=== PATIENT | female | born 1960 | race Caucasian/White ===

== ENCOUNTER → 2017-11-18 | Outpatient (CLI) | payer OTHER | END | disposition home or self-care (01) | LOC: LAB SHORT 13:43 → LAB SRC 13:43 | DX: N39.0 Urinary tract infection, site not specified (principal) | CPT/HCPCS: 87077; 87086; 87186 ==

== ENCOUNTER → 2021-03-28 | Outpatient (CLI) | payer OTHER ==
[~2021-03-28] MED LIST: DEXA6 PO; ONDA4ODT MM
[2021-03-28 08:40] LABS: BASOPHILS ABSOLUTE AUTO 0.01 K/mm3 (0.00-0.23); BASOPHILS PERCENT AUTO 0 % (0-2); EOSINOPHILS PERCENT AUTO 0 % (0-6); Hematocrit 40.7 % (33.0-51.0); Hemoglobin 13.7 g/dL (11.5-16.0); IMMATURE GRAN ABSOLUTE AUTO 0.04 K/mm3 (0.00-0.10); IMMATURE GRAN PERCENT AUTO 1 % (0-1); LYMPHOCYTES ABSOLUTE AUTO 0.64 K/mm3 (0.84-5.20); LYMPHOCYTES PERCENT AUTO 13 % (21-46); MONOCYTES ABSOLUTE AUTO 0.42 K/mm3 (0.16-1.47); MONOCYTES PERCENT AUTO 8 % (4-13); Mean Corpuscular HGB 28.8 pg (26.0-34.0); Mean Corpuscular HGB Conc 33.7 g/dL (31.5-36.5); Mean Corpuscular Volume 86 fL (80-100); NEUTROPHILS ABSOLUTE AUTO 4.01 K/mm3 (1.96-9.15); NEUTROPHILS PERCENT AUTO 78 % (41-73); RDW Coefficient Variation 13.2 % (11.7-14.2); RDW Standard Deviation 41.1 fL (35.1-46.3); Red Blood Cell Count 4.75 M/mm3 (3.80-5.20); White Blood Cell Count 5.12 K/mm3 (4.00-11.30)
[2021-03-28 08:51] LABS: Albumin, Blood 3.6 g/dL (3.4-5.0); Albumin/Globulin Ratio 0.9 (0.8-1.8); Bilirubin, Total 0.6 mg/dL (0.1-1.0); Calcium, Blood 8.5 mg/dL (8.5-10.1); Creatinine, Blood 1.19 mg/dL (0.40-1.00); Globulin, Blood 3.9 g/dL (2.2-4.0); Potassium, Blood 4.7 mmol/L (3.5-5.5); Total Protein, Blood 7.5 g/dL (6.4-8.2)
[2021-03-28 09:01] LABS: Mean Platelet Volume 9.9 fL (9.1-12.4); Platelet Count 105 K/mm3 (150-400)
== END | disposition home or self-care (01) ==
LOC: LAB 08:36 → LAB SHORT 08:36
PROVIDERS: Chiropractor
DX: U07.1 COVID-19 (principal)
CPT/HCPCS: 80053; 85025; 85379

== ENCOUNTER 2021-03-30 19:05 | Emergency (ER) | payer OTHER ==
[~2021-03-30] VITALS: Ht 157.5 cm; Wt 113.4 kg
[~2021-03-30 19:05] MED LIST changes: -ONDA4ODT MM
[2021-03-30] MEDS ORDERED: ONDA4ODT MM (19:43)
== END 2021-03-30 20:27 | disposition home or self-care (01) ==
LOC: ER 19:05
DX: U07.1 COVID-19 (principal); I10 Essential (primary) hypertension; E11.9 Type 2 diabetes mellitus without complications
CPT/HCPCS: 36415; 82947; 93005; 93010; 99284-25

== ENCOUNTER 2021-04-03 18:39 | Inpatient (IN) | payer OTHER ==
[~2021-04-03] VITALS: Ht 157.5 cm; Wt 106.1 kg
[~2021-04-03 18:39] MED LIST changes: +ONDA4ODT MM
[2021-04-03 19:18] LABS: Hematocrit 41.8 % (33.0-51.0); Hemoglobin 13.7 g/dL (11.5-16.0); Mean Corpuscular HGB 28.1 pg (26.0-34.0); Mean Corpuscular HGB Conc 32.8 g/dL (31.5-36.5); Mean Corpuscular Volume 86 fL (80-100); Mean Platelet Volume 10.1 fL (9.1-12.4); NRBC ABSOLUTE 0.17 K/mm3 (0.00-0.02); Platelet Count 122 K/mm3 (150-400); RDW Coefficient Variation 13.1 % (11.7-14.2); RDW Standard Deviation 40.9 fL (35.1-46.3); Red Blood Cell Count 4.87 M/mm3 (3.80-5.20); White Blood Cell Count 17.65 K/mm3 (4.00-11.30)
[2021-04-03 19:42] LABS: Troponin I 0.133 ng/mL (0.000-0.040)
[2021-04-03 19:48] LABS: Albumin, Blood 2.7 g/dL (3.4-5.0); Albumin/Globulin Ratio 0.8 (0.8-1.8); Bilirubin, Total 0.9 mg/dL (0.1-1.0); Bun/Creatinine Ratio 47.7 (12.0-20.0); Calcium, Blood 8.6 mg/dL (8.5-10.1); Creatinine, Blood 0.97 mg/dL (0.40-1.00); Globulin, Blood 3.6 g/dL (2.2-4.0); Potassium, Blood 3.7 mmol/L (3.5-5.5); Total Protein, Blood 6.3 g/dL (6.4-8.2)
[2021-04-03 20:08] LABS: BAND PERCENT MAN 20 % (0-8); BASOPHILS PERCENT MAN 0 % (0-2); EOSINOPHILS PERCENT MAN 0 % (0-6); LYMPHOCYTES % ATYPICAL MANUAL 4 % (0-0); LYMPHOCYTES ABSOLUTE MAN 0.88 K/mm3 (0.84-5.20); LYMPHOCYTES PERCENT MAN 1 % (21-46); MONOCYTES PERCENT MAN 0 % (4-13); NEUTROPHILS ABSOLUTE MAN 16.76 K/mm3 (1.96-9.15); SEG NEUTROPHILS PERCENT MAN 75 % (41-73); TOTAL CELLS COUNTED 100
[2021-04-03 20:11] LABS: PCO2 Arterial 33.4 mmHg (35-45); PO2 Arterial 65.5 mmHg (80-100); pH Blood Arterial 7.43 (7.35-7.45)
[2021-04-03 22:30] LABS: International Normalized Ratio 1.12
[2021-04-03] MEDS ORDERED: METF500 PO (23:02)
[2021-04-03] MEDS ORDERED: ESCI20 PO (23:02)
[2021-04-03] MEDS ORDERED: CALCIUM CIT 311 EAC7 PO (23:03)
[2021-04-03] MEDS ORDERED: BASAGLAR K100 UNIT/1 SC (23:03)
[2021-04-03] MEDS ORDERED: MAGNESIUM OXID500 MG PO (23:04)
[2021-04-03] MEDS ORDERED: OMEP20ER PO (23:04)
[2021-04-03] MEDS ORDERED: Crestor20 MG PO (23:04)
[2021-04-03] MEDS ORDERED: EUTHYROX175 MCG PO (23:04)
[2021-04-03] MEDS ORDERED: FURO20 PO (23:05)
[2021-04-03] MEDS ORDERED: LISI20 PO (23:05)
[2021-04-03] MEDS ORDERED: POTCHL20ER PO (23:05)
[2021-04-03] MEDS ORDERED: HYDCHL25 PO (23:06)
[2021-04-03] MEDS ORDERED: DOCU100 PO (23:06)
[2021-04-03] MEDS ORDERED: [UNRECOGNIZED DRUG - CODE] PO (23:07)
[2021-04-03] MEDS ORDERED: AMLO5 PO (23:07)
[2021-04-03] MEDS ORDERED: CETI5 PO (23:07)
[2021-04-03] MEDS ORDERED: PIOG15 PO (23:07)
[2021-04-03] MEDS ORDERED: MEGARED OMEGA PO (23:08)
[2021-04-03 23:39] LABS: C-Reactive Protein, High Sens. 66.7 mg/L (0.000-3.000)
[2021-04-04 03:36] LABS: BASOPHILS ABSOLUTE AUTO 0.07 K/mm3 (0.00-0.23); BASOPHILS PERCENT AUTO 0 % (0-2); EOSINOPHILS PERCENT AUTO 0 % (0-6); Hematocrit 40.4 % (33.0-51.0); Hemoglobin 13.3 g/dL (11.5-16.0); IMMATURE GRAN PERCENT AUTO 5 % (0-1); LYMPHOCYTES ABSOLUTE AUTO 0.78 K/mm3 (0.84-5.20); LYMPHOCYTES PERCENT AUTO 5 % (21-46); MONOCYTES ABSOLUTE AUTO 0.56 K/mm3 (0.16-1.47); MONOCYTES PERCENT AUTO 4 % (4-13); Mean Corpuscular HGB 28.4 pg (26.0-34.0); Mean Corpuscular HGB Conc 32.9 g/dL (31.5-36.5); Mean Corpuscular Volume 86 fL (80-100); Mean Platelet Volume 10.3 fL (9.1-12.4); NEUTROPHILS PERCENT AUTO 87 % (41-73); NRBC ABSOLUTE 0.23 K/mm3 (0.00-0.02); NRBC Auto 1.5 /100 WBC (0.0-0.2); Platelet Count 105 K/mm3 (150-400); RDW Coefficient Variation 13.2 % (11.7-14.2); RDW Standard Deviation 41.1 fL (35.1-46.3); Red Blood Cell Count 4.69 M/mm3 (3.80-5.20); White Blood Cell Count 15.61 K/mm3 (4.00-11.30)
[2021-04-04 03:53] LABS: Alanine Aminotransfer (ALT/SGP 17 U/L (12-78); Albumin, Blood 2.7 g/dL (3.4-5.0); Albumin/Globulin Ratio 0.8 (0.8-1.8); Alk Phos 69 U/L (50-136); Anion Gap 6 mmol/L (6-16); Aspartate Aminotrans (AST/SGOT 20 U/L (12-37); Bilirubin, Total 0.7 mg/dL (0.1-1.0); Blood Urea Nitrogen 32 mg/dL (8-24); Bun/Creatinine Ratio 35.5 (12.0-20.0); CO2, Blood 28 mmol/L (21-32); Calcium, Blood 8.4 mg/dL (8.5-10.1); Chloride, Blood 106 mmol/L (98-108); Globulin, Blood 3.5 g/dL (2.2-4.0); Glomerular Filtration Rate >60 (60-); Glucose, Blood 335 mg/dL (70-99); Potassium, Blood 3.8 mmol/L (3.5-5.5); Sodium, Blood 140 mmol/L (136-145); Total Protein, Blood 6.2 g/dL (6.4-8.2)
--- NOTE | 2021-04-04 04:37 | NUR ---
SHIFT SUMMARY PT TO UNIT FROM ER AT 0140. ALERT TO SELF. ON NRB 15L WITH CANNULA @ 10L. SPO2 90%. HEPARIN GTT STARTED. LUNGS CLEAR T/O. WITHIN 20 MINUTES, PT DESATTED TO 80%. DESPITE TURNING UP HIFLO CANNULA TO 15L WITH 15NRB OMN TOP, PT REMAINED IN LOW 80'S SPO2. RT CALLED, PT PLACED ON CPAP [id number], PT NOW 91%. PT RESTRAINED UPON ARRIVAL FROM ED, SBWR. THESE REMAIN PT TRIED TO TAKE MASK OFF SOON RESTRSINT WAS REMOVED. OTHERWISE, PT SETTLED IN ROOM. BED ALARM ON. IN ISOLATION.
--- NOTE | 2021-04-04 12:51 | NUR ---
Echocardiogram completed.
--- NOTE | 2021-04-04 14:33 | NUR ---
REASSESSMENT PT HAS CONTINUED TO BE ALERT AND ORIENTED THIS MORNING. SHE IS WEARING THE CPAP AND TOELRATING IT WITH ONLY MILD ANXIETY. SHE TOELRATED ABOUT A 10 MINUTE BREAK AT NOON WHILE WEARING 12L VIA HI FLOW NC BEFORE SHE DESATURATED TO THE LOW 80S. HER LUNGS ARE CLEAR. SR, BP STABLE. CORONA DRAINING WELL. SPOKE WT PT'S BRYANT RICHARDS, AFTER PT GAVE PERMISSION AND PROVIDED UPDATE. CONTINUING TO MONITOR.
--- NOTE | 2021-04-04 17:39 | NUR ---
SHIFT SUMMARY PT HAS BEEN RESTING ON THE CPAP THROUGHOUT THE DAY. SHE IS STILL NOT TOLERATING LONG BREAKS OFF OF THE CPAP EVEN WITH 12L HI FLOW NC. LUNGS ARE CLEAR, DIM. SR, BP STABLE. HEPARIN INFUSING. CONTINUING TO MONITOR.
--- NOTE | 2021-04-05 04:46 | NUR ---
SHIFT SUMMARY NO ACUTE CHANGES THIS SHIFT. VSS. REMAINS ON CPAP 15L 60% REMAINS AROUND 94%, IF PT TAKES MASK OFF, DESATS TO 75%. PT ANXIOUS AT TIMES. MENTATION WANES FROM ALERTNESS TO INTERMITTENT CONFUSION. PT REMAINS IN SR. CORONA PATENT AND DRAINING. PT ALMOST PULLED POWERGLIDE TODAY BUT IT WAS REDRESSED, HIDDEN UNDER ANTONIO WRAP AND CONTINUES TO INFUSE WELL AND DRAW EASILY. HEPARIN CONTINUING TO INFUSE PER PHARMACY. JAK MENON UPDATED ON PT COMNDITION. OTHERWISE, PT REMAINS IN BED, BED ALARM ON, IN ISOLATION.
[2021-04-05 07:56] LABS: Hematocrit 38.2 % (33.0-51.0); Hemoglobin 12.4 g/dL (11.5-16.0); Mean Corpuscular HGB 28.3 pg (26.0-34.0); Mean Corpuscular HGB Conc 32.5 g/dL (31.5-36.5); Mean Corpuscular Volume 87 fL (80-100); Mean Platelet Volume 11.2 fL (9.1-12.4); NRBC ABSOLUTE 0.06 K/mm3 (0.00-0.02); NRBC Auto 0.3 /100 WBC (0.0-0.2); Platelet Count 134 K/mm3 (150-400); RDW Coefficient Variation 13.7 % (11.7-14.2); RDW Standard Deviation 42.6 fL (35.1-46.3); Red Blood Cell Count 4.38 M/mm3 (3.80-5.20); White Blood Cell Count 18.27 K/mm3 (4.00-11.30)
[2021-04-05 08:16] LABS: Alanine Aminotransfer (ALT/SGP 15 U/L (12-78); Albumin, Blood 2.7 g/dL (3.4-5.0); Albumin/Globulin Ratio 0.8 (0.8-1.8); Alk Phos 71 U/L (50-136); Anion Gap 9 mmol/L (6-16); Aspartate Aminotrans (AST/SGOT 18 U/L (12-37); Bilirubin, Total 0.6 mg/dL (0.1-1.0); Blood Urea Nitrogen 27 mg/dL (8-24); CO2, Blood 27 mmol/L (21-32); Calcium, Blood 8.7 mg/dL (8.5-10.1); Chloride, Blood 105 mmol/L (98-108); Creatinine, Blood 0.75 mg/dL (0.40-1.00); Globulin, Blood 3.5 g/dL (2.2-4.0); Glomerular Filtration Rate >60 (60-); Glucose, Blood 322 mg/dL (70-99); Magnesium, Blood 2.6 mg/dL (1.6-2.4); Potassium, Blood 3.3 mmol/L (3.5-5.5); Sodium, Blood 141 mmol/L (136-145); Total Protein, Blood 6.2 g/dL (6.4-8.2)
[2021-04-05 08:21] LABS: BAND PERCENT MAN 3 % (0-8); BASOPHILS PERCENT MAN 0 % (0-2); EOSINOPHILS PERCENT MAN 0 % (0-6); LYMPHOCYTES ABSOLUTE MAN 0.54 K/mm3 (0.84-5.20); LYMPHOCYTES PERCENT MAN 3 % (21-46); MONOCYTES ABSOLUTE MAN 0.73 K/mm3 (0.16-1.47); MONOCYTES PERCENT MAN 4 % (4-13); MYELOCYTE ABSOLUTE MAN 0.18 K/mm3 (0.00-0.00); MYELOCYTE PERCENT MAN 1 % (0-0); SEG NEUTROPHILS PERCENT MAN 89 % (41-73); TOTAL CELLS COUNTED 100
--- NOTE | 2021-04-05 13:31 | NUR ---
CARE NOTE PT ALERT TO SELF AND PLACE BUT DISPLAYS CONFUSION AT TIMES. SHE FOLLOWS DIRECTIONS APPROPRIATELY AND IS PLEASANT W/ CARE. WHEN THIS NURSE CAME ON SHIFT SHE WAS ON CPAP W/ FIO2 55 %, CPAP PRESSURE 10. HIGH FLOW NASAL CANNULA TRIALED THIS AM AND PATIENT TOLERATED WELL WITH SATURATIONS RANGING FROM 88-92%. PATIENT PUT ON CPAP WHEN SLEEPING AND THEN HIGH FLOW AGAIN FOR LUNCH. WHILE PATIENT WAS EATING LUNCH, SHE BEGAN DESATING TO HIGH 70'S. CHARGE NURSE LUC WENT INTO PATIENT ROOM AND PUT CPAP BACK ON; SATURATIONS INCREASED BACK TO 96-97%. PATIENT IS NOW SLEEPING ON LEFT SIDE. BED ALARM ON. WILL CONTINUE TO MONITOR.
--- NOTE | 2021-04-05 18:06 | NUR ---
SHIFT SUMMARY PT REMAINS ALERT TO SELF AND PLACE BUT STILL DISPLAYS SOME DISORIENTATION. PT NOW ON HIGH FLOW NASAL CANNULA 15L/MIN AND SATURATIONS REMAIN AT 90%; PT ON CANNULA FOR DINNER, WILL BE PUT BACK ON CPAP AFTER DONE EATING. CPAP SETTINGS REMAIN AT 55% FIO2, PRESSURE 10. SBP RANGED 140-152, HR 68-73. LEFT POWERGLIDE IS INFUSING HEPARIN DRIP PER ORDERS, CORONA CATHETER IS PATENT AND DRAINING W/ GRAVITY CLEAR YELLOW URINE. THIS NURSE SPOKE W/ PATIENT DAUGHTER TIM AND UPDATED HER ON PATIENT STATUS. NO OTHER ACUTE CHANGES NOTED. CALL LIGHT IN REACH, BED ALARM ON. WILL CONTINUE TO MONITOR.
--- NOTE | 2021-04-06 06:04 | NUR ---
Shift Summary Pt has slept for the majority of the night. Pt required maximum assistance for repositioning, but tolerated well. Pt has been on CPAP at [id number] / 80% FiO2 and SpO2 has remained >90% for the duration. Pt has used call light appropriately. Pt is alert and oriented to self, place, and time, but seems to have difficulty recalling details of family when asked. Pt has remained in NSR and SB during sleep, multiple episodes of their heart rate dipping as low as 43 bpm. Pt has been easily arousible and denies any c/o chest pain or dizziness. No other acute changes noted.
[2021-04-06 09:08] LABS: Hematocrit 39.4 % (33.0-51.0); Hemoglobin 12.9 g/dL (11.5-16.0); Mean Corpuscular HGB 28.5 pg (26.0-34.0); Mean Corpuscular HGB Conc 32.7 g/dL (31.5-36.5); Mean Corpuscular Volume 87 fL (80-100); Mean Platelet Volume 11.5 fL (9.1-12.4); Platelet Count 147 K/mm3 (150-400); RDW Coefficient Variation 13.5 % (11.7-14.2); RDW Standard Deviation 42.4 fL (35.1-46.3); Red Blood Cell Count 4.53 M/mm3 (3.80-5.20); White Blood Cell Count 17.87 K/mm3 (4.00-11.30)
--- NOTE | 2021-04-06 09:17 | NUR ---
Call to daughter Valentine to update her on pt condition this morning. I was able to wean her down from 85% fio2 on the cpap to 70%, still 10 cm H20. She was intolerant of the hi flow nasal cannula, which was attempted at 15 l/min to see if she could wear it while eating breakfast; however, spo2 dropped within 1 minute to 84% so the cpap was put back on. Pt states she doesn't feel very hungry. Encouraged mobilization of the pt; she states she can self reposition from side to side in bed. Encouraged compliance also with staff requests to position with assistance in prone position, educated pt on the benefits of these activities for her lung healing and increasing her oxygenation. She verbalized understanding. Otherwise, she is calm, non-anxious, and apparently cheerful and oriented.
[2021-04-06 09:22] LABS: Anion Gap 7 mmol/L (6-16); Blood Urea Nitrogen 21 mg/dL (8-24); Bun/Creatinine Ratio 34.7 (12.0-20.0); CO2, Blood 28 mmol/L (21-32); Calcium, Blood 8.5 mg/dL (8.5-10.1); Chloride, Blood 104 mmol/L (98-108); Creatinine, Blood 0.61 mg/dL (0.40-1.00); Glomerular Filtration Rate >60 (60-); Glucose, Blood 321 mg/dL (70-99); Potassium, Blood 3.4 mmol/L (3.5-5.5); Sodium, Blood 139 mmol/L (136-145)
[2021-04-06 09:34] LABS: BAND PERCENT MAN 21 % (0-8); BASOPHILS PERCENT MAN 0 % (0-2); EOSINOPHILS PERCENT MAN 0 % (0-6); LYMPHOCYTES % ATYPICAL MANUAL 2 % (0-0); LYMPHOCYTES ABSOLUTE MAN 1.42 K/mm3 (0.84-5.20); LYMPHOCYTES PERCENT MAN 6 % (21-46); METAMYELOCYTE ABSOLUTE MAN 0.17 K/mm3 (0.00-0.00); METAMYELOCYTE PERCENT MAN 1 % (0-0); MONOCYTES ABSOLUTE MAN 0.17 K/mm3 (0.16-1.47); MONOCYTES PERCENT MAN 1 % (4-13); MYELOCYTE ABSOLUTE MAN 0.17 K/mm3 (0.00-0.00); MYELOCYTE PERCENT MAN 1 % (0-0); SEG NEUTROPHILS PERCENT MAN 68 % (41-73); TOTAL CELLS COUNTED 100
--- NOTE | 2021-04-06 09:53 | NUR ---
assisted to BSC for BM. On cpap during activity with fio2 unchanged , 70%. pt spo2 was 96% at rest before the activity, hypoxia to 81% during activity, improved to 92% while still on BSC.
--- NOTE | 2021-04-06 12:24 | NUR ---
Encouraged pt to sit up and eat while on AirVo. She is tolerating, spo2 91% with the activity.
--- NOTE | 2021-04-06 17:35 | NUR ---
episodes of hypoxia while sitting up in chair, eating dinner. Required bipap cpap for recovery. increased AirVo to 96% O2 delivery, and instructed pt to pause between in bite to breathe deeply and slowly a few times through her nose to maintain good spo2. Encouraged deep breathing and coughing. she has a moist, productive cough.
--- NOTE | 2021-04-06 18:26 | NUR ---
pt is managing to eat dinner, slowly, to maintain spo2 greater than 90%.
[2021-04-07 00:52] LABS: Hematocrit 37.2 % (33.0-51.0); Hemoglobin 12.3 g/dL (11.5-16.0); Mean Corpuscular HGB 28.7 pg (26.0-34.0); Mean Corpuscular HGB Conc 33.1 g/dL (31.5-36.5); Mean Corpuscular Volume 87 fL (80-100); Platelet Count 129 K/mm3 (150-400); RDW Coefficient Variation 13.5 % (11.7-14.2); RDW Standard Deviation 41.9 fL (35.1-46.3); Red Blood Cell Count 4.29 M/mm3 (3.80-5.20)
[2021-04-07 01:13] LABS: BAND PERCENT MAN 4 % (0-8); BASOPHILS PERCENT MAN 0 % (0-2); EOSINOPHILS PERCENT MAN 0 % (0-6); LYMPHOCYTES ABSOLUTE MAN 0.33 K/mm3 (0.84-5.20); LYMPHOCYTES PERCENT MAN 2 % (21-46); METAMYELOCYTE ABSOLUTE MAN 0.33 K/mm3 (0.00-0.00); METAMYELOCYTE PERCENT MAN 2 % (0-0); MONOCYTES ABSOLUTE MAN 0.16 K/mm3 (0.16-1.47); MONOCYTES PERCENT MAN 1 % (4-13); MYELOCYTE ABSOLUTE MAN 0.33 K/mm3 (0.00-0.00); MYELOCYTE PERCENT MAN 2 % (0-0); NEUTROPHILS ABSOLUTE MAN 15.53 K/mm3 (1.96-9.15); SEG NEUTROPHILS PERCENT MAN 89 % (41-73); TOTAL CELLS COUNTED 100
[2021-04-07 01:15] LABS: Alanine Aminotransfer (ALT/SGP 17 U/L (12-78); Albumin, Blood 2.4 g/dL (3.4-5.0); Albumin/Globulin Ratio 0.7 (0.8-1.8); Alk Phos 75 U/L (50-136); Anion Gap 4 mmol/L (6-16); Aspartate Aminotrans (AST/SGOT 16 U/L (12-37); Bilirubin, Total 0.4 mg/dL (0.1-1.0); Blood Urea Nitrogen 19 mg/dL (8-24); Bun/Creatinine Ratio 26.9 (12.0-20.0); CO2, Blood 31 mmol/L (21-32); Calcium, Blood 8.2 mg/dL (8.5-10.1); Chloride, Blood 103 mmol/L (98-108); Creatinine, Blood 0.71 mg/dL (0.40-1.00); Globulin, Blood 3.3 g/dL (2.2-4.0); Glomerular Filtration Rate >60 (60-); Glucose, Blood 255 mg/dL (70-99); Potassium, Blood 3.3 mmol/L (3.5-5.5); Sodium, Blood 138 mmol/L (136-145); Total Protein, Blood 5.7 g/dL (6.4-8.2)
--- NOTE | 2021-04-07 05:47 | NUR ---
Shift Summary Pt has slept for the majority of the night with no episodes of dyspnea or desaturation. Pt has maintained a sinus bradycardia of low 50's. Pt has been on Airvo 60L/80%FiO2 all night. Pt was able to transfer from chair to bed and reposition self with instruction and one person managing lines without desaturation below 88%, recovered quickly. Pt was A&O x4 and was able to maintain conversation with only minor memory recall issues. No other acute changes noted.
--- NOTE | 2021-04-07 10:34 | NUR ---
pt laying in bed trying to eat breakfast, a/ox3 but forgetful, pleasant and cooperative with care, she is currently on airvo and sats are in the low 80's while she eats, placed a nonrebreather in addition to airvo, sats are in mid 90s now, lungs are dim t/o, resp even and mildly labored, sats drop with activty, hrr, in the 60's, tele in place running sr, no edema noted, ppp+2, cap refill< 3sec, vs stable, afebrile, iv site is power glide to vania, site is clear and patent, infusing heperin as ordered, btx4, abd round soft nontender voids via olivia cath draining clear yellow urine, skin c/w/d, branden, hussein, rola, call light in reach.
--- NOTE | 2021-04-07 11:44 | NUR ---
Spiritual care visit conducted. Patient is lying in bed and resting. Patient easily awakens to the sound of her name. Patient talks about the struggles moving through the symptoms of the virus, about her family (Patient is very close to her son and daughter and their families) and about her Muslim derik (Patient attend [employer] [facility]). Patient tells me that she recently retired and that she did so because she wants to take care of her grandchildren so her children can afford to work. Patient is easily encouraged and especially by conversation centered around God. I provide therapeutic listening, recitation of scripture and prayer. Patient responds well and shows signs of being encouraged in her derik. I will continue to remain available to patient and family.
--- NOTE | 2021-04-07 17:53 | NUR ---
pt has needed the cpap since about noon, attempted to give her a break and put her back on airvo but sats dropped pretty rapidly to low 80's, pt laying on her side. no further changes, call light in reach.
[2021-04-08 06:08] LABS: Hematocrit 35.7 % (33.0-51.0); Hemoglobin 11.7 g/dL (11.5-16.0); Mean Corpuscular HGB 28.5 pg (26.0-34.0); Mean Corpuscular HGB Conc 32.8 g/dL (31.5-36.5); Mean Corpuscular Volume 87 fL (80-100); Platelet Count 148 K/mm3 (150-400); RDW Coefficient Variation 13.7 % (11.7-14.2); RDW Standard Deviation 42.8 fL (35.1-46.3); White Blood Cell Count 17.56 K/mm3 (4.00-11.30)
[2021-04-08 06:24] LABS: Anion Gap 5 mmol/L (6-16); Blood Urea Nitrogen 15 mg/dL (8-24); CO2, Blood 28 mmol/L (21-32); Calcium, Blood 8.3 mg/dL (8.5-10.1); Chloride, Blood 107 mmol/L (98-108); Glomerular Filtration Rate >60 (60-); Glucose, Blood 160 mg/dL (70-99); Lactate Dehydrogenase (Ld),Bld 387 U/L (100-240); Potassium, Blood 3.9 mmol/L (3.5-5.5); Sodium, Blood 140 mmol/L (136-145)
[2021-04-08 06:31] LABS: BAND PERCENT MAN 3 % (0-8); BASOPHILS PERCENT MAN 0 % (0-2); EOSINOPHILS ABSOLUTE MAN 0.17 K/mm3 (0.00-0.68); EOSINOPHILS PERCENT MAN 1 % (0-6); MONOCYTES ABSOLUTE MAN 0.17 K/mm3 (0.16-1.47); MONOCYTES PERCENT MAN 1 % (4-13); MYELOCYTE ABSOLUTE MAN 0.17 K/mm3 (0.00-0.00); MYELOCYTE PERCENT MAN 1 % (0-0); NEUTROPHILS ABSOLUTE MAN 17.03 K/mm3 (1.96-9.15); SEG NEUTROPHILS PERCENT MAN 94 % (41-73); TOTAL CELLS COUNTED 100
--- NOTE | 2021-04-08 06:41 | NUR ---
SHIFT SUMMARY PT A/OX4. APPROPRIATE WITH STAFF ABLE TO USE CALL LIGHT APPROPRIATELY. ON TELE SINUS AIDE IN THE 50'S TO 60'S. ON BIPAP AT 55% FIO2, MAINTAINS O2 ABOVE 92%. CORONA IN PLACE. URINE TYREE COLOR. STILL HAS HEPARIN DRIP PER DR ORDERS. NO ACUTE CHANGES. WILL CONT. TO MONITOR.
--- NOTE | 2021-04-08 09:15 | NUR ---
PATIENT HAD BEEN PLACED ON AIRVO 80L FIO2 60% BY CHARGE NURSE AURELIANO CLEMONS. PATIENT'S SPO2 NOTED TO START DECREASING DOWN TO 80%. WENT INTO PATIENT'S ROOM. INCREASED FIO2 TO 90% AND INSTRUCTED PATIENT TO TAKE DEEP BREATHS THROUGH HER NOSE. SPO2 INCREASED TO 90'S. PATIENT SAID THAT THE AIR WAS TOO IRRITATING TO HER NOSE AND REQUESTED TO BE PUT BACK ON BIPAP. PLACED BACK ON BIPAP 10/5 FIO2 70%.
--- NOTE | 2021-04-08 14:14 | NUR ---
CALLED DR. PATEL. DISCUSSED POC. SHE STATES PATIENT IS OK TO GET UP TO CHAIR (HAS PE AND DVTS). NOTIFIED HER PATIENT IS SUPPOSED TO RECEIVE MAG DAILY BUT LAST MAG WAS 2.6 ON 04/05. ORDERS RECEIVED TO HOLD MAG TODAY AND TO DRAW MAG LEVEL IN AM 04/09. NOTIFIED HER PATIENT'S PUPILS ARE SLIGHTLY DIFFERENT SIZES. PATIENT IS ORIENTED EXCEPT DID NOT KNOW THE NAME OF THE HOSPITAL. SHE DOES NOT REMEMBER DR. PATEL SEEING HER THIS AM. SHE IS ABLE TO RAISE HER ARMS. SMILE IS EQUAL, TONGUE STICKS OUT STRAIGHT. DR. PATEL STATES SHE WOULD REVIEW PATIENT'S HISTORY, FOR NOW DO NEURO CHECKS Q4H.
[2021-04-08 15:37] LABS: Vancomycin, Trough <0.8 ug/mL (5.0-10.0)
--- NOTE | 2021-04-08 16:15 | NUR ---
DR. PATEL AT BEDSIDE. DISCUSSED POC. PATIENT REPORTING HEADACHE RATED 9/10, PLAN IS TO GIVE TYLENOL PER EMAR. CONTINUE WITH Q4H NEURO CHECKS.
--- NOTE | 2021-04-08 17:45 | NUR ---
ASKED SUSIE IN PHARMACY IF THE VANCO WOULD BE ORDERED SHE HAD A VANCO LAB DRAWN. SUSIE LOOKED INTO THE ORDER AND NOTED THAT THERE IS NOT A VANCO ORDER.
--- NOTE | 2021-04-08 19:18 | NUR ---
SHIFT SUMMARY: PATIENT A/OX3 BUT IS FORGETFUL AT TIMES. NEURO CHECKX Q4H. ON AIRVO FOR MOST OF THE DAY, CURRENT SETTINGS ARE 60L FIO2 70%. SHE DOES DESATURATE WITH MOVEMENT OR WHEN EATING. THE AIRVO WAS IRRITATING HER NOSE SO SALINE SPRAY WAS ORDERED, PATIENT STATES THAT IT DOES HELP. HEPARIN INFUSING PER PHARMACY. TURNING Q2H. REFUSED CHAIR TONIGHT, STATES THAT SHE IS TIRED. MAGNESIUM HELD TODAY, WILL HAVE MAG LEVEL IN AM. BRIDGE OF NOSE IS RED WITH SMALL AMOUNT OF BREAKDOWN, PLACED GEL BIPAP PAD TO BRIDGE OF NOSE WHENEVER SHE WAS WEARING BIPAP. REPORT GIVEN TO ONCOMING RN.
[2021-04-09 05:56] LABS: BASOPHILS ABSOLUTE AUTO 0.04 K/mm3 (0.00-0.23); BASOPHILS PERCENT AUTO 0 % (0-2); EOSINOPHILS ABSOLUTE AUTO 0.02 K/mm3 (0.00-0.68); EOSINOPHILS PERCENT AUTO 0 % (0-6); Hematocrit 36.4 % (33.0-51.0); Hemoglobin 11.7 g/dL (11.5-16.0); IMMATURE GRAN ABSOLUTE AUTO 1.03 K/mm3 (0.00-0.10); IMMATURE GRAN PERCENT AUTO 5 % (0-1); LYMPHOCYTES ABSOLUTE AUTO 0.72 K/mm3 (0.84-5.20); LYMPHOCYTES PERCENT AUTO 4 % (21-46); MONOCYTES ABSOLUTE AUTO 0.49 K/mm3 (0.16-1.47); MONOCYTES PERCENT AUTO 3 % (4-13); Mean Corpuscular HGB 28.4 pg (26.0-34.0); Mean Corpuscular HGB Conc 32.1 g/dL (31.5-36.5); Mean Corpuscular Volume 88 fL (80-100); Mean Platelet Volume 10.9 fL (9.1-12.4); NEUTROPHILS ABSOLUTE AUTO 17.26 K/mm3 (1.96-9.15); NEUTROPHILS PERCENT AUTO 88 % (41-73); Platelet Count 166 K/mm3 (150-400); RDW Coefficient Variation 13.7 % (11.7-14.2); RDW Standard Deviation 43.6 fL (35.1-46.3); Red Blood Cell Count 4.12 M/mm3 (3.80-5.20); White Blood Cell Count 19.56 K/mm3 (4.00-11.30)
[2021-04-09 06:41] LABS: Anion Gap 5 mmol/L (6-16); Blood Urea Nitrogen 15 mg/dL (8-24); Bun/Creatinine Ratio 24.8 (12.0-20.0); CO2, Blood 28 mmol/L (21-32); Calcium, Blood 8.5 mg/dL (8.5-10.1); Chloride, Blood 106 mmol/L (98-108); Creatinine, Blood 0.61 mg/dL (0.40-1.00); Glomerular Filtration Rate >60 (60-); Glucose, Blood 189 mg/dL (70-99); Magnesium, Blood 2.4 mg/dL (1.6-2.4); Potassium, Blood 4.1 mmol/L (3.5-5.5); Sodium, Blood 139 mmol/L (136-145)
--- NOTE | 2021-04-09 06:43 | NUR ---
SHIFT SUMMARY PT. A/OX3 CONT. TO AT TIMES BE FORGETFUL/CONFUSED. CALLS APPROPRIATELY WHEN NEEDED. ON TELE @ SB IN THE HIGH 50'S. HAS HEPARIN DRIP PER MD ORDERS AND PHARMACY. . PT. DENIES ANY PAIN. CONT. Q4H NEURO CHECKS; NO ACUTE CHANGES DURING THE NIGTH. CONT. EDUCATED PT ON PRONING BUT CONT. TO REFUSE. CONT. TO BE ON AIRVO MAINTAINING O2 STATS ABOVE 92%. CORONA IN PLACE; TYREE COLOR URINE. NO ACUTE CHANGES. WILL CONT. TO MONITOR PT.
--- NOTE | 2021-04-09 07:50 | NUR ---
Jerome of care Received report from night nurse. Pt is resting in bed reading on her phone. She denies any discomfort and reports that she got up out of bed for a short time yesterday but that she prefers not to. She has her AIRVO on @ 45 LPM with sats in the high 90's. Her olivia is patent with yellow urine output and fluids are at the bedside. She Has heparin running as dosed per pharmacy. both her IVs are patent. She is able to make her needs known and calls for help when needed.
--- NOTE | 2021-04-09 16:11 | NUR ---
SHIFT SUMMARY Pt has been a/o x 4 and has no complaints. She has been on the AIRVO or BIPAP today to maintain sats in the 90's. She has been in NSR with a rate in the 70's. She declined a bed bath as she got one yesterday and she did get up to the recliner for the afternoon. Her daughter has been updated. Her Heparin continues to run as dosed by the pharmacy with no changes today. The doctor rounded this morning and gave no new orders. Her blood sugars have been covered with sliding scale as ordered. She is a x 2 assist for transfers. She is able to make her needs known and calls for help when needed.
[2021-04-10 05:11] LABS: BASOPHILS ABSOLUTE AUTO 0.04 K/mm3 (0.00-0.23); BASOPHILS PERCENT AUTO 0 % (0-2); EOSINOPHILS ABSOLUTE AUTO 0.03 K/mm3 (0.00-0.68); EOSINOPHILS PERCENT AUTO 0 % (0-6); Hematocrit 37.4 % (33.0-51.0); Hemoglobin 12.1 g/dL (11.5-16.0); IMMATURE GRAN PERCENT AUTO 4 % (0-1); LYMPHOCYTES ABSOLUTE AUTO 0.58 K/mm3 (0.84-5.20); LYMPHOCYTES PERCENT AUTO 3 % (21-46); MONOCYTES ABSOLUTE AUTO 0.51 K/mm3 (0.16-1.47); MONOCYTES PERCENT AUTO 2 % (4-13); Mean Corpuscular HGB 28.4 pg (26.0-34.0); Mean Corpuscular HGB Conc 32.4 g/dL (31.5-36.5); Mean Corpuscular Volume 88 fL (80-100); Mean Platelet Volume 10.6 fL (9.1-12.4); NEUTROPHILS ABSOLUTE AUTO 19.21 K/mm3 (1.96-9.15); NEUTROPHILS PERCENT AUTO 91 % (41-73); Platelet Count 158 K/mm3 (150-400); RDW Coefficient Variation 13.8 % (11.7-14.2); RDW Standard Deviation 43.5 fL (35.1-46.3); Red Blood Cell Count 4.26 M/mm3 (3.80-5.20); White Blood Cell Count 21.17 K/mm3 (4.00-11.30)
[2021-04-10 05:35] LABS: Anion Gap 3 mmol/L (6-16); Blood Urea Nitrogen 13 mg/dL (8-24); Bun/Creatinine Ratio 23.3 (12.0-20.0); CO2, Blood 29 mmol/L (21-32); Calcium, Blood 8.9 mg/dL (8.5-10.1); Chloride, Blood 108 mmol/L (98-108); Creatinine, Blood 0.56 mg/dL (0.40-1.00); Glomerular Filtration Rate >60 (60-); Glucose, Blood 86 mg/dL (70-99); Lactate Dehydrogenase (Ld),Bld 366 U/L (100-240); Magnesium, Blood 2.2 mg/dL (1.6-2.4); Potassium, Blood 4.1 mmol/L (3.5-5.5); Sodium, Blood 140 mmol/L (136-145)
--- NOTE | 2021-04-10 06:38 | NUR ---
SHIFT SUMMARY PT A/OX3 WITH PERIODS OF FORGETFULNESS. ON TELE ON SB IN THE HIGH 50'S. CALLS APPROPRIATELY FOR ASSISTANCE. CONT. ON HEPARIN DRIP ACCORDING TO ORDERS. WAS SITTING IN RECLINER AT BEGINNING OF SHIFT AND WAS TRANSFERRED TO BED WITH 2 PERSON ASSIST AND WALKER. ON AIRVO ON 50L 70%FIO2 MAINTAINING O2 ABOVE 92%. DAUGHTER CALLED AND UPDATED. NO ACUTE CHANGES T/O THE NOC. WILL CONT. TO MONITOR PT. BED IN LOWEST POSITION WITH CALL LIGHT W/I REACH.
--- NOTE | 2021-04-10 18:28 | NUR ---
SHIFT ASSESSMENT: PT ADMITTED FOR RESP FAILURE WITH COVID 19 INFECTION, SHE HAS BEEN ON HIFLOW 02 AND HAS BEEN TENUOUS WITH SPO2, NOTING TO DESAT QUICKLY IF O2 CANNULA DISLODGED FOR ANY LENGTH OF TIME, SLOW TO RECOVER, REQUIRING 100% FIO2 TO DO SO. DESPITE THIS, PT REPORTS FEELING FAIRLY WELL, DENIES DYSPNEA, DENIES PAIN. BLOOD GLUCOSE IN AM WAS 56 AND MORNING INSULIN HELD UNTIL CLARIFICATION OF ORDER WHICH WAS SUBSEQUENTLY ADJUSTED. PT IS ON A HEPARIN GTT FOR AT 16.5 UNITS/KG/HR AND HAS BEEN THERAPEUTIC HOWEVER PTT CHECKED PER PHARMACY IT HAS BEEN BORDERLINE AND IT WAS FOUND TO BE LOW. PHARMACY ORDER TO INCREASE HEPARIN RATE TO 17 UNITS/KG/HR WITH NEXT PTT TO BE DRAWN AT 1999.
[2021-04-11 06:32] LABS: BASOPHILS ABSOLUTE AUTO 0.02 K/mm3 (0.00-0.23); BASOPHILS PERCENT AUTO 0 % (0-2); EOSINOPHILS ABSOLUTE AUTO 0.02 K/mm3 (0.00-0.68); EOSINOPHILS PERCENT AUTO 0 % (0-6); Hematocrit 34.5 % (33.0-51.0); Hemoglobin 11.1 g/dL (11.5-16.0); IMMATURE GRAN PERCENT AUTO 2 % (0-1); LYMPHOCYTES ABSOLUTE AUTO 0.47 K/mm3 (0.84-5.20); LYMPHOCYTES PERCENT AUTO 3 % (21-46); MONOCYTES ABSOLUTE AUTO 0.48 K/mm3 (0.16-1.47); MONOCYTES PERCENT AUTO 3 % (4-13); Mean Corpuscular HGB 28.7 pg (26.0-34.0); Mean Corpuscular HGB Conc 32.2 g/dL (31.5-36.5); Mean Corpuscular Volume 89 fL (80-100); Mean Platelet Volume 10.7 fL (9.1-12.4); NEUTROPHILS ABSOLUTE AUTO 15.55 K/mm3 (1.96-9.15); NEUTROPHILS PERCENT AUTO 92 % (41-73); Platelet Count 154 K/mm3 (150-400); RDW Coefficient Variation 13.9 % (11.7-14.2); RDW Standard Deviation 44.4 fL (35.1-46.3); Red Blood Cell Count 3.87 M/mm3 (3.80-5.20); White Blood Cell Count 16.94 K/mm3 (4.00-11.30)
--- NOTE | 2021-04-11 06:40 | NUR ---
SHIFT SUMMARY PT A/OX4 AND AT TIMES FORGETFUL. DOES CALL STAFF APPROPRIATELY. ON TELE AT SR WHEN AWAKE AND SB WHEN SLEEPING. CONT. TO USE HFNC ON 80% FIO2 WITH O2 ABOVE 92%. DID DESAT WHEN TALKING AND DRINKING WATER BUT RECUPERATES QUICKLY. CONT. TO REFUSE PRONING EVEN THOUGH WAS EDUCATED ON IMPORTANCE OF PRONING. HAS CORONA IN PLACE; YELLOW URINE OUTPUT. NEURO CHECKS WERE CONT. STILL ON HEPARIN DRIP PER ORDERS. NO ACUTE CHANGES T/O THE NIGHT. BED IN LOWEST POSITION, CALL LIGHT W/I REACH, AND WILL CONT. WITH FREQUENT CHECKS.
[2021-04-11 06:45] LABS: Anion Gap 5 mmol/L (6-16); Blood Urea Nitrogen 13 mg/dL (8-24); Bun/Creatinine Ratio 22.6 (12.0-20.0); CO2, Blood 30 mmol/L (21-32); Calcium, Blood 8.6 mg/dL (8.5-10.1); Chloride, Blood 107 mmol/L (98-108); Creatinine, Blood 0.58 mg/dL (0.40-1.00); Glomerular Filtration Rate >60 (60-); Glucose, Blood 146 mg/dL (70-99); Potassium, Blood 4.9 mmol/L (3.5-5.5); Sodium, Blood 142 mmol/L (136-145)
--- NOTE | 2021-04-11 09:12 | NUR ---
(HOSPITAL SYSTEM WAS DOWN YESTERDAY, THIS NOTE IS FOR 04/10/21) Per chart review with Dr. Munroe, pt is improving and still on high flow O2. No plan for discharge at this time. -larry
--- NOTE | 2021-04-11 11:00 | NUR ---
PT WAS UP AT BSC, O2 DESATURATED DOWN TO 58% AT LOWEST. AIRVO O2 TURNED UP WITH LITTLE AFFECT. RESPIRATORY THERAPY CALLED AND PT PLACED BACK ON BIPAP TO RECOVER. ASSISTED BACK TO BED, PLACED ON R SIDE WITH HOB ELEVATED. O2 BACK UP AT 92-94% WITH BIPAP. PT INSTRUCTED TO LEAVE BIPAP ON PER RT.
--- NOTE | 2021-04-11 11:59 | NUR ---
PT SWITCHED BACK TO AIRVO, 50LPM AND FIO2 70%. PT TOLERATING WELL AT THIS TIME. SITTING UP IN BED FOR LUNCH. INSTRUCTED TO TAKE BREATHS IN BETWEEN BITES OF FOOD.
--- NOTE | 2021-04-11 14:25 | NUR ---
04/11/21- per chart review with Dr. Munroe, pt is having varying O2 demand. This morning pt was on high flow NC with destat when talking or drinking water. Pt refuses to proning even though educated on the importance. Airvo was turned up with litte affect and pt was switched between BiPap and Airvo. No discharge plan at this time.-kjb
--- NOTE | 2021-04-11 17:49 | NUR ---
SHIFT SUMMARY PT HAS BEEN A/O TODAY, PLEASANT AND COOPERATIVE WITH CARE. CJ PATENT, OFF FLOOR, STAT LOCK ON. PT HAD BEDBATH TODAY. PT DID TRY TO USE BSC WITH ASSISTANCE THIS MORNING HOWEVER HER O2 DROPPED WITH EXERTION; SEE PREVIOUS NOTE. PT PLACED ON BIPAP FOR ABOUT 1.5 HRS AND ASSISTED BACK TO BED. PT HAS BEEN BACK ON AIRVO SINCE LUNCH AND IS TOLERATING WELL, LYING ON HER SIDE WITH O2 SAT IN THE 90'S. PT INSTRUCTED ON STRICT BEDREST. VSS TODAY. PT'S DAUGHTER WAS UPDATED TODAY WITH PT CONSENT.
[2021-04-12 03:43] LABS: BASOPHILS ABSOLUTE AUTO 0.03 K/mm3 (0.00-0.23); BASOPHILS PERCENT AUTO 0 % (0-2); EOSINOPHILS ABSOLUTE AUTO 0.02 K/mm3 (0.00-0.68); EOSINOPHILS PERCENT AUTO 0 % (0-6); Hemoglobin 11.3 g/dL (11.5-16.0); IMMATURE GRAN ABSOLUTE AUTO 0.38 K/mm3 (0.00-0.10); IMMATURE GRAN PERCENT AUTO 2 % (0-1); LYMPHOCYTES ABSOLUTE AUTO 0.55 K/mm3 (0.84-5.20); LYMPHOCYTES PERCENT AUTO 3 % (21-46); MONOCYTES ABSOLUTE AUTO 0.55 K/mm3 (0.16-1.47); MONOCYTES PERCENT AUTO 3 % (4-13); Mean Corpuscular HGB Conc 32.3 g/dL (31.5-36.5); Mean Corpuscular Volume 90 fL (80-100); Mean Platelet Volume 10.4 fL (9.1-12.4); NEUTROPHILS ABSOLUTE AUTO 16.99 K/mm3 (1.96-9.15); NEUTROPHILS PERCENT AUTO 92 % (41-73); Platelet Count 146 K/mm3 (150-400); RDW Coefficient Variation 13.8 % (11.7-14.2); RDW Standard Deviation 44.2 fL (35.1-46.3); White Blood Cell Count 18.52 K/mm3 (4.00-11.30)
[2021-04-12 04:00] LABS: Anion Gap 3 mmol/L (6-16); Blood Urea Nitrogen 14 mg/dL (8-24); CO2, Blood 32 mmol/L (21-32); Chloride, Blood 104 mmol/L (98-108); Creatinine, Blood 0.58 mg/dL (0.40-1.00); Glomerular Filtration Rate >60 (60-); Glucose, Blood 175 mg/dL (70-99); Potassium, Blood 4.9 mmol/L (3.5-5.5); Sodium, Blood 139 mmol/L (136-145)
--- NOTE | 2021-04-12 05:44 | NUR ---
PATIENT IS ALERT AND ORIENATED ABLE TO MAKE NEEDS KNOWN, CALL LIGHT WITHIN REACH, BED ALARM ON, SLEPT THROUGHOUT THE EVENING AFTER 10PM, DECREASED OXYGEN THIS EVENING NOW ON AIRVO 60L/ 50% FIO2 DOWN FROM 60%, PATIENT HYPERTENSIVE OFF AND ON THIS EVENING RECEIVED NEW ORDERS FOR HYDRALYZINE 10MG IVP FOR SBP . 160 Q6 PRN, CORONA CATETHER PATENT DRAINING CLEAR YELLOW URINE, HEPARIN GTT WAS INCREASED BY 1 UNIT NOW RUNNING AT 18UNITS AT 23ML/HR.
--- NOTE | 2021-04-12 13:00 | NUR ---
UPDATE WORKED W/ THERAPY EARLIER & DID WELL. FIO2 WAS INCREASED TO 80% IN PREPARATION OF THERAPY SESSION. PT WAS ABLE TO TOLERATE DANGLING AT BEDSIDE FOR APPROX 5 MINS BUT NOT STAND YET. POST THERAPY SESSION, PT FELT WELL & ACCOMPLISHED. MADE GOALS FOR STANDING TOMORROW. AFTER THERAPY SESSION FIO2 WAS DROPPED BY 10% EVERY 20-30 MINS TO GET BACK TO 50%. CONT BIOX REPORTS LOWEST O2 SAT WAS 90%.
--- NOTE | 2021-04-12 19:33 | NUR ---
SHIFT SUMMARY PT HAS BEEN PLEASANT & COOPERATIVE T/O SHIFT. AIRVO HAS BEEN AT FIO2 45% @ 60L SINCE MIDDAY. WAS ABLE TO TOLERATE DANGLING FOR 5 MINS TODAY (SEE PRIOR NOTE). AFTERNOON BLOOD SUGAR WAS 67, JUICE & SNACK WAS GIVEN & MD CALLED. NEW ORDERS RECEIVED. RECHECK IMPROVED. PT WAS ASYMTOMATIC THRU EVENT.
[2021-04-13 03:56] LABS: BASOPHILS ABSOLUTE AUTO 0.07 K/mm3 (0.00-0.23); BASOPHILS PERCENT AUTO 0 % (0-2); EOSINOPHILS ABSOLUTE AUTO 0.19 K/mm3 (0.00-0.68); EOSINOPHILS PERCENT AUTO 1 % (0-6); Hematocrit 36.6 % (33.0-51.0); IMMATURE GRAN ABSOLUTE AUTO 0.95 K/mm3 (0.00-0.10); IMMATURE GRAN PERCENT AUTO 3 % (0-1); LYMPHOCYTES ABSOLUTE AUTO 3.15 K/mm3 (0.84-5.20); LYMPHOCYTES PERCENT AUTO 11 % (21-46); MONOCYTES ABSOLUTE AUTO 1.25 K/mm3 (0.16-1.47); MONOCYTES PERCENT AUTO 4 % (4-13); Mean Corpuscular HGB Conc 32.8 g/dL (31.5-36.5); Mean Corpuscular Volume 88 fL (80-100); Mean Platelet Volume 10.8 fL (9.1-12.4); NEUTROPHILS ABSOLUTE AUTO 24.48 K/mm3 (1.96-9.15); NEUTROPHILS PERCENT AUTO 81 % (41-73); Platelet Count 257 K/mm3 (150-400); RDW Coefficient Variation 14.1 % (11.7-14.2); RDW Standard Deviation 44.7 fL (35.1-46.3); Red Blood Cell Count 4.14 M/mm3 (3.80-5.20); White Blood Cell Count 30.09 K/mm3 (4.00-11.30)
[2021-04-13 04:11] LABS: Anion Gap 6 mmol/L (6-16); Blood Urea Nitrogen 16 mg/dL (8-24); Bun/Creatinine Ratio 28.1 (12.0-20.0); CO2, Blood 30 mmol/L (21-32); Calcium, Blood 9.3 mg/dL (8.5-10.1); Chloride, Blood 106 mmol/L (98-108); Creatinine, Blood 0.57 mg/dL (0.40-1.00); Glomerular Filtration Rate >60 (60-); Glucose, Blood 55 mg/dL (70-99); Potassium, Blood 3.8 mmol/L (3.5-5.5); Sodium, Blood 142 mmol/L (136-145)
--- NOTE | 2021-04-13 04:34 | NUR ---
PT GIVEN ORANGE JUICE, MILK, LUNCH MEAT AND CRACKERS. CBG 55 WITH AM LAB DRAW. PT TOLERATING ALL ITEMS ABOVE, DENIES FEELING LIKE HER CBG IS LOW.
--- NOTE | 2021-04-13 05:41 | NUR ---
SHIFT SUMMARY - PT'S WBC INCREASED TO 30.09 THIS AM - SEE LAB. PT'S CBG WITH LAB WAS 55 THIS AM, AND ALL EVENING INSULIN WAS HELD LAST NOC. CBG CURRENTLY 74, AFTER SNACK AND PO FLUIDS GIVEN. PT DID DESAT WHEN [place] WAS [place] [facility] [place]GINNING OF THE SHIFT - SATS TO LOW 70'S, WITH RECOVERY ONCE PT REMINDED TO TAKE DEEP BREATHS THROUGH HER NOSE. OTHERWISE, NO ACUTE CHANGES THROUGHOUT THIS SHIFT. PT HAS SLEPT FOR APPX 5-6 HOURS TONIGHT ON AIRVO 60L/45% - CONTINOUS BIOX ON. PT DENIED CHEST PAIN, HEADACHE, NAUSEA, PAIN, NUMBNESS OR TINGLING, OR SOB. PT DENIED SYMPTOMS WITH CBG OF 55, PT WAS ALERT, ABLE TO DRINK FLUIDS/EAT FOOD. CORONA PUT OUT CLEAR YELLOW URINE. HEPARIN DRIP INFUSING TO LEFT UA POWER GLIDE WITHOUT COMPLICATIONS, LINE DRAWS EASILY FOR LAB. PT REPORTS A NON-PRODUCTIVE COUGH. CALL LIGHT WITHIN REACH. BED IN LOW POSITION. FLUIDS AT BEDSIDE. BED ALARM ON FOR PT SAFETY.
--- NOTE | 2021-04-13 13:09 | NUR ---
per chart review with Dr. Munroe, no plan for discharge.-larry ([email or web address], 1:09 PM)
--- NOTE | 2021-04-13 18:41 | NUR ---
END OF SHIFT SUMMARY: AIRVO 60L AT 70% FIO2. INFUSING: HEPARIN WAS DC'D, XERALTO STARTED PATIENT AGREEABLE TO PRONING TONIGHT. WILL INFORM NIGHT NURSE. HESISTANT THROUGHOUT THE ENTIRE DAY TO REPOSITION. AFEBRILE. LUNGS SOUNDS DIM ON RIGHT MID AND BILATERALLY ON THE LOWER LOBES. NS. DENIES CHEST PAIN. EDEMA HAS DECREASED IN LE. PATIENT WAS HAVING BOUTS OF HYPOGLYCEMIA, HOSP HAS CHANGED INSULIN ORDERS AND NEEDED COVERAGE ONLY THIS EVENING. AC HS CBGS. PATIENT DESATURATED WITH PHYSICAL THERAPY AROUND 1200 AND RECOVERED, BUT THIS EVENING, TWICE SHE DESATURATED AND NEEDED AN INCREASE TO SP02. SHE HAS BEEN SATURATING FORM HIGH 70'S TO 100%. CURRENT SETTIGNS SHE IS SATURATING >96%. WEAK PEDAL PULSES. A/O X 4.
[2021-04-14 04:02] LABS: BASOPHILS ABSOLUTE AUTO 0.01 K/mm3 (0.00-0.23); BASOPHILS PERCENT AUTO 0 % (0-2); EOSINOPHILS PERCENT AUTO 0 % (0-6); IMMATURE GRAN ABSOLUTE AUTO 0.18 K/mm3 (0.00-0.10); IMMATURE GRAN PERCENT AUTO 2 % (0-1); LYMPHOCYTES ABSOLUTE AUTO 0.44 K/mm3 (0.84-5.20); LYMPHOCYTES PERCENT AUTO 4 % (21-46); MONOCYTES ABSOLUTE AUTO 0.17 K/mm3 (0.16-1.47); MONOCYTES PERCENT AUTO 2 % (4-13); Mean Corpuscular HGB 28.6 pg (26.0-34.0); Mean Corpuscular HGB Conc 32.4 g/dL (31.5-36.5); Mean Corpuscular Volume 89 fL (80-100); Mean Platelet Volume 10.1 fL (9.1-12.4); NEUTROPHILS ABSOLUTE AUTO 10.44 K/mm3 (1.96-9.15); NEUTROPHILS PERCENT AUTO 93 % (41-73); Platelet Count 135 K/mm3 (150-400); RDW Coefficient Variation 14.2 % (11.7-14.2); Red Blood Cell Count 3.84 M/mm3 (3.80-5.20); White Blood Cell Count 11.24 K/mm3 (4.00-11.30)
[2021-04-14 04:25] LABS: Anion Gap 6 mmol/L (6-16); Blood Urea Nitrogen 16 mg/dL (8-24); Bun/Creatinine Ratio 32.1 (12.0-20.0); CO2, Blood 29 mmol/L (21-32); Chloride, Blood 103 mmol/L (98-108); Glomerular Filtration Rate >60 (60-); Glucose, Blood 237 mg/dL (70-99); Potassium, Blood 4.3 mmol/L (3.5-5.5); Sodium, Blood 138 mmol/L (136-145)
--- NOTE | 2021-04-14 06:02 | NUR ---
SHIFT SUMMARY ASSUMED CARE OF PT AT 1900. PT IS A/OX4. HEART SOUNDS REGULAR, PT IS AIDE WHEN SLEEPING. LUNG SOUNDS HAVE CRACKLES T/O. PT WAS ON AIRVO 50L/55%. PT WAS TITRATED DOWN FROM 75%. PT HAS A CORONA DRAINING WITH CATHETER. DAUGHTER CALLED CONCERNED ABOUT IF PT WOULD GO TO A SNF AFTER DISCHARGE BEUCASE HER BROTHER HAS A HARD TIME TAKING CARE OF HER. CALL LIGHT IN REACH, BED IN LOWEST POSITION.
--- NOTE | 2021-04-14 17:46 | NUR ---
PT ADMITTED FOR HYPOXIC RESPIRATORY FAILURE DUE TO COVID, SHE STATES THAT SHE IS FEELING BETTER, SHE CONTINUES ON HIGH FLOW O2 VIA AIRVO AT 50L AND 55%, SPO2 IN THE LOW TO MID 90S, ALTHOUGH SHE DOES DESAT WHEN SHE IS ACTIVE OR IF O2 IS OFF FOR EVEN SHORT PERIODS OF TIME. PT DENIES PAIN OR DISCOMFORT. CORONA CATH IN PLACE DRAINING CLEAR YELLOW URINE, PT TAKING DIET WELL, BLOOD SUGAR CHECKS AC+HS WITH HIGH SCALE SLIDING SCALE INSULIN.
--- NOTE | 2021-04-15 05:22 | NUR ---
SHIFT SUMMARY ASSUMED CARE OF PT AT 1900. PT IS A/OX4. HEART SOUNDS REGULAR, PT WAS VERY BRADYCARDIC T/O THE SHIFT WITH HR BETWEEN 40-60. WHEN AWAKE PT PULSE IS 60 AND ABOVE. LUNG SOUNDS HAVE CRACKES T/O, PT WAS ON AIRVO AT 30L 60% FIO2. PT HAS A CORONA, DRAINING WITH GRAVITY. PT HAS NO NEW COMPLAINTS. CALL LIGHT IN REACH, BED IN LOWEST POSTION.
--- NOTE | 2021-04-15 14:01 | NUR ---
[id number]: SAFE HANDOFF REC'D, ASSUMED CARE OF PT, ASSESSMENT COMPLETED. PT ADMITTED FOR RESPIRATORY FAILURE WITH COVID. PT REPORTS THAT SHE IS FEELING BETTER, SHE CONTINUES ON HIFLOW O2 VIA AIRVO BUT HAS BEEN TOLERATING SLOW DECREASES IN FLOW AND FIO2. 1100: PT ASSISTED UP TO THE CHAIR, TOLERATED ACTIVITY WELL.
--- NOTE | 2021-04-16 06:02 | NUR ---
SHIFT SUMMARY ASSUMED CARE OF PT AT 1900. PT IS A/OX4. HEART SOUNDS REGULAR, PT HAS EPISODES AND AIDE CARDIA; HER PULSE DIPS TO 39 BPM WHILE SLEEPING. LUNG SOUNDS HAVE CRACKLES T/O. PT WAS ON 8L NC UNTIL SHE TRANSFERED FROM CHAIR TO BED, IN WHICH SHE NEEDED 15L TO MAINTAIN 85%. PT RECOOPERATED QIUICKLY BACK TO ABOVE 90% AND IS NOW AT 6L RESTING. PT HAS A CATHETER FLOWING WITH GRAVITY. CALL LIGHT IN REACH, BED IN LOWEST POSITON.
--- NOTE | 2021-04-16 08:30 | NUR ---
ASSMEED CARE FROM NOC SHIFT. PATIENT RESTING/SLEEPING IN BED; AWAKES EASILY. DENIES NO PAIN OR SOB. UP TO CHAIR FOR BREAKFAST WITH DECREASE SATS NOTED ON ON 10L/NC WITH ACTIVITY, TITRATE 02 TO KEEP SATS >90%; TOLERATED TRANSFER WITH 1 PERSON ASSIST. NO OTHER ACUTE CHANGES NOTED. CONTINUE TO MONITOR AND TX PRN.
--- NOTE | 2021-04-16 10:18 | NUR ---
STATUS CHANGE TO MEDICAL NO TELE. TOLERATING SITTING UP IN CHAIR. TITRATED 02 6L/NC WITH SATS 91%.
--- NOTE | 2021-04-16 10:34 | NUR ---
REPORT CALLED TO ELIE WOODS RN. WILL TRANSFER TO ROOM 363 VIA .
--- NOTE | 2021-04-16 16:23 | NUR ---
SHIFT SUMMARY: PT ALERT AND ORIENTED BUT CAN BE A BIT DELAYED AT TIMES. UNABLE TO REPORT BASELINE FOR THINGS LIKE ACTIVITY. ANSWERS LOC X4. DAUGHTER BRYANT CALLED AND SAID SHE SEEMED OFF SO REQUESTED MD COME ASSESS. HE DID, NO FURTHER INSTRUCTIONS RECEIVED. EKG DONE AND TSH DONE FOR AIDE CARDIA. PT ON 15L O2 NC SATTING 88-93% AT REST. EVEN WHEN SATTING AT 83% THERE IS NO APPARENT DISTRESS. PT DENIES SOB.
--- NOTE | 2021-04-17 06:06 | NUR ---
END OF SHIFT SUMMARY: Pt desats to 69% with activity on 15LHFNC. Pt put on NRB to get her sats back up. pt comes back up to 90% in 5 minutes. Pt SB at 44BPM when she is in deep sleep. HR up to 90BPM when pt is awake. Reports no pain at this time. A&Ox4. Pt resting at this time. Call light within reach.
[2021-04-17 14:22] LABS: BASOPHILS ABSOLUTE AUTO 0.02 K/mm3 (0.00-0.23); BASOPHILS PERCENT AUTO 0 % (0-2); EOSINOPHILS ABSOLUTE AUTO 0.03 K/mm3 (0.00-0.68); EOSINOPHILS PERCENT AUTO 0 % (0-6); Hematocrit 37.6 % (33.0-51.0); Hemoglobin 11.9 g/dL (11.5-16.0); IMMATURE GRAN ABSOLUTE AUTO 0.21 K/mm3 (0.00-0.10); IMMATURE GRAN PERCENT AUTO 1 % (0-1); LYMPHOCYTES ABSOLUTE AUTO 0.68 K/mm3 (0.84-5.20); LYMPHOCYTES PERCENT AUTO 5 % (21-46); MONOCYTES ABSOLUTE AUTO 0.44 K/mm3 (0.16-1.47); MONOCYTES PERCENT AUTO 3 % (4-13); Mean Corpuscular HGB 28.7 pg (26.0-34.0); Mean Corpuscular HGB Conc 31.6 g/dL (31.5-36.5); Mean Corpuscular Volume 91 fL (80-100); NEUTROPHILS ABSOLUTE AUTO 13.52 K/mm3 (1.96-9.15); NEUTROPHILS PERCENT AUTO 91 % (41-73); Platelet Count 147 K/mm3 (150-400); RDW Coefficient Variation 14.5 % (11.7-14.2); RDW Standard Deviation 46.9 fL (35.1-46.3); Red Blood Cell Count 4.14 M/mm3 (3.80-5.20)
[2021-04-17 14:49] LABS: Alanine Aminotransfer (ALT/SGP 23 U/L (12-78); Albumin, Blood 2.3 g/dL (3.4-5.0); Albumin/Globulin Ratio 0.6 (0.8-1.8); Alk Phos 67 U/L (50-136); Anion Gap 6 mmol/L (6-16); Aspartate Aminotrans (AST/SGOT 11 U/L (12-37); Bilirubin, Total 0.6 mg/dL (0.1-1.0); Blood Urea Nitrogen 24 mg/dL (8-24); CO2, Blood 30 mmol/L (21-32); Calcium, Blood 9.3 mg/dL (8.5-10.1); Chloride, Blood 102 mmol/L (98-108); Creatinine, Blood 0.89 mg/dL (0.40-1.00); Globulin, Blood 3.8 g/dL (2.2-4.0); Glomerular Filtration Rate >60 (60-); Glucose, Blood 262 mg/dL (70-99); Lactate Dehydrogenase (Ld),Bld 283 U/L (100-240); Potassium, Blood 5.6 mmol/L (3.5-5.5); Sodium, Blood 138 mmol/L (136-145); Total Protein, Blood 6.1 g/dL (6.4-8.2)
--- NOTE | 2021-04-17 17:18 | NUR ---
SHIFT SUMMARY PT ALERT AND ORIENTED, ON 14L HFNC. REQUIRES NRB ON15 WITH ACTIVITY. ZOSYN AND VANCOMYCIN STARTED TODAY FOR PNEUMONIA.
--- NOTE | 2021-04-17 18:57 | NUR ---
PT EXPERIENCING CONSTIPATION. STOOL SITTING IN RECTUM PT REQUESTING RELIEF. WILL ASK NOC NURSE TO ADDRESS.
[2021-04-18 14:28] LABS: BASOPHILS ABSOLUTE AUTO 0.03 K/mm3 (0.00-0.23); BASOPHILS PERCENT AUTO 0 % (0-2); EOSINOPHILS ABSOLUTE AUTO 0.11 K/mm3 (0.00-0.68); EOSINOPHILS PERCENT AUTO 1 % (0-6); Hematocrit 38.1 % (33.0-51.0); Hemoglobin 12.2 g/dL (11.5-16.0); IMMATURE GRAN ABSOLUTE AUTO 0.21 K/mm3 (0.00-0.10); IMMATURE GRAN PERCENT AUTO 1 % (0-1); LYMPHOCYTES ABSOLUTE AUTO 0.84 K/mm3 (0.84-5.20); LYMPHOCYTES PERCENT AUTO 5 % (21-46); MONOCYTES ABSOLUTE AUTO 0.73 K/mm3 (0.16-1.47); MONOCYTES PERCENT AUTO 4 % (4-13); Mean Corpuscular HGB 29.1 pg (26.0-34.0); Mean Corpuscular Volume 91 fL (80-100); Mean Platelet Volume 9.7 fL (9.1-12.4); NEUTROPHILS ABSOLUTE AUTO 16.38 K/mm3 (1.96-9.15); NEUTROPHILS PERCENT AUTO 90 % (41-73); Platelet Count 144 K/mm3 (150-400); RDW Coefficient Variation 14.7 % (11.7-14.2); RDW Standard Deviation 47.5 fL (35.1-46.3); Red Blood Cell Count 4.19 M/mm3 (3.80-5.20)
[2021-04-18 14:43] LABS: Alanine Aminotransfer (ALT/SGP 22 U/L (12-78); Albumin, Blood 2.4 g/dL (3.4-5.0); Albumin/Globulin Ratio 0.6 (0.8-1.8); Alk Phos 59 U/L (50-136); Anion Gap 0 mmol/L (6-16); Aspartate Aminotrans (AST/SGOT 12 U/L (12-37); Bilirubin, Total 0.7 mg/dL (0.1-1.0); Blood Urea Nitrogen 23 mg/dL (8-24); Bun/Creatinine Ratio 28.3 (12.0-20.0); CO2, Blood 34 mmol/L (21-32); Calcium, Blood 9.3 mg/dL (8.5-10.1); Chloride, Blood 105 mmol/L (98-108); Creatinine, Blood 0.81 mg/dL (0.40-1.00); Globulin, Blood 3.7 g/dL (2.2-4.0); Glomerular Filtration Rate >60 (60-); Glucose, Blood 113 mg/dL (70-99); Potassium, Blood 5.5 mmol/L (3.5-5.5); Sodium, Blood 139 mmol/L (136-145); Total Protein, Blood 6.1 g/dL (6.4-8.2)
--- NOTE | 2021-04-18 14:51 | NUR ---
pt's O2 needs are still too high to discharge. -kjb ([email or web address], 2:51 PM)
--- NOTE | 2021-04-18 18:26 | NUR ---
SHIFT SUMMARY: REMAINS ON 15 L/MIN HIGH FLOW NC/NRB, SATS 89-95% AT REST, BUT DESATS TO LOW 80'S WITH ANY ACTIVITY. SATS ARE BETTER WHEN ON NRB SHE IS MORE OF A MOUTH BREATHER. BISACODYL SUPPOSITORY GIVEN, NO RESULT YET. WEARING ATTENDS, UNSURE IF SHE IS CONTINENT. APPETITE IS POOR, DESATS WHILE EATING. DENIES PAIN, BUT IS UNCOMFORTABLE D/T CONSTIPATION.
[2021-04-19 04:08] LABS: BASOPHILS ABSOLUTE AUTO 0.02 K/mm3 (0.00-0.23); BASOPHILS PERCENT AUTO 0 % (0-2); EOSINOPHILS ABSOLUTE AUTO 0.04 K/mm3 (0.00-0.68); EOSINOPHILS PERCENT AUTO 0 % (0-6); Hematocrit 35.5 % (33.0-51.0); Hemoglobin 11.3 g/dL (11.5-16.0); IMMATURE GRAN ABSOLUTE AUTO 0.12 K/mm3 (0.00-0.10); IMMATURE GRAN PERCENT AUTO 1 % (0-1); LYMPHOCYTES ABSOLUTE AUTO 0.73 K/mm3 (0.84-5.20); LYMPHOCYTES PERCENT AUTO 5 % (21-46); MONOCYTES PERCENT AUTO 4 % (4-13); Mean Corpuscular HGB 28.8 pg (26.0-34.0); Mean Corpuscular HGB Conc 31.8 g/dL (31.5-36.5); Mean Corpuscular Volume 90 fL (80-100); Mean Platelet Volume 9.9 fL (9.1-12.4); NEUTROPHILS ABSOLUTE AUTO 13.51 K/mm3 (1.96-9.15); NEUTROPHILS PERCENT AUTO 90 % (41-73); Platelet Count 126 K/mm3 (150-400); RDW Coefficient Variation 14.8 % (11.7-14.2); RDW Standard Deviation 48.5 fL (35.1-46.3); Red Blood Cell Count 3.93 M/mm3 (3.80-5.20); White Blood Cell Count 15.02 K/mm3 (4.00-11.30)
[2021-04-19 04:25] LABS: Vancomycin, Trough 16.7 ug/mL (5.0-10.0)
[2021-04-19 04:45] LABS: Alanine Aminotransfer (ALT/SGP 18 U/L (12-78); Albumin, Blood 2.1 g/dL (3.4-5.0); Albumin/Globulin Ratio 0.6 (0.8-1.8); Alk Phos 55 U/L (50-136); Anion Gap 5 mmol/L (6-16); Aspartate Aminotrans (AST/SGOT 12 U/L (12-37); Bilirubin, Total 0.8 mg/dL (0.1-1.0); Blood Urea Nitrogen 20 mg/dL (8-24); Bun/Creatinine Ratio 26.6 (12.0-20.0); CO2, Blood 31 mmol/L (21-32); Calcium, Blood 8.9 mg/dL (8.5-10.1); Chloride, Blood 105 mmol/L (98-108); Creatinine, Blood 0.75 mg/dL (0.40-1.00); Globulin, Blood 3.4 g/dL (2.2-4.0); Glomerular Filtration Rate >60 (60-); Glucose, Blood 65 mg/dL (70-99); Potassium, Blood 4.4 mmol/L (3.5-5.5); Sodium, Blood 141 mmol/L (136-145); Total Protein, Blood 5.5 g/dL (6.4-8.2)
--- NOTE | 2021-04-19 06:39 | NUR ---
END OF SHIFT SUMMARY: Pt is retaining urine tonight. bladder scan performed, 680 in bladder. Pt desats to 80s with turning and repositioning. Order for olivia obtained, olivia placed. draining well to gravity. Pt tolerated procedure well. pt had small BM fter bowel meds were given. Pt still complaining of feeling constipated. offered to give pt enema. Pt asked to wait until she wakes up. Pt is resting at this time. call olight within reach, bed in lowest position.
--- NOTE | 2021-04-19 19:50 | NUR ---
SHIFT SUMMARY: O2 TITRATED DOWN TO 13 L/MIN OXYMIZER, SATS 90-94% AT REST, DESATS TO 84-86% WITH ACTIVITY. GOT INTO CHAIR FOR LUNCH. MOVING AROUND A BIT STIMULATED HER BOWELS; HAD EXTRA LARGE BM AFTER ENEMA THIS AFTERNOON, NOW FEELS MUCH BETTER, WAS ABLE TO EAT A BIT OF DINNER. DENIES PAIN. CORONA DRAINING ADEQUATE URINE, CLEAR YELLOW. DISCUSSED GOALS WITH PT: INCREASE MOVEMENT, IN CHAIR FOR ALL MEALS, USE OF IS AND FLUTTER; SHE VERBALIZED AGREEMENT. GAVE TELEPHONE UPDATE TO PT'S DAUGHTER THIS EVENING.
[2021-04-20 03:02] LABS: BASOPHILS ABSOLUTE AUTO 0.01 K/mm3 (0.00-0.23); BASOPHILS PERCENT AUTO 0 % (0-2); EOSINOPHILS ABSOLUTE AUTO 0.03 K/mm3 (0.00-0.68); EOSINOPHILS PERCENT AUTO 0 % (0-6); Hematocrit 34.9 % (33.0-51.0); IMMATURE GRAN ABSOLUTE AUTO 0.06 K/mm3 (0.00-0.10); IMMATURE GRAN PERCENT AUTO 1 % (0-1); LYMPHOCYTES ABSOLUTE AUTO 0.46 K/mm3 (0.84-5.20); LYMPHOCYTES PERCENT AUTO 4 % (21-46); MONOCYTES ABSOLUTE AUTO 0.36 K/mm3 (0.16-1.47); MONOCYTES PERCENT AUTO 3 % (4-13); Mean Corpuscular HGB 28.9 pg (26.0-34.0); Mean Corpuscular HGB Conc 31.5 g/dL (31.5-36.5); Mean Corpuscular Volume 92 fL (80-100); Mean Platelet Volume 9.4 fL (9.1-12.4); NEUTROPHILS PERCENT AUTO 91 % (41-73); Platelet Count 96 K/mm3 (150-400); RDW Coefficient Variation 14.5 % (11.7-14.2); RDW Standard Deviation 47.9 fL (35.1-46.3); Red Blood Cell Count 3.81 M/mm3 (3.80-5.20); White Blood Cell Count 10.72 K/mm3 (4.00-11.30)
[2021-04-20 03:16] LABS: Vancomycin, Trough 17.3 ug/mL (5.0-10.0)
[2021-04-20 03:25] LABS: Alanine Aminotransfer (ALT/SGP 16 U/L (12-78); Albumin, Blood 2.1 g/dL (3.4-5.0); Albumin/Globulin Ratio 0.6 (0.8-1.8); Alk Phos 55 U/L (50-136); Anion Gap 1 mmol/L (6-16); Aspartate Aminotrans (AST/SGOT 11 U/L (12-37); Bilirubin, Total 0.8 mg/dL (0.1-1.0); Blood Urea Nitrogen 18 mg/dL (8-24); CO2, Blood 33 mmol/L (21-32); Calcium, Blood 8.6 mg/dL (8.5-10.1); Chloride, Blood 105 mmol/L (98-108); Creatinine, Blood 0.78 mg/dL (0.40-1.00); Globulin, Blood 3.6 g/dL (2.2-4.0); Glomerular Filtration Rate >60 (60-); Glucose, Blood 163 mg/dL (70-99); Potassium, Blood 4.7 mmol/L (3.5-5.5); Sodium, Blood 139 mmol/L (136-145); Total Protein, Blood 5.7 g/dL (6.4-8.2)
--- NOTE | 2021-04-20 06:20 | NUR ---
SHIFT SUMMARY PT HAD AN UNEVENTFUL NIGHT. SLEPT WELL. PT HAD LARGE BM ON PREVIOUS DAY SHIFT AND STATED THAT SHE HAS BEEN FEELING MUCH BETTER SINCE. PT TITRATED DOWN TO 8 L VIA OXYMIZER FROM 15 L. O2 SATS IN THE MID TO HIGH 90'S. PT DOES GET BRADYCARDIC IN THE 40'S WHILE SLEEPING. THIS IS NOT NEW. CORONA CATH PATENT AND DRAINING. POWERGLIDE DRESSING CHANGED THIS AM. VITAL SIGNS STABLE. WILL CONTINUE TO MONITOR.
--- NOTE | 2021-04-20 18:11 | NUR ---
Shift Summary, The patient is A/OX4 to person, place, time and event. The patient is bed bound but able to make possitional changes. The patient is on 10 lpm highflow nc and SPO2>95%. The patient was on 8lpm but when working with PT the patient desaturated and the o2 was increased from 8 to 10. The patient has been educated on using the insentive spirometer and exercising while lying in bed. We agreed on a plan to increase using the insentive spirometer and she stated that she would try to increase exercise as tollerated. She has increased both this shift. . The patient did c/o bm issues and meds per EMAR were given. The patient has not had a bm this shift. The patient is currently lying in bed watching tv.
--- NOTE | 2021-04-21 06:13 | NUR ---
NO SIGNIFICANT EVENTS OR ACUTE CHANGES IN CONDITION OVERNIGHT.
--- NOTE | 2021-04-21 11:38 | NUR ---
per chart review with Dr. Chery, do d/c plan at this time. (, 11:37 AM)
[2021-04-21 13:45] LABS: BASOPHILS ABSOLUTE AUTO 0.01 K/mm3 (0.00-0.23); BASOPHILS PERCENT AUTO 0 % (0-2); EOSINOPHILS ABSOLUTE AUTO 0.21 K/mm3 (0.00-0.68); EOSINOPHILS PERCENT AUTO 2 % (0-6); Hematocrit 34.1 % (33.0-51.0); IMMATURE GRAN ABSOLUTE AUTO 0.08 K/mm3 (0.00-0.10); IMMATURE GRAN PERCENT AUTO 1 % (0-1); LYMPHOCYTES ABSOLUTE AUTO 0.63 K/mm3 (0.84-5.20); LYMPHOCYTES PERCENT AUTO 5 % (21-46); MONOCYTES ABSOLUTE AUTO 0.54 K/mm3 (0.16-1.47); MONOCYTES PERCENT AUTO 4 % (4-13); Mean Corpuscular HGB 29.3 pg (26.0-34.0); Mean Corpuscular HGB Conc 32.3 g/dL (31.5-36.5); Mean Corpuscular Volume 91 fL (80-100); Mean Platelet Volume 9.6 fL (9.1-12.4); NEUTROPHILS ABSOLUTE AUTO 10.99 K/mm3 (1.96-9.15); NEUTROPHILS PERCENT AUTO 88 % (41-73); Platelet Count 95 K/mm3 (150-400); RDW Coefficient Variation 14.3 % (11.7-14.2); RDW Standard Deviation 47.3 fL (35.1-46.3); Red Blood Cell Count 3.75 M/mm3 (3.80-5.20); White Blood Cell Count 12.46 K/mm3 (4.00-11.30)
[2021-04-21 14:39] LABS: Alanine Aminotransfer (ALT/SGP 18 U/L (12-78); Albumin/Globulin Ratio 0.6 (0.8-1.8); Alk Phos 52 U/L (50-136); Anion Gap 5 mmol/L (6-16); Aspartate Aminotrans (AST/SGOT 12 U/L (12-37); Bilirubin, Total 0.7 mg/dL (0.1-1.0); Blood Urea Nitrogen 19 mg/dL (8-24); Bun/Creatinine Ratio 27.1 (12.0-20.0); CO2, Blood 29 mmol/L (21-32); Calcium, Blood 8.3 mg/dL (8.5-10.1); Chloride, Blood 105 mmol/L (98-108); Globulin, Blood 3.3 g/dL (2.2-4.0); Glomerular Filtration Rate >60 (60-); Glucose, Blood 224 mg/dL (70-99); Potassium, Blood 3.9 mmol/L (3.5-5.5); Sodium, Blood 139 mmol/L (136-145); Total Protein, Blood 5.3 g/dL (6.4-8.2)
--- NOTE | 2021-04-21 19:25 | NUR ---
Shift Summary, The patient is A/OX4 to person, place, time and event. The patient is pleasent and cooperative with care. The patient has been a 1prns assist to [facility] [place] and her chair for dinner. She is on high flow NC 10lpm spo2>95%. The patient denies any SOB or chest pain. Her spo2 decreases with exersion but it recovers with time. The patient stated that she is using the insentive spirometer and performing exercises per PT while in bed. The patient has been eating well every meal and has asked for food in between meals. She had a bowel movement which was a goal this nurse and the patient set together this am. Currently the patient is sitting in her chair watching TV.
[2021-04-22 03:39] LABS: BASOPHILS PERCENT AUTO 0 % (0-2); EOSINOPHILS ABSOLUTE AUTO 0.05 K/mm3 (0.00-0.68); EOSINOPHILS PERCENT AUTO 1 % (0-6); Hematocrit 34.3 % (33.0-51.0); Hemoglobin 11.1 g/dL (11.5-16.0); IMMATURE GRAN ABSOLUTE AUTO 0.05 K/mm3 (0.00-0.10); IMMATURE GRAN PERCENT AUTO 1 % (0-1); LYMPHOCYTES ABSOLUTE AUTO 0.62 K/mm3 (0.84-5.20); LYMPHOCYTES PERCENT AUTO 7 % (21-46); MONOCYTES ABSOLUTE AUTO 0.43 K/mm3 (0.16-1.47); MONOCYTES PERCENT AUTO 5 % (4-13); Mean Corpuscular HGB 29.1 pg (26.0-34.0); Mean Corpuscular HGB Conc 32.4 g/dL (31.5-36.5); Mean Corpuscular Volume 90 fL (80-100); Mean Platelet Volume 9.3 fL (9.1-12.4); NEUTROPHILS ABSOLUTE AUTO 7.23 K/mm3 (1.96-9.15); NEUTROPHILS PERCENT AUTO 86 % (41-73); Platelet Count 94 K/mm3 (150-400); RDW Coefficient Variation 14.5 % (11.7-14.2); RDW Standard Deviation 47.2 fL (35.1-46.3); Red Blood Cell Count 3.81 M/mm3 (3.80-5.20); White Blood Cell Count 8.38 K/mm3 (4.00-11.30)
[2021-04-22 03:54] LABS: Vancomycin, Trough 14.1 ug/mL (5.0-10.0)
[2021-04-22 04:02] LABS: Alanine Aminotransfer (ALT/SGP 18 U/L (12-78); Albumin, Blood 2.1 g/dL (3.4-5.0); Albumin/Globulin Ratio 0.6 (0.8-1.8); Alk Phos 57 U/L (50-136); Anion Gap 6 mmol/L (6-16); Aspartate Aminotrans (AST/SGOT 12 U/L (12-37); Bilirubin, Total 0.6 mg/dL (0.1-1.0); Blood Urea Nitrogen 18 mg/dL (8-24); Bun/Creatinine Ratio 28.5 (12.0-20.0); CO2, Blood 28 mmol/L (21-32); Calcium, Blood 8.7 mg/dL (8.5-10.1); Chloride, Blood 107 mmol/L (98-108); Creatinine, Blood 0.63 mg/dL (0.40-1.00); Globulin, Blood 3.6 g/dL (2.2-4.0); Glomerular Filtration Rate >60 (60-); Glucose, Blood 169 mg/dL (70-99); Potassium, Blood 4.2 mmol/L (3.5-5.5); Sodium, Blood 141 mmol/L (136-145); Total Protein, Blood 5.7 g/dL (6.4-8.2)
--- NOTE | 2021-04-22 17:43 | NUR ---
SHIFT SUMMARY PATIENT IS ALERT AND ORIENTED, AND COOPERATIVE WITH CARE. ON 6LPM OXYMIZER SATTING > 90 THIS SHIFT. PATIENT DOES DESAT WITH EXERTION. PATIENT HAS VANCOMYCIN AND ZOSYN ALTERNATING AT THIS TIME. THE PATIENT MAY POSSIBLY DISCHARGE TO A SNF FOR STRENGTHING WHEN OXYGEN NEEDS DECREASE. VITAL SIGNS STABLE AT THIS TIME. WILL CONTINUE TO MONITOR PATIENT UNTIL REPORT IS GIVEN TO ONCOMING NURSE.
--- NOTE | 2021-04-23 06:33 | NUR ---
PATIENT TITIRATED FROM 7LITERS TO 6LITERRS VIA OYXMIZER. O2 SAT IS BETWEEN 91%-93% OVERNIGHT. NO OTHER ACUTE CHANGES IN CONDITION NOTED OVERNIGHT.
--- NOTE | 2021-04-23 09:27 | NUR ---
PATIENT UPDATE PATIENT'S CBG 53 THIS AM. CONTINUING TO MONITOR LEVELS. PATIENT WAS PUT ON BIPAP THIS AM. PATIENT WAS SATTING IN THE 70'S. PATIENT IS NOW SATTING AT 100% DOCTOR WAS NOTIFIED.
[2021-04-23 13:38] LABS: BASOPHILS ABSOLUTE AUTO 0.02 K/mm3 (0.00-0.23); BASOPHILS PERCENT AUTO 0 % (0-2); EOSINOPHILS ABSOLUTE AUTO 0.15 K/mm3 (0.00-0.68); EOSINOPHILS PERCENT AUTO 1 % (0-6); Hematocrit 32.9 % (33.0-51.0); Hemoglobin 10.6 g/dL (11.5-16.0); IMMATURE GRAN ABSOLUTE AUTO 0.09 K/mm3 (0.00-0.10); IMMATURE GRAN PERCENT AUTO 1 % (0-1); LYMPHOCYTES ABSOLUTE AUTO 0.85 K/mm3 (0.84-5.20); LYMPHOCYTES PERCENT AUTO 6 % (21-46); MONOCYTES PERCENT AUTO 7 % (4-13); Mean Corpuscular HGB 29.6 pg (26.0-34.0); Mean Corpuscular HGB Conc 32.2 g/dL (31.5-36.5); Mean Corpuscular Volume 92 fL (80-100); NEUTROPHILS ABSOLUTE AUTO 11.24 K/mm3 (1.96-9.15); NEUTROPHILS PERCENT AUTO 85 % (41-73); Platelet Count 84 K/mm3 (150-400); RDW Coefficient Variation 14.9 % (11.7-14.2); RDW Standard Deviation 49.3 fL (35.1-46.3); Red Blood Cell Count 3.58 M/mm3 (3.80-5.20); White Blood Cell Count 13.25 K/mm3 (4.00-11.30)
[2021-04-23 13:54] LABS: Alanine Aminotransfer (ALT/SGP 18 U/L (12-78); Albumin/Globulin Ratio 0.6 (0.8-1.8); Alk Phos 53 U/L (50-136); Anion Gap 6 mmol/L (6-16); Aspartate Aminotrans (AST/SGOT 13 U/L (12-37); Bilirubin, Total 0.6 mg/dL (0.1-1.0); Blood Urea Nitrogen 14 mg/dL (8-24); Bun/Creatinine Ratio 20.8 (12.0-20.0); CO2, Blood 28 mmol/L (21-32); Calcium, Blood 8.4 mg/dL (8.5-10.1); Chloride, Blood 107 mmol/L (98-108); Creatinine, Blood 0.67 mg/dL (0.40-1.00); Globulin, Blood 3.2 g/dL (2.2-4.0); Glomerular Filtration Rate >60 (60-); Glucose, Blood 182 mg/dL (70-99); Potassium, Blood 3.9 mmol/L (3.5-5.5); Sodium, Blood 141 mmol/L (136-145); Total Protein, Blood 5.2 g/dL (6.4-8.2)
--- NOTE | 2021-04-23 18:26 | NUR ---
SHIFT SUMMARY PATIENT ALERT AND ORIENTED, AND COOPERATIVE WITH CARE. PATIENT HAS BEEN RECEIVING ZOSYN AND VANCOMYCIN THIS SHIFT. PT RECEIVED COVERAGE FOR BLOOD SUGAR THIS PM. PATIENT IS ON 10LPM VIA OXYMIZER SATTING AT 98%
--- NOTE | 2021-04-24 05:33 | NUR ---
COLLECTION TECHNICIAN SUMMARY PT A/O X4, SLEPT WELL TONIGHT. DENIED PAIN. O2 TITRATED FROM 10L TO 8L VIA OXYMIZER OVERNIGHT. PT SATTING IN THE MID 90'S. LUNG SOUNDS DIM THROUGHOUT. CORONA PATENT AND DRAINING TO GRAVITY. BEDREST OVERNIGHT. MEDICATED FOR HTN THIS AM WITH IV HYDRALAZINE PER EMAR. CALL LIGHT WITHIN REACH, WILL CONTINUE TO MONITOR.
[2021-04-24 05:53] LABS: BASOPHILS ABSOLUTE AUTO 0.01 K/mm3 (0.00-0.23); BASOPHILS PERCENT AUTO 0 % (0-2); EOSINOPHILS ABSOLUTE AUTO 0.02 K/mm3 (0.00-0.68); EOSINOPHILS PERCENT AUTO 0 % (0-6); Hematocrit 32.9 % (33.0-51.0); Hemoglobin 10.6 g/dL (11.5-16.0); IMMATURE GRAN ABSOLUTE AUTO 0.05 K/mm3 (0.00-0.10); IMMATURE GRAN PERCENT AUTO 1 % (0-1); LYMPHOCYTES ABSOLUTE AUTO 0.81 K/mm3 (0.84-5.20); LYMPHOCYTES PERCENT AUTO 9 % (21-46); MONOCYTES ABSOLUTE AUTO 0.45 K/mm3 (0.16-1.47); MONOCYTES PERCENT AUTO 5 % (4-13); Mean Corpuscular HGB 28.8 pg (26.0-34.0); Mean Corpuscular HGB Conc 32.2 g/dL (31.5-36.5); Mean Corpuscular Volume 89 fL (80-100); Mean Platelet Volume 10.3 fL (9.1-12.4); NEUTROPHILS ABSOLUTE AUTO 7.28 K/mm3 (1.96-9.15); NEUTROPHILS PERCENT AUTO 85 % (41-73); Platelet Count 94 K/mm3 (150-400); RDW Coefficient Variation 14.6 % (11.7-14.2); RDW Standard Deviation 47.6 fL (35.1-46.3); Red Blood Cell Count 3.68 M/mm3 (3.80-5.20); White Blood Cell Count 8.62 K/mm3 (4.00-11.30)
[2021-04-24 06:08] LABS: Anion Gap 5 mmol/L (6-16); Blood Urea Nitrogen 11 mg/dL (8-24); Bun/Creatinine Ratio 21.8 (12.0-20.0); CO2, Blood 27 mmol/L (21-32); Chloride, Blood 109 mmol/L (98-108); Creatinine, Blood 0.51 mg/dL (0.40-1.00); Glomerular Filtration Rate >60 (60-); Glucose, Blood 211 mg/dL (70-99); Potassium, Blood 3.9 mmol/L (3.5-5.5); Sodium, Blood 141 mmol/L (136-145)
--- NOTE | 2021-04-24 13:45 | NUR ---
per chart review with Dr. Smith, no plan for d/c at this time. But at discharge, pt will need sample of xarelto samples. -[email or web address]
--- NOTE | 2021-04-24 18:37 | NUR ---
SHIFT SUMMARY PT IS AOX4. PT IS ON 9 L 02 VIA OXYMIZER WITH SATS GREATER THAN 95%. PT DENIES N/V, PAIN. PT DESATS TO 78% WITH MOVEMENT AND REQUIRES 15 L O2 VIA OXYMIZER FOR TRANSFERS TO CHAIR OR BCC. PT APPETITE IS GOOD. ENHANCED ISOLATION PRECAUTIONS MAINTAINED T/O SHIFT. PT IS ONE ASSIST FOR TRANSFERS. PT IS IN BED, CALL LIGHT IN REACH, LOW POSITION.
[2021-04-25 03:21] LABS: BASOPHILS ABSOLUTE AUTO 0.01 K/mm3 (0.00-0.23); BASOPHILS PERCENT AUTO 0 % (0-2); EOSINOPHILS ABSOLUTE AUTO 0.04 K/mm3 (0.00-0.68); EOSINOPHILS PERCENT AUTO 1 % (0-6); Hematocrit 32.3 % (33.0-51.0); Hemoglobin 10.4 g/dL (11.5-16.0); IMMATURE GRAN ABSOLUTE AUTO 0.05 K/mm3 (0.00-0.10); IMMATURE GRAN PERCENT AUTO 1 % (0-1); LYMPHOCYTES ABSOLUTE AUTO 0.59 K/mm3 (0.84-5.20); LYMPHOCYTES PERCENT AUTO 7 % (21-46); MONOCYTES ABSOLUTE AUTO 0.38 K/mm3 (0.16-1.47); MONOCYTES PERCENT AUTO 4 % (4-13); Mean Corpuscular HGB 29.1 pg (26.0-34.0); Mean Corpuscular HGB Conc 32.2 g/dL (31.5-36.5); Mean Corpuscular Volume 90 fL (80-100); Mean Platelet Volume 9.8 fL (9.1-12.4); NEUTROPHILS ABSOLUTE AUTO 7.53 K/mm3 (1.96-9.15); NEUTROPHILS PERCENT AUTO 88 % (41-73); Platelet Count 94 K/mm3 (150-400); RDW Coefficient Variation 14.7 % (11.7-14.2); RDW Standard Deviation 48.5 fL (35.1-46.3); Red Blood Cell Count 3.58 M/mm3 (3.80-5.20)
[2021-04-25 03:38] LABS: Anion Gap 5 mmol/L (6-16); Blood Urea Nitrogen 13 mg/dL (8-24); Bun/Creatinine Ratio 22.4 (12.0-20.0); CO2, Blood 28 mmol/L (21-32); Calcium, Blood 8.5 mg/dL (8.5-10.1); Chloride, Blood 108 mmol/L (98-108); Creatinine, Blood 0.58 mg/dL (0.40-1.00); Glomerular Filtration Rate >60 (60-); Glucose, Blood 220 mg/dL (70-99); Potassium, Blood 4.1 mmol/L (3.5-5.5); Sodium, Blood 141 mmol/L (136-145); Vancomycin, Trough 12.6 ug/mL (5.0-10.0)
--- NOTE | 2021-04-25 05:50 | NUR ---
TRANSMISSION SUPERVISOR SUMMARY ADMITTED FOR HYPOXIC RESPIRATORY FAILURE SECONDARY TO COVID19. PT IS FULL CODE. PLAN FOR D/C TO SNF FOR REHAB. PT CURRENTLY ON 9L BY OXIMIZER AND SATTING AT 94%. PT HAD EPISODE OF DESATURATION WHEN GETTING UP FROM THE CHAIR TO THE BED - INCREASED OXYGEN TO 15L BY OXIMIZER AND PT TOOK SOME TIME TO RECOVER; DECREASED O2 BACK TO 9L. PT MEDICATED FOR COUGH X2. ORDER OBTAINED FOR APRESOLINE DUE TO BP OF 207/88 THIS AM - MEDICATED X1 WITH IMPROVEMENT TO 181/81. IV ABX INFUSING. NO OTHER CONCERNS THIS SHIFT.
--- NOTE | 2021-04-25 09:20 | NUR ---
per chart review with Dr. Smith, pt was switched from nasal cannula to oxymizer on 04/23/21. Pt is past the infectious stage of COVID. Pt's O2 needs to still come down more, no d/c plan at this time. -larry ([email or web address], 9:20 AM)
[2021-04-26 03:10] LABS: BASOPHILS ABSOLUTE AUTO 0.01 K/mm3 (0.00-0.23); BASOPHILS PERCENT AUTO 0 % (0-2); EOSINOPHILS ABSOLUTE AUTO 0.05 K/mm3 (0.00-0.68); EOSINOPHILS PERCENT AUTO 1 % (0-6); Hematocrit 33.4 % (33.0-51.0); Hemoglobin 10.6 g/dL (11.5-16.0); IMMATURE GRAN ABSOLUTE AUTO 0.08 K/mm3 (0.00-0.10); IMMATURE GRAN PERCENT AUTO 1 % (0-1); LYMPHOCYTES ABSOLUTE AUTO 0.59 K/mm3 (0.84-5.20); LYMPHOCYTES PERCENT AUTO 7 % (21-46); MONOCYTES ABSOLUTE AUTO 0.44 K/mm3 (0.16-1.47); MONOCYTES PERCENT AUTO 5 % (4-13); Mean Corpuscular HGB 28.5 pg (26.0-34.0); Mean Corpuscular HGB Conc 31.7 g/dL (31.5-36.5); Mean Corpuscular Volume 90 fL (80-100); NEUTROPHILS ABSOLUTE AUTO 7.53 K/mm3 (1.96-9.15); NEUTROPHILS PERCENT AUTO 87 % (41-73); Platelet Count 113 K/mm3 (150-400); RDW Coefficient Variation 14.9 % (11.7-14.2); RDW Standard Deviation 49.1 fL (35.1-46.3); Red Blood Cell Count 3.72 M/mm3 (3.80-5.20)
[2021-04-26 03:32] LABS: Anion Gap 5 mmol/L (6-16); Blood Urea Nitrogen 15 mg/dL (8-24); Bun/Creatinine Ratio 25.9 (12.0-20.0); CO2, Blood 27 mmol/L (21-32); Calcium, Blood 8.6 mg/dL (8.5-10.1); Chloride, Blood 109 mmol/L (98-108); Creatinine, Blood 0.58 mg/dL (0.40-1.00); Glomerular Filtration Rate >60 (60-); Glucose, Blood 222 mg/dL (70-99); Potassium, Blood 4.1 mmol/L (3.5-5.5); Sodium, Blood 141 mmol/L (136-145); Vancomycin, Trough 17.2 ug/mL (5.0-10.0)
--- NOTE | 2021-04-26 03:40 | NUR ---
RT CONSULTED REGARDING PT SATURATING AT 97% CONSISTENTLY ON 8L BY HUMIDIFIED HIGH FLOW CANNULA. RT KIERAN RECOMMENDED PT BE TITRATED DOWN TO 5L. PT STAYING AT 93 TO 95% WHILE RESTING. WILL CONTINUE TO MONITOR OXYGEN SATURATION.
--- NOTE | 2021-04-26 05:21 | NUR ---
SENIOR PROJECT COORDINATOR SUMMARY ADMITTED FOR ACUTE HYPOXIC RESPIRATORY FAILURE DUE TO COVID. PT IS FULL CODE. PT TITRATED DOWN FROM 10L HIGH FLOW TO 5L BY HIGH FLOW CANNULA - HAS BEEN SATTING BETWEEN 92 AND 96% AND DENIES ANY FEELINGS OF SOB. PT MEDICATED X1 WITH APRESOLINE FOR BP OF 165 SYSTOLIC WITH IMPROVEMENT TO 158 SYSTOLIC. PT HAS NO COMPLAINTS OF HEADACHE OR VISION CHANGES. PT CURRENTLY RECEIVING IV ABX THERAPY. NO OTHER CONCERNS THIS SHIFT.
--- NOTE | 2021-04-26 11:13 | NUR ---
04/11/21- PER CHART REVIEW WITH DR. DE LA VEGA, PT IS HAVING VARYING O2 DEMAND. THIS MORNING PT WAS ON HIGH FLOW NC WITH DESTAT WHEN TALKING OR DRINKING WATER. PT REFUSES TO PRONING EVEN THOUGH EDUCATED ON THE IMPORTANCE. AIRVO WAS TURNED UP WITH LITTE AFFECT AND PT WAS SWITCHED BETWEEN BIPAP AND AIRVO. NO DISCHARGE PLAN AT THIS TIME.-KJB
[2021-04-26] MEDS ORDERED: NIFE60ER PO (12:06)
[2021-04-26] MEDS ORDERED: Q-Tussin100 MG/5 M PO (13:18)
[2021-04-26] MEDS ORDERED: METPRE2 PO (13:22)
[2021-04-26] MEDS ORDERED: XARELTO20 MG PO (13:23)
--- NOTE | 2021-04-26 21:56 | NUR ---
Patient was discharged via wheelchair with EMS. Patient was discharged in a stable condition, medications given per mar, discharge paperwork and instructions given to patient. Patient is going to [facility].
== END 2021-04-26 21:43 | DRG 177 ==
LOC: ER 18:39 → MEDS 04-04 01:35 → PCU 04-04 01:35 → MEDS 04-16 11:16
PROVIDERS: Family Medicine; Internal Medicine; Pharmacist; Student in an Organized Health Care Education/Training Program; ADMIT Hospitalist
PROC: 3E0333Z Introduction of Anti-inflammatory into Peripheral Vein, Percutaneous Approach (ICD-10-PCS; principal; 2021-04-04)
PROC: 8E0ZXY6 Isolation (ICD-10-PCS; 2021-04-04)
PROC: XW033E5 Introduction of Remdesivir Anti-infective into Peripheral Vein, Percutaneous Approach, New Technology Group 5 (ICD-10-PCS; 2021-04-04)
PROC: 5A09457 Assistance with Respiratory Ventilation, 24-96 Consecutive Hours, Continuous Positive Airway Pressure (ICD-10-PCS; 2021-04-04)
PROC: 5A0945A Assistance with Respiratory Ventilation, 24-96 Consecutive Hours, High Flow/Velocity Cannula (ICD-10-PCS; 2021-04-07)
DX: U07.1 COVID-19 (principal); J96.01 Acute respiratory failure with hypoxia; G92.8 Other toxic encephalopathy; J12.82 Pneumonia due to coronavirus disease 2019; J15.9 Unspecified bacterial pneumonia; I26.99 Other pulmonary embolism without acute cor pulmonale; Z68.41 Body mass index [BMI] 40.0-44.9, adult; I82.443 Acute embolism and thrombosis of tibial vein, bilateral; I24.8 Other forms of acute ischemic heart disease; I10 Essential (primary) hypertension; Z66 Do not resuscitate; E78.5 Hyperlipidemia, unspecified; E87.5 Hyperkalemia; K21.9 Gastro-esophageal reflux disease without esophagitis; R79.89 Other specified abnormal findings of blood chemistry; E03.9 Hypothyroidism, unspecified; E66.01 Morbid (severe) obesity due to excess calories; E11.65 Type 2 diabetes mellitus with hyperglycemia; Y95 Nosocomial condition; K59.00 Constipation, unspecified; R00.1 Bradycardia, unspecified; E11.649 Type 2 diabetes mellitus with hypoglycemia without coma; E83.41 Hypermagnesemia; Z90.710 Acquired absence of both cervix and uterus; Z90.49 Acquired absence of other specified parts of digestive tract; Z99.81 Dependence on supplemental oxygen; Z79.84 Long term (current) use of oral hypoglycemic drugs; Z79.899 Other long term (current) drug therapy; Z78.1 Physical restraint status; Z91.19 Patient's noncompliance with other medical treatment and regimen
CPT/HCPCS: 36415; 36600; 51702; 51798; 71045; 71046; 71260; 80048; 80053; 80202; 82728; 82803; 82947; 83036; 83615; 83735; 83880; 84100; 84145; 84443; 84484; 85025; 85379; 85610; 85730; 86140; 86141; 93005; 93010; 93306; 93970; 94640; 94660; 94762; 96365; 96375; 97110; 97162; 97530; 99285-25; A9270; C1751; C9113; J0360; J0696; J1100; J1644; J1815; J1940; J2543; J2920; J3370; J3480; J7050; J7509; Q9967

== ENCOUNTER 2021-04-29 23:04 | Inpatient (IN) | payer OTHER ==
[~2021-04-29] VITALS: Ht 157.5 cm; Wt 106.2 kg
[~2021-04-29 23:04] MED LIST changes: +AMLO5 PO; +BASAGLAR K100 UNIT/1 SC; +CALCIUM CIT 311 EAC7 PO; +CETI5 PO; +Crestor20 MG PO; +DOCU100 PO; +ESCI20 PO; +EUTHYROX175 MCG PO; +FURO20 PO; +HYDCHL25 PO; +LISI20 PO; +MAGNESIUM OXID500 MG PO; +MEGARED OMEGA PO; +METF500 PO; +METPRE2 PO; +NIFE60ER PO; +OMEP20ER PO; +PIOG15 PO; +POTCHL20ER PO; +Q-Tussin100 MG/5 M PO; +XARELTO20 MG PO; +[UNRECOGNIZED DRUG - CODE] PO
[2021-04-29 23:31] LABS: BASOPHILS ABSOLUTE AUTO 0.02 K/mm3 (0.00-0.23); BASOPHILS PERCENT AUTO 0 % (0-2); EOSINOPHILS PERCENT AUTO 2 % (0-6); Hematocrit 32.5 % (33.0-51.0); Hemoglobin 10.5 g/dL (11.5-16.0); IMMATURE GRAN PERCENT AUTO 1 % (0-1); LYMPHOCYTES ABSOLUTE AUTO 1.07 K/mm3 (0.84-5.20); LYMPHOCYTES PERCENT AUTO 8 % (21-46); MONOCYTES ABSOLUTE AUTO 0.71 K/mm3 (0.16-1.47); MONOCYTES PERCENT AUTO 6 % (4-13); Mean Corpuscular HGB 28.8 pg (26.0-34.0); Mean Corpuscular HGB Conc 32.3 g/dL (31.5-36.5); Mean Corpuscular Volume 89 fL (80-100); Mean Platelet Volume 9.6 fL (9.1-12.4); NEUTROPHILS ABSOLUTE AUTO 10.78 K/mm3 (1.96-9.15); NEUTROPHILS PERCENT AUTO 84 % (41-73); Platelet Count 171 K/mm3 (150-400); RDW Standard Deviation 49.1 fL (35.1-46.3); Red Blood Cell Count 3.64 M/mm3 (3.80-5.20); White Blood Cell Count 12.88 K/mm3 (4.00-11.30)
[2021-04-29 23:45] LABS: Alanine Aminotransfer (ALT/SGP 13 U/L (12-78); Albumin, Blood 2.2 g/dL (3.4-5.0); Albumin/Globulin Ratio 0.5 (0.8-1.8); Alk Phos 74 U/L (50-136); Anion Gap 5 mmol/L (6-16); Aspartate Aminotrans (AST/SGOT 11 U/L (12-37); Bilirubin, Total 0.6 mg/dL (0.1-1.0); Blood Urea Nitrogen 32 mg/dL (8-24); Bun/Creatinine Ratio 15.5 (12.0-20.0); CO2, Blood 29 mmol/L (21-32); Calcium, Blood 9.2 mg/dL (8.5-10.1); Chloride, Blood 106 mmol/L (98-108); Creatinine, Blood 2.06 mg/dL (0.40-1.00); Globulin, Blood 4.2 g/dL (2.2-4.0); Glomerular Filtration Rate 24 (60-); Glucose, Blood 201 mg/dL (70-99); Magnesium, Blood 1.8 mg/dL (1.6-2.4); Potassium, Blood 3.9 mmol/L (3.5-5.5); Sodium, Blood 140 mmol/L (136-145); Total Protein, Blood 6.4 g/dL (6.4-8.2); Troponin I <0.015 ng/mL (0.000-0.040)
[2021-04-30] MEDS ORDERED: ATOR40TA PO (04:04)
[2021-04-30] MEDS ORDERED: COMBIVENT RESPIM4 G1 INH (04:06)
[2021-04-30] MEDS ORDERED: LEVAQUIN750 MG PO (04:08)
[2021-04-30 04:10] LABS: BASOPHILS ABSOLUTE AUTO 0.02 K/mm3 (0.00-0.23); BASOPHILS PERCENT AUTO 0 % (0-2); EOSINOPHILS ABSOLUTE AUTO 0.18 K/mm3 (0.00-0.68); EOSINOPHILS PERCENT AUTO 2 % (0-6); Hematocrit 30.9 % (33.0-51.0); Hemoglobin 9.9 g/dL (11.5-16.0); IMMATURE GRAN ABSOLUTE AUTO 0.14 K/mm3 (0.00-0.10); IMMATURE GRAN PERCENT AUTO 1 % (0-1); LYMPHOCYTES ABSOLUTE AUTO 0.49 K/mm3 (0.84-5.20); LYMPHOCYTES PERCENT AUTO 4 % (21-46); MONOCYTES ABSOLUTE AUTO 0.48 K/mm3 (0.16-1.47); MONOCYTES PERCENT AUTO 4 % (4-13); Mean Corpuscular HGB 28.9 pg (26.0-34.0); Mean Corpuscular Volume 90 fL (80-100); Mean Platelet Volume 9.6 fL (9.1-12.4); NEUTROPHILS ABSOLUTE AUTO 9.72 K/mm3 (1.96-9.15); NEUTROPHILS PERCENT AUTO 88 % (41-73); Platelet Count 149 K/mm3 (150-400); RDW Coefficient Variation 15.1 % (11.7-14.2); RDW Standard Deviation 49.6 fL (35.1-46.3); Red Blood Cell Count 3.43 M/mm3 (3.80-5.20); White Blood Cell Count 11.03 K/mm3 (4.00-11.30)
[2021-04-30] MEDS ORDERED: POTASSIUM CHLO20 ME2 PO (04:11)
[2021-04-30] MEDS ORDERED: ALBU2.5V5 INH (04:11)
[2021-04-30 04:41] LABS: Albumin, Blood 2.1 g/dL (3.4-5.0); Albumin/Globulin Ratio 0.5 (0.8-1.8); Bilirubin, Total 0.7 mg/dL (0.1-1.0); Bun/Creatinine Ratio 16.2 (12.0-20.0); Calcium, Blood 9.2 mg/dL (8.5-10.1); Creatinine, Blood 2.04 mg/dL (0.40-1.00); Potassium, Blood 4.4 mmol/L (3.5-5.5); Total Protein, Blood 6.1 g/dL (6.4-8.2)
--- NOTE | 2021-04-30 06:03 | NUR ---
Shift Summary Pt was admitted from the ED. On arrival pt A&O x4, dyspneic on exertion, SpO2 <90%. Pt was able to sleep after admission and orientation to room. Pt c/o pain associated with cough. Pt had no other c/o. VSS, one episode of desaturation with slow recovery.
[2021-04-30 12:11] LABS: Source, Urine Catheter
[2021-04-30 12:16] LABS: Appearance, Urine Clear (Clear); Bilirubin, Urine Neg (Neg); Blood, Urine Neg (Neg); Color, Urine Yellow (P-Yellow); Glucose Qualitative, Urine Neg (Neg); Ketones, Urine Neg (Neg); Leukocyte Esterase, Urine Neg (Neg); Nitrite, Urine Neg (Neg); Protein, Urine Neg (Neg); Specific Gravity, Urine 1.015 (1.003-1.022); Urobilinogen, Urine NORM (Normal)
[2021-05-01 03:41] LABS: BASOPHILS ABSOLUTE AUTO 0.01 K/mm3 (0.00-0.23); BASOPHILS PERCENT AUTO 0 % (0-2); EOSINOPHILS PERCENT AUTO 0 % (0-6); Hematocrit 29.7 % (33.0-51.0); Hemoglobin 9.5 g/dL (11.5-16.0); IMMATURE GRAN ABSOLUTE AUTO 0.11 K/mm3 (0.00-0.10); IMMATURE GRAN PERCENT AUTO 1 % (0-1); LYMPHOCYTES PERCENT AUTO 5 % (21-46); MONOCYTES PERCENT AUTO 5 % (4-13); Mean Corpuscular HGB 28.9 pg (26.0-34.0); Mean Corpuscular Volume 90 fL (80-100); Mean Platelet Volume 9.7 fL (9.1-12.4); NEUTROPHILS ABSOLUTE AUTO 7.75 K/mm3 (1.96-9.15); NEUTROPHILS PERCENT AUTO 89 % (41-73); Platelet Count 153 K/mm3 (150-400); RDW Coefficient Variation 14.7 % (11.7-14.2); RDW Standard Deviation 48.4 fL (35.1-46.3); Red Blood Cell Count 3.29 M/mm3 (3.80-5.20); White Blood Cell Count 8.67 K/mm3 (4.00-11.30)
[2021-05-01 04:00] LABS: Bun/Creatinine Ratio 18.7 (12.0-20.0); C-REACTIVE PROTEIN, EXT RANGE 8.35 mg/dL (0.000-0.300); Calcium, Blood 8.8 mg/dL (8.5-10.1); Creatinine, Blood 1.93 mg/dL (0.40-1.00); Potassium, Blood 4.8 mmol/L (3.5-5.5)
--- NOTE | 2021-05-01 04:54 | NUR ---
PATIENT ALERT AND ORIENTATED, BED ALARM ON, CALL LIGHT WITHIN REACH, ABLE TO MAKE NEEDS KNOWN, ON HFNC 45L 85% AT BEGINNING OF SHIFT CURRENTLY AT HFNC 40L 70% SATURATIONS 97%, PATIENT SLEPT THROUGH THE NIGHT, VITALS STABLE AND AFEBRILE. DRY COUGH NOTED AT THE BEGINNING OF SHIFT, ROBITUSSIN GIVEN WITH SOME RELIEF NOTED. CORONA CATETHER IS PATENT, DRAINING CLEAR YELLOW URINE, BELOW THE BLADDER AND OFF THE FLOOR.
--- NOTE | 2021-05-01 08:53 | NUR ---
AM NOTE PT ALERT, ORIENTED x4; CALM AND COOPERATIVE WITH CARE. PT REPORTS VOICE RASPY SINCE COVID STARTED. PT RESTING IN BED, ABLE TO ASSIST WITH REPOSITIONING. PT REPORTS SOB WITH ACTIVERTY, PT DESATRUATES TO 70-80'S WITH MOVEMENT, SLOW TO RECOVER; AT REST PT SPO2 >90% ON AIRVO AT 40L AND 70% FIO2. RESP RATE 16-30'S. LS COARSE T/O; MOIST, NONPRODUCTIVE COUGH NOTED. PT DENIES PAIN, CHEST PAIN/PRESSURE, NAUSEA, DIZZINESS AND NUMBNESS/TINGLING. BT NORMOACTIVE x4 QUAD; ABD SOFT, NONTENDER; LAST BM 04/30/21. PT RECEIVED ANTIBIOTICS. TELE RHYTHM/RATE NSR 60-80'S. BP STABLE. OTHER VSS. NO OTHER ACUTE CHANGES NOTED. WILL COTNINUE TO MONITOR.
--- NOTE | 2021-05-01 11:25 | NUR ---
THIS AM TITRATED PT TO 40L AND 65% ON FIO2. THE PATIENT DESATURATED DOWN TO 70'S WITH BEDBATH, INCREASED FIO2 TO 80%, PT SLOW TO RECOVER. WILL CONTINUE TO MONITOR AND TITRATE FIO2.
--- NOTE | 2021-05-01 17:01 | NUR ---
SHIFT SUMMARY PT ALERT, ORIENTED x3; FORGETFUL WITH INTERMITTENT CONFUSION. PT RESTING IN BED, APPEARS TO BE SLEEPING INTERMITTENTLY. PT DENIES PAIN, CHEST PAIN, SOB, NAUSEA, DIZZINESS AND NUMBNESS/TINGLING. PT CATHETER APPEARS TO NOT BE DRAINING, BLADDER SCAN >200; FLUSHED CATHETER WITH 45, WITH NO RETURN; REMOVED CATHETER AND REPLACED WITH NEW ONE, SMALL AMOUNT OF OUTPUT NOTED. HR AVERAGING 100-110'S FOR THE MAJORITY OF SHIFT AT CARDIZEM 10MG/HR. OTHER VSS. ATTEMPTED ENENA AND SUPPOSITORY PER ORDERS, NO BM NOTED AT THIS TIME. NO OTHER ACUTE CHANGES NOTED. WILL CONTINUE TO MONITOR UNITL REPORT GIVEN TO ONCOMING RN.
--- NOTE | 2021-05-01 17:18 | NUR ---
SHIFT SUMMARY PT A&Ox4; CALM AND COOPERATIVE WITH CARE. PT RESTING IN BED, ASSIST WITH MOVEMENT IN BED. PT SOB WITH MINIMAL MOVEMENT AND DESATURATES TO 70-80'S; TITRATED AIRVO TP 40L O2 AND FIO2 AT 80%, ATTEMPTING TO TITRATE T/O SHIFT. PT DENIES PAIN, CHEST PAIN, NAUSEA, DIZZINESS, NUMBNESS/TINGLING. PT RECEIVING IV ANTIBIOTICS AND IV STEROIDS. CORONA IN PLACE PATENT AND DRAINING. OTHER VSS. NO OTHER ACUTE CHANGES NOTED. WILL CONTINUE TO MONITOR UNITL REPORT GIVEN TO ONCOMING RN.
--- NOTE | 2021-05-01 20:08 | NUR ---
PATIENT IS RESTING IN BED, CALL LIGHT WITHIN REACH, BED ALARM ON. VITALS ARE STABLE WITH RR 22-24 HFNC 40L FIO2 80% AT SATURATIONS 94-95%, NO COMPLAINTS OF PAIN, NOTED HOARSE VOICE AND DESATURATIONS WITH EXERTION. WILL CALL MD SEE IF SHE CAN HAVE THROAT LOZEGNERS AND AWAIT FOR NEW ORDERS IF ANY, TALKED TO PATIENT ABOUT SLEEPING ON HER SIDE WITH HELP WITH OXGENDANILO MATUTE, PATIENT LIKES TO SLEEP ON HER BACK. LUNG SOUNDS ARE STILL COARSE WITH MOIST TO DRY COUGH NOTED AT TIMES. WCTM.
--- NOTE | 2021-05-02 06:20 | NUR ---
PATIENT WAS ABLE TO GET UP IN A CHAIR THIS MORNING REQUIRING BOOST 100% FIO2, SITTING ON THE EDGE OF BED AND USING A FWW WITH A ONE PERSON ASSIST, TOOK UPTO 5 MINUTES TO RECOVER R/T COUGHING. PATIENT RECEIVED ROBITUSSIN/CODEINE AND THROAT LOZENGER CURRENTLY FULLY RECOVERED DOING A WORD PUZZLE AND WATCHING TV. PATIENT WOULD LIKE TO TRY TO BE UP OUT OF BED WITH MEALS AND INCREASE MOBILTY.
--- NOTE | 2021-05-02 08:59 | NUR ---
AM NOTE ASSUMED CARE OF PATIENT AT APPROX 0700. PT UP IN CHAIR. ALERT, ORIENTED x4; CALM AND COOPERATIVE WITH CARE. PT 1 PERSON ASSIST WITH WALKER. PT REPORTS SOB, AT REST SPO2 >90% ON AIRVO AT 40L AND 60% FIO2. WITH ACITIVTY PT DESATURATES TO 80'S RECOVERS QUICKLY WITH TEMPORARY BOOST. PT DENIES PAIN, CHEST PAIN/PRESSURE, NAUSEA, DIZZINESS AND NUMBNESS/TINGLING. CORONA PATENT AND DRAINING. TELE NSR 70, BP STABLE. ABD SOFT NONTENDER HYPERACTIVE BT. PT RECEIVED IV ANTIBIOTICS AND STEROIDS. WILL ENCOURAGE ACTIVITY. OTHER VSS. NO OTHER ACUTE CHANGES NOTED. WILL CONTINUE TO MONITOR.
--- NOTE | 2021-05-02 17:19 | NUR ---
SHIFT SUMMARY PT UP IN CHAIR THIS AM AND THIS EVENING WITH 1 PERSON ASSIST. VSS T/O SHIFT. PT REMAINS ON AIRVO 40L AND 60% FIO2, RECOVERS QUICKLY. NS STARTED AT 75 ml/hr PER ORDERS. NO OTHER ACUTE CHANGES NOTED WILL CONTINUE TO MONITOR UNITL REPORT GIVEN TO ONCOMING RN.
--- NOTE | 2021-05-03 06:08 | NUR ---
PATIENT IS ALERT AND ORIENTATED ABLE TO MAKE NEEDS KNOWN, USES CALL LIGHT APPROPRIATELY, PATIENT WAS UP IN THE CHAIR AT BEGINNING OF SHIFT WENT BACK INTO BED AROUND 2230 ONE PERSON ASSIST WITH A FRONT WHEEL WALKER, 100% O2 GIVEN PRIOR TO MOBILITY, SLEPT THROUGHOUT THE NIGHT, GOT PATIENT UP AT 0630 THIS AM AND PUT HER INTO A CHAIR, NOTED DRY SHORT MARIE COUGHS EDUCATION GIVEN ON TAKING DEEP BREATHES, DESATURATIONS TO 85% CURRENTLY ON HFNC 40L FIO2 50%, PATIENT WANTS TO START WORKING WITH PHYSICAL THERAPY AND GOAL IS CURRENTLY TO BE UP IN THE CHAIR WITH ALL MEALS.
--- NOTE | 2021-05-03 10:19 | NUR ---
AM NOTE ASSUMED CARE OF PATIENT AT APPROX 0700. PT UP IN CHAIR. ALERT, ORIENTED. CALM AND COOPERATIVE WITH CARE. PT SOB WITH EXERTION/ACTIVITY; SPO2 >90% ON 40L AT 50% FIO2; DESATURATED WITH MOVEMENT TO 80'S RECOVERS QUICKLY WITH O2 BOOST. PT DENIES PAIN, CHEST PAIN, NAUSEA, DIZZINESS AND NUMBNESS/TINGLING. PT RECIVING IV ANTIBIOTICS AND STEROIDS. OTHER VSS. NO OTHER ACUTE CHANGES NOTED. WILL CONTINUE TO MONITOR.
[2021-05-03 11:50] LABS: Bun/Creatinine Ratio 26.9 (12.0-20.0); Calcium, Blood 8.4 mg/dL (8.5-10.1); Creatinine, Blood 1.45 mg/dL (0.40-1.00); Potassium, Blood 4.1 mmol/L (3.5-5.5)
--- NOTE | 2021-05-03 18:28 | NUR ---
SHIFT SUMMARY CORONA REMOVED THIS AFTERNOON, NO VOID NOTED AT THIS TIME. PT UP IN CHAIR FOR MAJORITY OF SHIFT. PT TITRATED ON AIRVO T/O SHIFT CURRENT SETTINGS 35L AT 45% FIO2 AND SPO2 96%. AIRVO BECAME DISCONNECTED THIS AFTERNOON, SPO2 60'S, REPLACED AND BOOSTED O2 WITH QUICK RECOVERY. PT TOOK AIRO OUT THIS EVENING TO BLOW NOSE AND REPORTS BLOOD AND CLOTS IN TISSUE. OTHER VSS. NO OTHER ACUTE CHANGES NOTED. WILL CONTINUE TO MONITOR UNITL REPORT GIVEN TO ONCOMING RN.
--- NOTE | 2021-05-04 06:03 | NUR ---
SHIFT SUMMARY ASSUMED CARE OF PT AT 1900. PT IS A/OX4. HEART SOUNDS REGULAR, PT AIDE DOWN TO 48 THIS SHIFT, PT WAS ASYMPTOMATIC. LUNG SOUNDS HAVE CRACKLES T/O, PT WAS BETWEEN 15-7L HIGHFLOW NC. PT HAD COUGHING FITS THAT WOULD DESATURATE HER QUICKLY. PT WAS A 1P ASSIT TO BSC AND TO THE BED. NO NEW COMPLAINTS DURING THE NIGHT. PT SLEPT T/O THE NIGHT. CALL LIGHT IN REACH, BED IN LOWEST POSITON.
--- NOTE | 2021-05-04 12:54 | NUR ---
Pt lying in bed a/o x4, able to follow directions, [email or web address]. NSR per monitor, powerglide in R arm, site clean and infusing normal saline as ordered. +2 edema noted in lower extremities. Unable to palpate pedal pulses, pulses via doppler. Lung sounds clear in upper, dim in L base, crackles noted in R base. Pt currently on 9 L high flow nasal cannula. unproductive cough, unlabored respirations, and pt denies SOB. Pt SPO2 70s when moving position, placed pt on 12 L O2 via nonrebreather mask, SPO2 increased to 90s. Skin is CDI. Bowl tones x4, abd is soft and untender. Voiding in bedside commode. MAEW. Pt denies pain. Pt's call light is within reach, bed is in lowest position, bedside table is within reach.
--- NOTE | 2021-05-04 15:27 | NUR ---
Patient is lying in bed and alert. Patient tells me about her "terrible " experience at [facility] and her complication with continuing infection in her lungs. She tells me about her family and how they are pulling for her and are a great support system. She also states that her faith, [employer], is praying for her and encouraging her family along the way of her medical challenges. Patient is amazingly upbeat and smiles often but admits that she has had some darker moments along the way. She explains that she leans into her derik at these times. I normalize patient's experience and provide therapeutic listening, pastoral investment counselor and prayer. Patient responds well and shows signs of being encouraged in her Alevism derik. I will continue to remain available to patient and family.
--- NOTE | 2021-05-05 06:18 | NUR ---
SHIFT SUMMARY ASSUMED CARE OF PT AT 1900. PT IS A/OX4. HEART SOUNDS REGULAR, TELE SHOWS SINUS. LUNG SOUNDS HAVE CRACKLES T/O. PT DYSPNEA WITH EXCERTION. PT WILL DESATURATE TO 70'S DURING TRANSFERS, PT USES 15L ON HIGHFLOW AND 15L ON THE NON REBREATHER FOR TRANSFERS AND PT TAKES A COUPLE MIN TO RECOVER. PT HAS A COURSE COUGH, MEDICATED PER EMAR. PT C/O A STUFFED NOSE AND IS BREATHING THROUGH HER MOUTH. PT WAS A 1P ASSIST TO BSC. URINE CLEAR AND YELLOW, PT HAD TWO BM THIS SHIFT. CALL LIGHT IN REACH, BED IN LOWEST POSITON.
[2021-05-05 09:41] LABS: BASOPHILS ABSOLUTE AUTO 0.03 K/mm3 (0.00-0.23); BASOPHILS PERCENT AUTO 0 % (0-2); EOSINOPHILS ABSOLUTE AUTO 0.07 K/mm3 (0.00-0.68); EOSINOPHILS PERCENT AUTO 1 % (0-6); Hemoglobin 9.5 g/dL (11.5-16.0); IMMATURE GRAN ABSOLUTE AUTO 0.51 K/mm3 (0.00-0.10); IMMATURE GRAN PERCENT AUTO 4 % (0-1); LYMPHOCYTES ABSOLUTE AUTO 1.14 K/mm3 (0.84-5.20); LYMPHOCYTES PERCENT AUTO 10 % (21-46); MONOCYTES ABSOLUTE AUTO 0.38 K/mm3 (0.16-1.47); MONOCYTES PERCENT AUTO 3 % (4-13); Mean Corpuscular HGB 28.4 pg (26.0-34.0); Mean Corpuscular HGB Conc 31.7 g/dL (31.5-36.5); Mean Corpuscular Volume 90 fL (80-100); Mean Platelet Volume 9.9 fL (9.1-12.4); NEUTROPHILS ABSOLUTE AUTO 9.38 K/mm3 (1.96-9.15); NEUTROPHILS PERCENT AUTO 82 % (41-73); NRBC ABSOLUTE 0.04 K/mm3 (0.00-0.02); NRBC Auto 0.3 /100 WBC (0.0-0.2); Platelet Count 219 K/mm3 (150-400); RDW Coefficient Variation 15.2 % (11.7-14.2); RDW Standard Deviation 49.2 fL (35.1-46.3); Red Blood Cell Count 3.34 M/mm3 (3.80-5.20); White Blood Cell Count 11.51 K/mm3 (4.00-11.30)
[2021-05-05 09:53] LABS: Bun/Creatinine Ratio 24.3 (12.0-20.0); Calcium, Blood 8.5 mg/dL (8.5-10.1); Creatinine, Blood 1.36 mg/dL (0.40-1.00); Potassium, Blood 3.7 mmol/L (3.5-5.5)
--- NOTE | 2021-05-05 18:38 | NUR ---
0720-Rec'd pt, aox4, denies any pain, c/o occasional SOB when ambulating from bed/chair to commode. Pt is still requiring increase O2 needs, remains on 12L highflow NC and use of nonrebreather sometimes and diminished lung sounds. Pt c/o discomfort in her nose and had an episode of epistaxis with small clot as she stated her nose is dry. Flonase was ordered and given with some improvement. No other event this shift, will endorse pt care to language specialist RN.
--- NOTE | 2021-05-06 01:35 | NUR ---
ASSUMED CARE OF PT AT 1900. PATIENT BEGAN DESATTING DURING COUGHING ATTACKS INTO THE MID 70'S AND DIDN'T SEEM TO BE RECOVERING. PLACED NONREBREATHER AT 12L ON AND PATIENTS SATS CAME BACK UP TO MID 90'S. PATIENT HAS NASAL CONGESTION AND IS NATURALLY A MOUTH BREATHER PER HER DAUGHTER. PATIENT HAD SOME PAIN WITH COUGHING, MEDICATED PER EMAR. PATIENTS BP IS ON THE HIGH END, PATIENT IS ON STEROIDS WELL. HAS BEEN RESTING.
--- NOTE | 2021-05-06 02:23 | NUR ---
PATIENT HAD COUGHING FIT ALONG WITH GETTING UP TO BSC THAT RESULTED IN DESATTING TO THE MID 60'S. TOOK OVER 10 MINUTES TO RECOVER. HFNC AT 13L AND NONREBREATHER OVER IT AT 12L. PATIENT EVENTUALLY RECOVERED TO MID-LOW 90'S.
[2021-05-06 04:02] LABS: BASOPHILS ABSOLUTE AUTO 0.01 K/mm3 (0.00-0.23); BASOPHILS PERCENT AUTO 0 % (0-2); EOSINOPHILS ABSOLUTE AUTO 0.02 K/mm3 (0.00-0.68); EOSINOPHILS PERCENT AUTO 0 % (0-6); Hematocrit 26.7 % (33.0-51.0); Hemoglobin 8.4 g/dL (11.5-16.0); IMMATURE GRAN ABSOLUTE AUTO 0.43 K/mm3 (0.00-0.10); IMMATURE GRAN PERCENT AUTO 4 % (0-1); LYMPHOCYTES ABSOLUTE AUTO 0.62 K/mm3 (0.84-5.20); LYMPHOCYTES PERCENT AUTO 5 % (21-46); MONOCYTES ABSOLUTE AUTO 0.37 K/mm3 (0.16-1.47); MONOCYTES PERCENT AUTO 3 % (4-13); Mean Corpuscular HGB 28.2 pg (26.0-34.0); Mean Corpuscular HGB Conc 31.5 g/dL (31.5-36.5); Mean Corpuscular Volume 90 fL (80-100); Mean Platelet Volume 9.8 fL (9.1-12.4); NEUTROPHILS ABSOLUTE AUTO 10.35 K/mm3 (1.96-9.15); NEUTROPHILS PERCENT AUTO 88 % (41-73); NRBC ABSOLUTE 0.03 K/mm3 (0.00-0.02); NRBC Auto 0.3 /100 WBC (0.0-0.2); Platelet Count 196 K/mm3 (150-400); RDW Coefficient Variation 15.5 % (11.7-14.2); RDW Standard Deviation 49.6 fL (35.1-46.3); Red Blood Cell Count 2.98 M/mm3 (3.80-5.20)
[2021-05-06 04:22] LABS: Calcium, Blood 8.5 mg/dL (8.5-10.1); Creatinine, Blood 1.25 mg/dL (0.40-1.00); Potassium, Blood 4.2 mmol/L (3.5-5.5)
--- NOTE | 2021-05-06 14:49 | NUR ---
CORONA CATHETER INSERTION 1245-Sheet Turner inserted 16FR Corona catheter, 10ml baloon inflation, sterile process strictly followed. Pt tolerated procedure well, post-insertion output of 500ml noted. Corona was placed per Dr. Garcia's order, pt continues to have decreasing SpO2 with movement and ADL's, will continue to monitor and assess pt.
--- NOTE | 2021-05-06 18:25 | NUR ---
0715-Rec'd pt, aox4, denies any pain. Pt's O2 needs increased significantly with both highflow and non-rebreather ongoing at the same time. Pt was unable to sit in the chair or use bedside commode due to worsening SpO2, olivia catheter was placed and draining well. RT made aware of pt's respiratory status, lung are crackles to diminished bilaterally, AIRVO humidified highflow in place with 60L and FIO2-92%, current SpO-97%, with no addition of non-rebreather. Pt ate dinner without decline in SpO2, 0.9NS infusion stopped and d/c'd per Dr. Garcia due to crackles upon lung auscultation. will endorse pt care to restaurant shift leader RN.
[2021-05-06 20:35] LABS: Source, Urine Catheter
[2021-05-06 20:39] LABS: Appearance, Urine Hazy (Clear); Bilirubin, Urine Neg (Neg); Blood, Urine 2+ (Neg); Glucose Qualitative, Urine 4+ (Neg); Ketones, Urine Neg (Neg); Leukocyte Esterase, Urine 3+ (Neg); Nitrite, Urine Neg (Neg); Protein, Urine Neg (Neg); Urobilinogen, Urine NORM (Normal)
[2021-05-06 20:45] LABS: Color, Urine Pale Yellow (P-Yellow)
[2021-05-06 20:48] LABS: Bacteria Few /hpf; Squamous Epithelial Cells Few /hpf (Few); White Blood Cells, Urine 25-50 /hpf (0-5)
--- NOTE | 2021-05-06 22:08 | NUR ---
ASSUMED CARE OF PT AT 1900. PATIENT SITTING IN BED WATCHING TV. CONTINUES TO DESAT INTO 70'S WITH COUGHING DESPITE BEING ON THE AIRVO 60L AT 89% FIO2. TAKES ABOUT 5 MINUTES TO RECOVER TO MID 90'S. PT REPORTS PAIN IN R UPPER BACK RELATED TO COUGHING. COARSE RUL WITH DIM T/O THE REST. +1 UPPER AND +2 LOWER PITTING EDEMA.
--- NOTE | 2021-05-07 02:45 | NUR ---
A/OX4. PATIENT WAS PLACED ON AIRVO DURING DAYSHIFT D/T DESAT, SETTINGS 60L AND 89% FIO2. PATIENT CONTINUES TO DESAT INTO THE 70'S WITH COUGHING ESPECIALLY. COARSE RUL AND DIM T/O THE REST. PAIN FROM COUGHING IN THE R UPPER SHOULDER AREA. CONGESTED NOSE WITH OCCASIONAL BLOODY NOSE. WET NONPRODUCTIVE COUGH. +2 BLE AND +1 BUE PITTING EDEMA. CORONA DRAINING TO GRAVITY, YELLOW/CLEAR. WILL REPORT TO DAYSHIFT RN.
[2021-05-07 04:09] LABS: BASOPHILS ABSOLUTE AUTO 0.01 K/mm3 (0.00-0.23); BASOPHILS PERCENT AUTO 0 % (0-2); EOSINOPHILS ABSOLUTE AUTO 0.02 K/mm3 (0.00-0.68); EOSINOPHILS PERCENT AUTO 0 % (0-6); Hematocrit 29.2 % (33.0-51.0); Hemoglobin 9.3 g/dL (11.5-16.0); IMMATURE GRAN ABSOLUTE AUTO 0.39 K/mm3 (0.00-0.10); IMMATURE GRAN PERCENT AUTO 3 % (0-1); LYMPHOCYTES ABSOLUTE AUTO 0.49 K/mm3 (0.84-5.20); LYMPHOCYTES PERCENT AUTO 4 % (21-46); MONOCYTES ABSOLUTE AUTO 0.23 K/mm3 (0.16-1.47); MONOCYTES PERCENT AUTO 2 % (4-13); Mean Corpuscular HGB 28.6 pg (26.0-34.0); Mean Corpuscular HGB Conc 31.8 g/dL (31.5-36.5); Mean Corpuscular Volume 90 fL (80-100); Mean Platelet Volume 10.7 fL (9.1-12.4); NEUTROPHILS ABSOLUTE AUTO 10.74 K/mm3 (1.96-9.15); NEUTROPHILS PERCENT AUTO 90 % (41-73); NRBC ABSOLUTE 0.02 K/mm3 (0.00-0.02); NRBC Auto 0.2 /100 WBC (0.0-0.2); Platelet Count 184 K/mm3 (150-400); RDW Coefficient Variation 15.6 % (11.7-14.2); RDW Standard Deviation 51.6 fL (35.1-46.3); Red Blood Cell Count 3.25 M/mm3 (3.80-5.20); White Blood Cell Count 11.88 K/mm3 (4.00-11.30)
[2021-05-07 04:28] LABS: Bun/Creatinine Ratio 23.1 (12.0-20.0); Calcium, Blood 8.6 mg/dL (8.5-10.1); Creatinine, Blood 1.08 mg/dL (0.40-1.00); Potassium, Blood 4.5 mmol/L (3.5-5.5)
--- NOTE | 2021-05-07 10:07 | NUR ---
CARE ASSUMPTION PT A&O X4. VSS. MONITOR SHOWING SB-SR, HR 50's-60's. SPO2 > 90% ON AIRVO @ 55L, FIO2 88%. PT DESAT TO 80's W/ COUGHING OR WHILE EATING. PT ENCOURAGED TO TAKE DEEP BREATHS IN BETWEEN BITES WHILE EATING. PT W/ +2 BUE + BLE EDEMA. EXTREMITIES ELEVATED. CORONA CATH PATENT & DRAINING CLEAR YELLOW URINE.
--- NOTE | 2021-05-07 11:30 | NUR ---
UPDATE / DESAT PT SPO2 DESAT TO 70's W/ PT BRIEF IN BED SELF-REPOSITION. AIRVO INCREASED TO 60L, FIO2 90% & 16L NRB APPLIED WELL. CALL TO RT D/T PT SPO2 UP TO 80's THEN W/ NO FURTHER IMPROVEMENT. RT TO W/ V60 FOR HI-JEREMY TX. AIRVO @ 60L, FIO2 90%.
--- NOTE | 2021-05-07 18:08 | NUR ---
SHIFT SUMMARY PT A&O X4. MONITOR SHOWING SB-SR, HR 50's-60's. SPO2 > 90% ON AIRVO @ 60L, FIO2 90%. PT W/ DESAT W/ ANY REPOSITIONING OR COUGHING W/ DESAT TO 70's or 80's, REQUIRING 16L NRB APPLIED FOR RECOVERY IN ADDITION TO AIRVO. PT THEN W/ RECOVERY, ABLE TO RESUME AIRVO W/ OUT NRB. PT UNABLE TO WORK W/ PHYSICAL THERAPY TODAY D/T DESAT W/ MINIMAL ACTIVITY. PT BP ELEVATED THIS SHIFT. W/ NEW ORDER FOR PRN IV HYDRALAZINE. BP W/ SOME IMPROVEMENT THIS EVENING. PT GIVEN 2 DOSES OF IV LASIX PER EMAR, STILL EDEMATOUS T/O. [facility] PATENT & DRAINING.
[2021-05-07 23:59] LABS: PCO2 Arterial 44.8 mmHg (35-45); PO2 Arterial 54.1 mmHg (80-100); pH Blood Arterial 7.39 (7.35-7.45)
--- NOTE | 2021-05-08 02:17 | NUR ---
INSTRUCTOR PHYSICAL EDUCATION INITIATION PATIENT LAYING DOWN ON AIRVO 65L AND 100% FIO2, PREVIOUSLY SATTING IN THE LOW-MID 90'S. PATIENT USED THE CALL LIGHT AND SAID "I CAN'T BREATHE" TO CHARGE NURSE JACKIE. JACKIE WALKED INTO THE ROOM AND PATIENT WAS DROPPING SATS, TO LOW THE MID 60'S. RT ATTEMPTED TO USE THE 15L NONREBREATHER OVER THE AIRVO, PREVIOUS COUGHING EPISODES SHE REQUIRED THAT TO GET HER SATS BACK UP. HOWEVER, THE PATIENT WASN'T HAVING A COUGHING EPISODE AND HER SATS WEREN'T COMING BACK UP. JACKIE ALSO NOTICED PATIENT HAD INCREASED WORK OF BREATHING AND BEGAN FLUSHING IN THE FACE. THIS RN CALLED [facility] AND OBTAINED CXR AND ATIVAN ORDER. INSTRUCTOR PHYSICAL EDUCATION WAS CALLED AT THAT POINT D/T CONTINUED LOW SATS NOT IMPROVING. WHEN THIS RN WALKED INTO THE ROOM, I NOTICED PATIENT USING ACCESSORY MUSCLES TO BREATHE. ATIVAN PROVIDED NO IMPROVEMENT. CPAP APPLIED AND SATS INCREASED BUT IN MID 80'S IT REACHED A PLATEAU. CXR OBTAINED, DR. PAZ AT BEDSIDE. CXR SHOWED PNEUMO IN R LUNG. URESIL CHEST TUBE INSERTED AT BEDSIDE WITHOUT COMPLICATION. 500ML OUT INITIALLY. ATTEMPTED TO SWITCH PT BACK OVER TO PREVIOUS AIRVO SETTINGS WITH NO SUCCESS (SATTING IN 70'S), CPAP REAPPLIED. CPAP SETTINGS BROUGHT SATS UP TO MID-HIGH 80'S, RT CALLED AND SWITCHED OVER TO BIPAP SETTINGS 06/28/100%. NOW SATTING AT 96%. DESPITE SOME MORE PAIN FROM THE INSERTION THAT SHE WAS MEDICATED WITH PER EMAR - PATIENT TOLERATED THE PROCEDURE WELL.
--- NOTE | 2021-05-08 02:31 | NUR ---
PATIENT ASKED THIS RN TO CALL BRYANT (DAUGHTER). ATTEMPTED CALL BUT RECEIVED VOICEMAIL.
[2021-05-08 04:21] LABS: Hemoglobin 9.5 g/dL (11.5-16.0); Mean Corpuscular HGB 28.4 pg (26.0-34.0); Mean Corpuscular HGB Conc 31.7 g/dL (31.5-36.5); Mean Corpuscular Volume 90 fL (80-100); Mean Platelet Volume 9.6 fL (9.1-12.4); NRBC ABSOLUTE 0.02 K/mm3 (0.00-0.02); NRBC Auto 0.1 /100 WBC (0.0-0.2); Platelet Count 209 K/mm3 (150-400); RDW Coefficient Variation 15.7 % (11.7-14.2); RDW Standard Deviation 51.2 fL (35.1-46.3); Red Blood Cell Count 3.35 M/mm3 (3.80-5.20); White Blood Cell Count 16.24 K/mm3 (4.00-11.30)
[2021-05-08 04:38] LABS: Bun/Creatinine Ratio 23.6 (12.0-20.0); Calcium, Blood 9.1 mg/dL (8.5-10.1); Creatinine, Blood 1.27 mg/dL (0.40-1.00)
[2021-05-08 04:50] LABS: BAND PERCENT MAN 6 % (0-8); BASOPHILS PERCENT MAN 0 % (0-2); EOSINOPHILS PERCENT MAN 0 % (0-6); LYMPHOCYTES ABSOLUTE MAN 0.48 K/mm3 (0.84-5.20); LYMPHOCYTES PERCENT MAN 3 % (21-46); MONOCYTES ABSOLUTE MAN 0.48 K/mm3 (0.16-1.47); MONOCYTES PERCENT MAN 3 % (4-13); MYELOCYTE ABSOLUTE MAN 0.32 K/mm3 (0.00-0.00); MYELOCYTE PERCENT MAN 2 % (0-0); NEUTROPHILS ABSOLUTE MAN 14.94 K/mm3 (1.96-9.15); SEG NEUTROPHILS PERCENT MAN 86 % (41-73); TOTAL CELLS COUNTED 100
--- NOTE | 2021-05-08 05:40 | NUR ---
A/OX4. PLEASE SEE PREVIOUS NOTE FOR UPDATE. RIGHT ANTERIOR CHEST TUBE STILL TIDALING/BUBBLING AT -20cm AND DRAINING SEROSANGUINOUS FLUID (630ML OF 0500). PATIENT C/O PAIN, PRN GIVEN AND PATIENT WAS RESTING COMFORTABLY AND HER 02 SATS CAME UP TO 97% AND RR DOWN TO 20/MIN. WILL REPORT TO DAYSHIFT RN.
--- NOTE | 2021-05-08 11:18 | NUR ---
Patient is sitting up in bed and alert. Patient struggles to communicate because of the full face breathing mask. Patient tells me that she is exhausted and feeling down. I provide soft preparole counseling aide and prayer. Patient responds well and shows signs of an elevated mood. I will continue to remian available to patient and family.
--- NOTE | 2021-05-08 16:53 | NUR ---
DISCHARGE SUMMARY PT HAD EGD WITH CAUTERIZATION OF ULCERS. ULCERS RELATED TO NSAID USE. PT WORKED WITH PHYSICAL AND OCCUPATIONAL THERAPY TODAY. SHE EXPRESSED CONCERN RELATED TO CARING FOR HERSELF AT HOME. HOME HEALTH WITH PHYSICAL THERAPY WAS RECOMMENDED SO THE PATIENT DC'D HOME WITH HOME HEALTH. PRIOR TO DISCHARGE THE PT HAD A SMALL MAROON COLORED STOOL. PHYSICIAN WAS NOTIFIED. PHYSICIAN RECOMMENDED FOLLOWING UP OUT PATIENT FOR A COLONOSCOPY IF MAROON STOOLS PERSISTED. PT EXPRESSED UNDERSTANDING. DC'D HOME WITH FRIEND.
--- NOTE | 2021-05-08 17:44 | NUR ---
SHIFT SUMMARY PT HAD A CHEST TUBE WITH A URESIL DRESSING PLACED LAST NIGHT. CHEST TUBE IS IN PLACE AND TIDALING. MINIMAL DRAINAGE IN URESIL CHAMBER NOTED THIS SHIFT. PT'S O2 SATS ARE DOING MUCH BETTER AND SHE HAS BEEN TITRATED DOWN TO AIRVO FROM BIPAP. MEDICATED FOR PAIN X1 THIS SHIFT. VSS. WILL REPORT TO KENNEY WATTS.
--- NOTE | 2021-05-09 06:12 | NUR ---
THE PATIENT WAS HAVING SOME BLOOD COMING OUT OF THE CHES TUBE. THE CHARGE WAS INFORMED AND AN METAL INSPECTOR WAS CALLED TO TAKE A LOOK AT THE THORA VENT. THE DRESSING WAS REINFORCED. DR BROWNING WAS NOTIFED AND HE STATED HE WILL INFORM THE DAY SHIFT TEAM OF THE NEW DEVELOPMENT. DAY SHIFT RN WILL BE INFORMED. WILL CONTINUE TO MONITOR.
--- NOTE | 2021-05-09 08:12 | NUR ---
SHIFT SUMMARY PATIENT IS RESTING IN BED COMFORTABLY. BED IS IN LOW POSITION. CALL LIGHT IS IN REACH. VITALS WERE STABLE DURING THE NIGHT THE PATIENT IS ON AIRVO 55L AT 95%. THE PATIENT DESATURATES VERY QUICKLY WITH VERY MINIMAL ACTIVITY TO THE 70S% AND IT TAKES A WHILE FOR THE PATIENT TO GET BACK UP TO A GOOD O2 SATURATION. CHEST TUBE IS STILL IN PLACE AND DRAINING. CONCERNS OF BLEEDING AT THE ENTRANCE SITE MD NOTIFIED. THE PATIENT WAS ABLE TO GET SOME REST. OXYGEN DEMAND WAS THE MAIN CONCERN. COMPLAINTS OF PAIN AND PAIN MEDICATION WAS GIVEN. WILL CONTINUE TO MONITR. REPORT GIVEN TO DAY SHIFT RN.
--- NOTE | 2021-05-09 18:20 | NUR ---
0725-Rec'd pt this morning, AOX4, c/o some pain to right chest area which was medicated with Fentanyl 50mcg with relief. BP and HR stable, SpO2 of 83 to 90 on AIRVO 50L, 100% currently. Right substernal chest tube to wall suction, insertion site is observed with dried drainage and dressing reinforced by press writer. Pt's lungs are coarse and diminished bilaterally. Pt is unable to tolerate turn/reposition due to decrease in SpO2 with exertion. Bilateral arms and legs elevated with pillows intermittently for comfort and pressure relief, and pillows adjusted from side to side as possible. 1330-Dr. Vazquez ordered Heparin drip but according to pharmacy, pt rec'd Lovenox subq this morning, therefore Heparin drip will be started tonight at 2100 and if there's a need for labs they will order them, this information was given to press writer by Frandy-sales engineer, will endorse this information to rn night RN. Pt is currently comfortable with spO2 of 88% on same AIRVO settings, bed is in lowest position, call light and person item within pt's reach. She is watching TV.
--- NOTE | 2021-05-09 19:57 | NUR ---
AT SHIFT CHANGE DURING REPORT THE PATIENT WAS DESATURATING AND MAINTINING THE MID 80S SHE DESATURATED TO 76% AND WAS ONLY GOING UP TO 87%. THE PATIENT WAS MAXED OUT ON AIRVO AT 55L AT 100%. THE NEXT STEP WAS TO PUT THE PATIENT ON BIPAP BUT WITH CONCERNS OF THE CHEST TUBE AND THE CHEST XRAY SHOWED SOME PNEUMOTHORAX. THERE WERE CONCERNS OF PUTTING THE PATIENT ON BIPAP WITH THE CHEST TUBE AND THE PNEUMOTHORAX DR CORONA WAS CALLED AT 1916 TO ASK WHAT HE WANTED US TO DO NEXT. DR CORONA ASKED IF CHAMBER A WAS BUBBLING AND CHAMBER C HAD INTERMITTENT BUBBLING RN STATED YES. HE STATED THE PATIENT CAN BE PUT ON BIPAP. RT WAS CALLED AND UPON TRYING TO PUT THE PATIENT ON BIPAP SHE BECAME ANXIOUS AND WAS ASKING FOR SOMETHING TO HELP HER RELAX. DR BROWNING WAS CALLED AT AROUND 1935 TO CHANGE THE FREQUENCY OF THE ATIVAN AND TO ASK IF THE PATIENT CAN BE TRANSFERED TO ICU DUE TO THE PATIENT BEING VERY UNSTABLE. DR CORONA WAS CALLED BACK AT 1946 TO INFORM HIM THAT THE PATIENT WILL BE TRANSFERED TO ICU DUE TO HER BEING VERY ANXIOUS WHEN IT WAS TIME TO BE PUT ON THE BIPAP AND BEING UNSTABLE. DR CORONA ASKED IF THE PATIENT WAS STILL BLEEDING FROM THE SITE AND HE WAS INFORMED SHE WAS BLEEDING AROUND THE THORA VENT SITE. DR CORONA WAS INFORMED SHE WAS TO BE STARTED ON HEPARIN TONIGHT AND HE WANTED US TO HOLD OFF ON THE HEPARIN FOR A POSSIBLE CHEST TUBE TOMORROW. DR CORONA ALSO ORDERED FOR PRECEDEX WHEN SHE HEADS OVER TO THE ICU BECASUE OF THE PATIENT'S SEVERE ANXIETY. PATIENT TO BE TRANSFERED TO ICU 13 AND REPORT WILL BE GIVEN AT BEDSIDE TO MORENITA LOPEZ.
--- NOTE | 2021-05-09 20:50 | NUR ---
ASSUMED CARE PT ARRIVED AT 2029 FROM PCU. RECEIVED REPORT FROM PIRERE CUELLAR RN AT 2044. PT IS ANXIOUS, BUT PLESANT, ALERT AND ORIENTED AND ABLE TO FOLLOW COMMANDS. PRECEDEX STARTED AT 0.2MCG/KG/HR. SHE IS ABLE TO SPEAK ONLY A FEW WORDS AT A TIME DUE TO DYSPNEA. BIPAP IN PLACE PT WAS DESATTING ON AIRVO WITH SETTINGS MAXED OUT AT 55L @ 100%, SATS WERE MAX 87%. BIPAP SETTINGS 14/10, FIO2 100% AND SATS 92-96%. LUNG SOUNDS ARE CLEAR AND DIMINISHED ON LEFT, DIMINISHED IN RIGHT UPPER LOBE AND BASE. THORAVENT PLACED RIGHT ANTERIOR CHEST WALL, HOOKED TO SUCTION WITH LEAK PRESENT AND SEROSANGUINEOUS FLUID DRAINING. DRESSING IS INTACT BUT BLOOD PRESENT AROUND THE SITE. DR. CORONA IS AWARE OF THE LEAK AND IF THE LEAK STOPS, HE IS TO BE CALLED. POSSIBLE NEW CHEST TUBE PLACEMENT TOMORROW. ANTICOAGULANTS HELD TONIGHT. SCD'S PLACED. HR NSR IN 70-80'S. BP HYPERTENSIVE, PT HAS HX OF HTN, PRN HYDRALAZINE AVAILABLE. BOWEL TONES PRESENT X4. CORONA IN PLACE DRAINING CLEAR, YELLOW URINE TO GRAVITY. PT AFEBRILE. PG TO GERALDO, DRESSING C/D/I. ORDERS REVIEWED, WILL TREAT PRESCRIBED.
[2021-05-10 00:13] LABS: Influenza A, PCR NEGATIVE (NEGATIVE); Influenza B, PCR NEGATIVE (NEGATIVE); Resp Syncytial Virus, PCR NEGATIVE (NEGATIVE); SARS-Cov-2 (COVID-19) PCR, MMC NEGATIVE (NEGATIVE)
--- NOTE | 2021-05-10 02:32 | NUR ---
RECHECKED BLOOD GLUCOSE AT 0207 AND WAS 64. 25ML OF D50 GIVEN. CALL PLACED TO DR. BROWNING AND NEW ORDERS FOR D10 TO START AT 50ML/HR, MAY GRADUALLY INCREASE TO 100ML/HR TO KEEP BLOOD GLUCOSE LEVEL WITHIN NORMAL LIMITS. WILL RECHECK BLOOD GLUCOSE 30 MIN AFTER D50 GIVEN.
--- NOTE | 2021-05-10 03:25 | NUR ---
RECHECKED BLOOD GLUCOSE 30 MINUTES AFTER 25ML OF D50 GIVEN AND WAS 114. CALLED DR. BROWNING WITH RESULTS AND ORDERED TO RECHECK GLUCOSE IN 30-45 MINUTES. RECHECKED AND WAS 102. TOLD MAY HOLD ADMINISTRATION OF D10 UNLESS NEEDED FOR LOW GLUCOSE LEVEL.
[2021-05-10 04:44] LABS: BASOPHILS ABSOLUTE AUTO 0.03 K/mm3 (0.00-0.23); BASOPHILS PERCENT AUTO 0 % (0-2); EOSINOPHILS ABSOLUTE AUTO 0.01 K/mm3 (0.00-0.68); EOSINOPHILS PERCENT AUTO 0 % (0-6); Hematocrit 30.3 % (33.0-51.0); Hemoglobin 9.4 g/dL (11.5-16.0); IMMATURE GRAN ABSOLUTE AUTO 0.32 K/mm3 (0.00-0.10); IMMATURE GRAN PERCENT AUTO 2 % (0-1); LYMPHOCYTES ABSOLUTE AUTO 0.38 K/mm3 (0.84-5.20); LYMPHOCYTES PERCENT AUTO 3 % (21-46); MONOCYTES ABSOLUTE AUTO 0.27 K/mm3 (0.16-1.47); MONOCYTES PERCENT AUTO 2 % (4-13); Mean Corpuscular HGB 27.9 pg (26.0-34.0); Mean Corpuscular Volume 90 fL (80-100); Mean Platelet Volume 9.7 fL (9.1-12.4); NEUTROPHILS ABSOLUTE AUTO 12.82 K/mm3 (1.96-9.15); NEUTROPHILS PERCENT AUTO 93 % (41-73); Platelet Count 196 K/mm3 (150-400); RDW Coefficient Variation 15.3 % (11.7-14.2); RDW Standard Deviation 50.6 fL (35.1-46.3); Red Blood Cell Count 3.37 M/mm3 (3.80-5.20); White Blood Cell Count 13.83 K/mm3 (4.00-11.30)
[2021-05-10 05:15] LABS: Albumin, Blood 2.1 g/dL (3.4-5.0); Anion Gap 2 mmol/L (6-16); Blood Urea Nitrogen 34 mg/dL (8-24); Bun/Creatinine Ratio 30.4 (12.0-20.0); CO2, Blood 30 mmol/L (21-32); Chloride, Blood 108 mmol/L (98-108); Creatinine, Blood 1.12 mg/dL (0.40-1.00); Glomerular Filtration Rate 49 (60-); Glucose, Blood 87 mg/dL (70-99); Magnesium, Blood 2.2 mg/dL (1.6-2.4); Phosphorus, Blood 3.5 mg/dL (2.5-4.9); Potassium, Blood 4.4 mmol/L (3.5-5.5); Sodium, Blood 140 mmol/L (136-145)
--- NOTE | 2021-05-10 05:21 | NUR ---
DR. BROWNING CALLED REGARDING BLOOD GLUCOSE TRENDING DOWN. MOST RECENT CBG OF 72. ORDERS GIVEN TO START D5 FLUIDS AT 50ML/HR UNTIL BLOOD GLUCOSE IS STABLE.
--- NOTE | 2021-05-10 06:45 | NUR ---
PT REMAINS ON CPAP WITH PEEP OF 12, FIO2 100%. SPO2 90-92%. SHE QUICKLY DESATS WITH ANY MOVEMENTS OR COUGHING. REPOSITINING KEPT MINIMAL. SHE WAS ANXIOUS T/O THE NIGHT AND PRECEDEX TITRATED TO 0.4MCG/KG/HR, PRN FENTANYL GIVEN X1 TO HELP WITH RESPIRATION RATE IN 40'S. LUNGS ARE DIMINISHED THROUGHOUT, MORESO ON THE RIGHT, AND COARSE/CRACKLES IN LEFT UPPER LOBE. THORAVENT IN RIGHT ANTERIOR CHEST REMAINS IN PLACE AND TO SUCTION WITH SMALL LEAK PRESENT, 30ML SEROSANGUINEOUS OUTPUT THIS SHIFT. HR NOW SINUS AIDE IN 50'S. BP STABLE, WITH OCCASIONAL SBP IN 180'S. MOST RECENT BLOOD GLUCOSE 73 WITH D5 RUNNING AT 50ML/HR. DR. DE LA VEGA TO BEDSIDE THIS AM, REDUCED LONG ACTING INSULIN AND CHANGED TO LOW SLIDING SCALE. CORONA CONTINUES TO DRAIN TO GRAVITY, 500ML YELLOW URINE OUT. WILL REPORT TO ONCOMING RN.
--- NOTE | 2021-05-10 07:30 | NUR ---
ASSUME CARE: I HAVE ASSUMED CARE OF PATIENT AT THIS TIME.
--- NOTE | 2021-05-10 19:30 | NUR ---
ANTERIOR CHEST TUBE REPLACED AND LATERAL CHEST TUBE PLACE TODAY. PT RECEIVED PRN ATIVAN AND FENTANYL FOR PLACEMENT. CPAP REMOVED IN AN ATTEMPT TO ADMINISTER PO MEDICATIONS, HOWEVER PT DESTATTED TO THE HIGH 60'S AND SHE DID NOT TOLERATE BREAKS WELL. PO MEDICATIONS WERE HELD TODAY AND PROVIDER NOTIFIED. PRN HYDRALAZINE GIVEN ONCE FOR HYPERTENSION. IVF INCREASED DUE TO HYPOGLYCEMIA. PT'S DAUGHTER AT BEDSIDE TODAY AND [facility] ANSWERED.
--- NOTE | 2021-05-10 20:33 | NUR ---
ASSUMED CARE OF PT AT 1900, REPORT RECEIVE FROM KO WATTS. PT RESTING IN BED ON CPAP 12/90%. PT ALERT AND ORIENTED, EASILY AROUSES TO VERBAL STIMULI, FOLLOWS COMMANDS. CHEST TUBE TO ANTERIOR RIGHT CHEST AND ANOTHER TO LATERAL RIGHT CHEST. CURRENTLY INFUSING PRECEDEX AT 0.4 MCG/KG AND D5 AT 100 ML/HR. CORONA PATENT AND DRAINING TO GRAVITY YELLOW URINE. PT GRIMACING AND HOLDING ON TO SIDERAIL, ANSWERS YES WHEN ASKED IF IN PAIN, WILL GIVEN PRN MEDS. HR 80'S SINUS ON MONITOR, SBP 170'S, SPO2 88%.
--- NOTE | 2021-05-11 03:31 | NUR ---
UPDATE CBG 226, D5 PLACED ON STANDBY. NO CHANGE IN ASSESSMENT. CPAP SETTINGS PEEP 12 FIO2 85%. PT MAINTAINS SPO2 >90% WHILE ASLEEP, WHEN AWAKE SATS DROP TO MID 80'S. PT SLOW TO RECOVER. DENIES PAIN AT THIS TIME. HR 50-80'S. SBP 130-150'S. LUNGS DIMINISHED ON R SIDE, CLEAR WITH DIM BASES ON L SIDE.
[2021-05-11 04:08] LABS: Hematocrit 29.1 % (33.0-51.0); Hemoglobin 9.4 g/dL (11.5-16.0); Mean Corpuscular HGB 28.6 pg (26.0-34.0); Mean Corpuscular HGB Conc 32.3 g/dL (31.5-36.5); Mean Corpuscular Volume 88 fL (80-100); Mean Platelet Volume 9.7 fL (9.1-12.4); Platelet Count 169 K/mm3 (150-400); RDW Coefficient Variation 15.6 % (11.7-14.2); RDW Standard Deviation 51.6 fL (35.1-46.3); Red Blood Cell Count 3.29 M/mm3 (3.80-5.20); White Blood Cell Count 14.66 K/mm3 (4.00-11.30)
[2021-05-11 04:26] LABS: Albumin, Blood 1.9 g/dL (3.4-5.0); Anion Gap 6 mmol/L (6-16); Blood Urea Nitrogen 32 mg/dL (8-24); Bun/Creatinine Ratio 32.7 (12.0-20.0); CO2, Blood 26 mmol/L (21-32); Calcium, Blood 8.7 mg/dL (8.5-10.1); Chloride, Blood 104 mmol/L (98-108); Creatinine, Blood 0.98 mg/dL (0.40-1.00); Glomerular Filtration Rate 58 (60-); Glucose, Blood 216 mg/dL (70-99); Phosphorus, Blood 3.7 mg/dL (2.5-4.9); Potassium, Blood 4.7 mmol/L (3.5-5.5); Sodium, Blood 136 mmol/L (136-145)
[2021-05-11 04:43] LABS: BAND PERCENT MAN 5 % (0-8); BASOPHILS PERCENT MAN 0 % (0-2); EOSINOPHILS PERCENT MAN 0 % (0-6); METAMYELOCYTE ABSOLUTE MAN 0.14 K/mm3 (0.00-0.00); METAMYELOCYTE PERCENT MAN 1 % (0-0); MONOCYTES ABSOLUTE MAN 0.14 K/mm3 (0.16-1.47); MONOCYTES PERCENT MAN 1 % (4-13); MYELOCYTE ABSOLUTE MAN 0.58 K/mm3 (0.00-0.00); MYELOCYTE PERCENT MAN 4 % (0-0); NEUTROPHILS ABSOLUTE MAN 13.78 K/mm3 (1.96-9.15); SEG NEUTROPHILS PERCENT MAN 89 % (41-73); TOTAL CELLS COUNTED 100
--- NOTE | 2021-05-11 06:08 | NUR ---
SHIFT SUMMARY PT RESTING IN BED ON CPAP, SETTINGS PEEP 12 FIO2 80%. SPO2 MAINTAINED >90% WHILE ASLEEP, WHEN AWAKE SPO2 DIPS TO MID 80'S WITH SLOW RECOVERY. PRECEDEX INFUSING AT 0.3 MCG/KG AND D5 CURRENTLY ON STANDBY DUE TO ELEVATED CBG. PT EASILY AROUSES TO VERBAL STIMULI, ALERT AND FOLLOWING COMMANDS. CHEST TUBES CONTINUE TO SUCTION, SEROSANGUINEOUS DRAINAGE. CORONA DRAINING CLEAR YELLOW URINE TO GRAVITY. PT WITH COMPLAINTS OF PAIN DUE TO CHEST TUBES, PRN FENTANYL GIVEN TWICE THIS SHIFT. WILL CONTINUE TO MONITOR UNTIL REPORT GIVEN TO ONCOMING RN.
--- NOTE | 2021-05-11 09:57 | NUR ---
ASSUMED CARE: PT AWAKENS TO VERBAL STIMULI. ANSWERS QUESTIONS AND FOLLOWS COMMANDS. PT ABLE TO MOVE ALL EXTREMETIES. PT CURRENTLY ON CPAP SETTINGS ARE 12, 85%. TV 300-400. OCC COUGH NON-PRODUCTIVE. RESP RATE IN HIGH 20'S. PT REPORTS FEELING OF SOB W/ CONVERSATION AND MOVEMENT. ORAL CARE COMPLETED BY VINCE WATTS. CHEST TUBES TO RIGHT CHEST WALL. NO CREPITUS NOTED. SEROSANGUINEOUS DRAINAGE NOTED. AIR LEAK NOTED. CHEST TUBES REMAIN TO SUCTION. ABDOMEN SOFT NON-TENDER. CORONA IN PLACE DRAINING TO GRAVITY. CLEAR YELLOW URINE. PG to GERALDO. Precedex infusing @ 0.5 mcg/kg/hr. VSS at this time. CALL LIGHT IN REACH
--- NOTE | 2021-05-11 11:12 | NUR ---
pt changed to bipap from cpap. current settings 08/07 85%. pt tv currently 500s. spo2 92%, rr in the high 20s
--- NOTE | 2021-05-11 13:23 | NUR ---
BREAK FROM BIPAP. PT. NOSE NOTED TO BE RED DURING ORAL CARE. GEL PAD PLACED. PT SWITCHED TO HFNC 70L, 100% FOR BREAK AND ORAL CARE. PT. SPO2 94%, RR REMAINS HIGH 20S. PLANS TO SWITCH TO FULL FACE MASK ONCE BACK ON TO REMOVE PRESSURE FROM NOSE.
--- NOTE | 2021-05-11 14:24 | NUR ---
ADMIT: 04/30/21 DISCHARGE: TBD DX: COVID-19 PNEUMONIA CC: Ivonne MORRIS RESIDENCE: HOME WITH SPOUSE- RECENTLY AT [facility] NEXT OF TOM/CONTACTS: EMIL GUZMÁN, PARENT, BRYANT PATTERSON, PARENT, PRIOR TO ADMIT - DME: OXYGEN CCM: NONE HHC/HOSPICE [facility]- 2020 Update 05/11/21: Per chart review with Dr. Munroe this am, pt. not yet appropriate for discharge. Disposition unknown and dependent upon progress in hospital. Anticipate needs at time of discharge to include: SNF rehab, caregiver assistance post SNF discharge, hospital F/U within 5-7 days.
--- NOTE | 2021-05-11 17:34 | NUR ---
SHIFT SUMMARY: PATIENT REMAINS ALERT & ORIENTED THROUGHOUT SHIFT. REMAINS ON PRECEDEX GTT TITRATED THROUGHOUT DAY FOR ANXIETY AMD BIPAP TOLERANCE. TRIALED ON AIRVO 70L AND 100%. TOLERATED FOR 30 MINUTES. CHANGED TO FULL FACE BIPAP MASK FOR PRESSURE RELIEF ON BRIDGE OF NOSE. FAMILY IN TO VISIT TODAY. VSS THROUGHOUT SHIFT. WILL REPORT TO ONCOMING RN.
[2021-05-12 03:51] LABS: Hemoglobin 9.2 g/dL (11.5-16.0); Mean Corpuscular HGB 28.3 pg (26.0-34.0); Mean Corpuscular HGB Conc 31.7 g/dL (31.5-36.5); Mean Corpuscular Volume 89 fL (80-100); Mean Platelet Volume 9.5 fL (9.1-12.4); Platelet Count 194 K/mm3 (150-400); RDW Coefficient Variation 15.5 % (11.7-14.2); RDW Standard Deviation 50.6 fL (35.1-46.3); Red Blood Cell Count 3.25 M/mm3 (3.80-5.20); White Blood Cell Count 15.74 K/mm3 (4.00-11.30)
[2021-05-12 04:06] LABS: Albumin, Blood 1.8 g/dL (3.4-5.0); Anion Gap 4 mmol/L (6-16); Blood Urea Nitrogen 37 mg/dL (8-24); Bun/Creatinine Ratio 34.9 (12.0-20.0); CO2, Blood 28 mmol/L (21-32); Calcium, Blood 8.6 mg/dL (8.5-10.1); Chloride, Blood 105 mmol/L (98-108); Creatinine, Blood 1.06 mg/dL (0.40-1.00); Glomerular Filtration Rate 53 (60-); Glucose, Blood 222 mg/dL (70-99); Magnesium, Blood 2.1 mg/dL (1.6-2.4); Potassium, Blood 4.9 mmol/L (3.5-5.5); Sodium, Blood 137 mmol/L (136-145)
[2021-05-12 04:11] LABS: BAND PERCENT MAN 8 % (0-8); BASOPHILS PERCENT MAN 0 % (0-2); EOSINOPHILS PERCENT MAN 0 % (0-6); LYMPHOCYTES ABSOLUTE MAN 0.15 K/mm3 (0.84-5.20); LYMPHOCYTES PERCENT MAN 1 % (21-46); MONOCYTES ABSOLUTE MAN 0.15 K/mm3 (0.16-1.47); MONOCYTES PERCENT MAN 1 % (4-13); MYELOCYTE ABSOLUTE MAN 0.15 K/mm3 (0.00-0.00); MYELOCYTE PERCENT MAN 1 % (0-0); NEUTROPHILS ABSOLUTE MAN 15.26 K/mm3 (1.96-9.15); SEG NEUTROPHILS PERCENT MAN 89 % (41-73); TOTAL CELLS COUNTED 100
--- NOTE | 2021-05-12 06:15 | NUR ---
SUMMARY NEURO - INTACT. SOME ANXIETY OVER NIGHT. DECREASED PRECEDEX DUE TO HR OF 39. 0.5MG ATIVAN GIVEN PRN. PERRL. CV. SB 39-60'S. STABLE BP 120-160'S SYSTOLIC. RESP. ON NIPPV 90%. CHEST XRAY COMPLETE MD AWARE. VERY DIMINISHED ALMOST ABSENT BREATH SOUNDS ON RIGHT. 2 CHEST TUBES ON RIGHT. WORSENING PNEUMO PER MD. LEFT LUNG SOUNDS CLEAR AND DIMINISHED. GI NPO-ACTIVE BS. NO BM , 550ML UOP. CLEAR YELLOW. SKIN INTACT.Q2 TURNS.
--- NOTE | 2021-05-12 10:20 | NUR ---
Report recieved from police shift commander RN. Went and turned patient to right side at 0715. Came back at 0845 and placed patient on back side. Neuro beavers patient is alert and oriented with anxiety. She is on a precedex gtt at 0.2 mcg/kg/hr. She was complaining of pain on right side from chest tubes so she was given 50 mcg ivp fentanyl and 1 mg ivp ativan. Having some difficulty with scanner in room. She does THOMPSON x4. SR 60's. BP 90's/60's. PPP. Lungs sounds right side unable to hear air movement, left side is dim due to body habitus. BT +. NPO. Attempted small amount of water with PO tyelnol and she destated down to 83% for about 5 minutes. No BM. Has a f/c with yellow urine. She has a pig tail chest tube in right anterior chest and a large bore on right a lateral. She has air leaks in both canisters. She has crepidus that is right chest to axilary and lower part of neck. Her right breast is about 3 times larger than her left. Can't feel any crepidus there but is tender per MD roxana aware. Patient requests frequent position changes. RT at bedside at 1020 and placed pt on HFNC 70 liters 90% fio2.
--- NOTE | 2021-05-12 14:42 | NUR ---
Per chart review with Dr. Munroe this am, pt. not yet appropriate for discharge. Disposition unknown. Plan to continue to monitor patient's progress and assist in care coordination as needed. Pt. likely to return to SNF post discharge.
--- NOTE | 2021-05-12 15:02 | NUR ---
50 MCG IVP FENTANYL GIVEN FOR PAIN 6/10 IN RIGHT CHEST. SCANNER REMOVED FROM ROOM TO SCAN AT BEDSIDE.
--- NOTE | 2021-05-12 17:11 | NUR ---
TODAY PATIENT WAS PLACED IN HFNC 70 LITERS 90% AT 1030 WAS PLACED BACK ON FULL FACE BIPAP AT 100% AT 1630. SHE HAS HAD COUPLE SIPS OF WATER WITH SOME MEDICATION. AFTER EACH TIME SHE DESTATS TO 82% AND COUGHS. MD IS AWARE AND IS OK WITH DESTATING DOWN TO 79% AND LASTING LONG 10 MINUTES. FAMILY CALLED ABOUT 4 TIMES THROUGH OUT THE DAY ALSO TRYING TO GET MORE THAN 1 VISITOR IN AT A TIME. CHEST TUBES ARE HAVING GOOD OUTPUT. TURNED PATIENT WHEN SHE DIDN'T DECLINE OR WHEN SHE ASKED TO BE READJUSTED. SHE TENDS TO DO POORLY ON LEFT SIDE.
--- NOTE | 2021-05-12 21:36 | NUR ---
ASSUMED CARE: PATIENT A/O X4. GENERALIZED PAIN TO R SIDE WHERE CHEST TUBES LOCATED. REPOSITIONED AND PRECEDEX RUNNING AT 0.3. RESP RATE IS HIGH IN 40-50S A LOT OF THE TIME WHEN IN THE ROOM OBSERVING PATIENT. WANTED TO GIVE HER PO SEROQUEL BUT DECIDED NOT TO DUE TO HIGH RR AND PATIENT COUGHING ALREADY. I WAS NOT COMFORTABLE GIVINE HER PO MEDS TO SWALLOW AT THIS TIME. WILL USE PRN ATIVAN AND FENTANYL THROUGHOUT THE NIGH IF NEEDED
[2021-05-13 04:02] LABS: BASOPHILS ABSOLUTE AUTO 0.02 K/mm3 (0.00-0.23); BASOPHILS PERCENT AUTO 0 % (0-2); EOSINOPHILS PERCENT AUTO 0 % (0-6); Hematocrit 26.1 % (33.0-51.0); Hemoglobin 8.2 g/dL (11.5-16.0); IMMATURE GRAN ABSOLUTE AUTO 0.37 K/mm3 (0.00-0.10); IMMATURE GRAN PERCENT AUTO 3 % (0-1); LYMPHOCYTES PERCENT AUTO 4 % (21-46); MONOCYTES ABSOLUTE AUTO 0.36 K/mm3 (0.16-1.47); MONOCYTES PERCENT AUTO 3 % (4-13); Mean Corpuscular HGB 28.2 pg (26.0-34.0); Mean Corpuscular HGB Conc 31.4 g/dL (31.5-36.5); Mean Corpuscular Volume 90 fL (80-100); Mean Platelet Volume 9.1 fL (9.1-12.4); NEUTROPHILS ABSOLUTE AUTO 12.96 K/mm3 (1.96-9.15); NEUTROPHILS PERCENT AUTO 91 % (41-73); Platelet Count 181 K/mm3 (150-400); RDW Coefficient Variation 15.5 % (11.7-14.2); RDW Standard Deviation 50.5 fL (35.1-46.3); Red Blood Cell Count 2.91 M/mm3 (3.80-5.20); White Blood Cell Count 14.31 K/mm3 (4.00-11.30)
[2021-05-13 04:18] LABS: Albumin, Blood 1.8 g/dL (3.4-5.0); Anion Gap 4 mmol/L (6-16); Blood Urea Nitrogen 39 mg/dL (8-24); Bun/Creatinine Ratio 35.8 (12.0-20.0); CO2, Blood 28 mmol/L (21-32); Calcium, Blood 8.7 mg/dL (8.5-10.1); Chloride, Blood 108 mmol/L (98-108); Creatinine, Blood 1.09 mg/dL (0.40-1.00); Glomerular Filtration Rate 51 (60-); Glucose, Blood 184 mg/dL (70-99); Magnesium, Blood 1.9 mg/dL (1.6-2.4); Phosphorus, Blood 3.8 mg/dL (2.5-4.9); Potassium, Blood 4.6 mmol/L (3.5-5.5); Sodium, Blood 140 mmol/L (136-145)
--- NOTE | 2021-05-13 05:50 | NUR ---
END OF SHIFT SUMAMRY: PATIENT HAS REMAINED A/O X4 ALTHOUGH HER ANXIETY HAS BEEN AN ISSUE OVERNIGHT. PRECEDEX RESTARTED EARLY IN SHIFT AND HAS REMAINED INFUSING AT 0.3. PRN ATIVAN GIVEN X2. SHE HAS BEEN SB/SR LOW 47 BUT RESTING MOSTLY IN MID 50S. BP HAS REMAINED STABLE. BIPAP HAS REMAINED ON 08/07 ON 100%. PATIENT HAS DENIED ORAL CARE EVERY TIME EXCEPT FOR ONCE AT THE BEGINNING OF SHIFT. SHE HAS ONLY PULLED OFF BIPAP ONCE AND SHE WILL DESAT TO 68% ON MONITOR QUICKLY AND TAKE A FEW MINUTES TO RECOVER. O2 SAT BETTER WHEN SHE IS ON HER BACK OR LAYING ON R SIDE. DENIES PAIN OTHER THAN JUST GENERALZIZED DISCOMFORT FROM CHEST TUBES. R ANTERIOR CHEST TUBE AND R LATERAL BOTH CONTINUE TO HAVE AN AIR LEAK WITH MORE OUTPUT FROM THE LATERAL SITE. DRESSINGS REMAIN CLEAN AND INTACT.
--- NOTE | 2021-05-13 09:40 | NUR ---
AT 0800 SPO2 DROPPED STEADILY DOWN FROM 91% DOWN TO LOW 55% WHILE ON BIPAP AT 100% FIO2 AND [address] SAVAGE WAS CALLED AND NOTIFIED OF MORNING CHEST XRAY LOOKING WORSE ACCORDING TO NURSING STAFF AND DECREASED SPO2. HE CAME AND PLACED A LARGE BORE CHEST TUBE IN RIGHT AXILARY. HE REMOVED THE PIG TAIL CHEST TUBE ON THE RIGHT CHEST. DRESSINGS WERE APPLIED TO BOTH SITES. HER OXYGEN IS UP TO 91% AT 0943. DR SAVAGE IS PLEASED WITH RESULTS SINCE CONSIDERING INTUBATION. PATIENT WAS ON PRECEDEX AT 0.4 MCG/KG/HR AND IT WAS REDUCED DOWN TO 0.2 MCG/KG/HR FOR HEART RATE IN THE 40'S. DURING THE PROCEDURE SHE WAS GIVEN 50 MCG IVP FENTANYL FOR PAIN MANAGEMENT. LIDOCAINE WAS USED AT INSERTION SITE. LARGE BORE CHEST TUBE WAS SUTURED IN WITH VASILINE GAUZE IN PLACE. THERE IS A PRESURE DRESSING IN PLACE OVER THE TOP OF THE VASOLINE GAUZE. DR SAVAGE SAID HE WOULD CALL AND NOTIFY FAMILY OF PROCEDURE AND OUTCOME. PATIENT IS CURRENTLY RESTING COMFORTABLY IN BED. CHEST XRAY PERFORMED FOR PLACEMENT AND CHECK FOR POSSIBLE REINFLATION OF LUNG. NEURO SHE DID WAKE UP BREIFLY AND FOLLOW COMMANDS X4. SHEY. NO LUNG SOUNDS ON RIGHT SIDE. LEFT SIDE IS DIM. ON BIPAP AT 20/12 100% FIO2, SHE IS BREATHING AT A RATE IN THE 40'S. BOWEL TONES +. SHE HAS A CORONA CATH IN PLACE. SHE IS CURRENTLY SUPINE SINCE PROCEDURE WITH HOB ELEVATED. BOTH IV SITES ARE WORKING WELL AT THIS TIME.
--- NOTE | 2021-05-13 10:55 | NUR ---
9990 ATTEMPTED TO CALL RENETTA (DAUGHTER- #[phone]) WITH AN UPDATE OF PATIENT'S MORNING. PHONE CALL WENT TO [employer]ICE MAIL. LEFT MESSAGE THAT THERE WAS CHANGE IN PATIENT CONDITION, DID NOT LEAVE DETAILS BUT ASKED HER TO CALL THE HOSPITAL BACK.
--- NOTE | 2021-05-13 14:54 | NUR ---
IN LISTENING TO HER LUNGS NOW, SHE IS COARSE THROUGH OUT. RIGHT SIDE HAS DEFINATE AIR MOVEMENT, COMPARED TO EARLIER THIS MORNING. SHE HAS BEEN ON HFNC 70 LITERS 100% SINCE 1100, PLACED BY RT. AT 1415 SHE WAS GIVEN A FULL BATH WITH LINEN CHANGE. WITH THE ACTIVITY OF TURNING SIDE TO SIDE SHE DESTATED DOWN TO 79% AND CAME UP WITHIN 5-10 MINUTES TO 94%. NO CHANGES MADE TO HFNC SETTINGS.
--- NOTE | 2021-05-13 17:34 | NUR ---
ONCE NEW CHEST TUBE PLACED. PATIENT'S OXYGEN DEMANDS HAVE SETTLED OUT THROUGH OUT THE DAY. FAMILY VISITED OUTSIDE WINDOW. HER DAUGHTER IN LAW SAT AT BEDSIDE FOR A COUPLE HOURS. BOTH SON AND DAUGHTER TALKED WITH RN ABOUT THIS MORNING OVER SPEAKER PHONE. THEY WERE TOLD ABOUT PATIENT REQUIRING ANOTHER CHEST TUBE AND ALMOST REQUIRED INTUBATION. AGAIN THEY PUSHED TO HAVE MORE VISTORS IN ROOM AND THEY WERE TOLD NO AGAIN. SEEMS LIKE THEY REALISE MOM MIGHT NOT MAKE IT HOME THIS TIME. CODE STATUS WAS NOT ADDRESSED WITH THEM.
[2021-05-14 03:15] LABS: BASOPHILS ABSOLUTE AUTO 0.03 K/mm3 (0.00-0.23); BASOPHILS PERCENT AUTO 0 % (0-2); EOSINOPHILS PERCENT AUTO 0 % (0-6); Hemoglobin 7.5 g/dL (11.5-16.0); IMMATURE GRAN ABSOLUTE AUTO 0.32 K/mm3 (0.00-0.10); IMMATURE GRAN PERCENT AUTO 2 % (0-1); LYMPHOCYTES ABSOLUTE AUTO 0.54 K/mm3 (0.84-5.20); LYMPHOCYTES PERCENT AUTO 3 % (21-46); MONOCYTES ABSOLUTE AUTO 0.36 K/mm3 (0.16-1.47); MONOCYTES PERCENT AUTO 2 % (4-13); Mean Corpuscular HGB 27.7 pg (26.0-34.0); Mean Corpuscular HGB Conc 31.3 g/dL (31.5-36.5); Mean Corpuscular Volume 89 fL (80-100); Mean Platelet Volume 9.4 fL (9.1-12.4); NEUTROPHILS ABSOLUTE AUTO 15.84 K/mm3 (1.96-9.15); NEUTROPHILS PERCENT AUTO 93 % (41-73); Platelet Count 200 K/mm3 (150-400); RDW Coefficient Variation 15.4 % (11.7-14.2); RDW Standard Deviation 50.6 fL (35.1-46.3); Red Blood Cell Count 2.71 M/mm3 (3.80-5.20); White Blood Cell Count 17.09 K/mm3 (4.00-11.30)
[2021-05-14 03:36] LABS: Magnesium, Blood 2.2 mg/dL (1.6-2.4)
[2021-05-14 03:38] LABS: Albumin, Blood 1.9 g/dL (3.4-5.0); Anion Gap 2 mmol/L (6-16); Blood Urea Nitrogen 42 mg/dL (8-24); CO2, Blood 28 mmol/L (21-32); Calcium, Blood 8.9 mg/dL (8.5-10.1); Chloride, Blood 113 mmol/L (98-108); Creatinine, Blood 1.05 mg/dL (0.40-1.00); Glomerular Filtration Rate 53 (60-); Glucose, Blood 161 mg/dL (70-99); Phosphorus, Blood 3.3 mg/dL (2.5-4.9); Potassium, Blood 4.4 mmol/L (3.5-5.5); Sodium, Blood 143 mmol/L (136-145)
--- NOTE | 2021-05-14 03:45 | NUR ---
Small increase in right axillary chest tube sanguineous output. Site re-inforced with additional gauze and foam tape.
--- NOTE | 2021-05-14 06:43 | NUR ---
Patient remained stable with HFNC with bipap for 3 hours. Has remained on Precedex and given 1 dose IV Ativan for anxiety. Vital signs stable overnight. Small amount of sanguineous output from right axillary chest tube site. Site reinforced with gauze and tape. 1 episode of desaturation when patient removed bipap mask, but recovered quickly when mask reapplied. Patient placed back on HFNC by RT at end of shift.
--- NOTE | 2021-05-14 08:59 | NUR ---
REPORT RECIEVED FROM PRINTING FILM STRIPPER RN. NEURO STATUS, PATIENT IS DROWSY THIS MORNING WITH SOME MOANING. ORIENTED X4. THOMPSON X4 GENERAL WEAKNESS. LUNG SOUNDS ARE COURSE THROUGH OUT. SHE IS ON HFNC AT 70 LITERS 95% WITH SPO2 AT 89%. sHE WAS JUST REPOSITIONED TO HER RIGHT SIDE WITH HELP OF CEILING LIFT. BOWEL TONES +, NO BM, NPO. CORONA CATH IN PLACE LCEAR YELLOW URINE. SKIN IS GENERALLY DRY BUT INTACT. SHE REMAINS ON PRECEDEX AT RATE OF 0.4 MCG/KG/HR. SHE STATES SHE HAS SOME PAIN BUT TOLERABLE AT THIS TIME.
--- NOTE | 2021-05-14 12:24 | NUR ---
PATIENT TOLERATING HFNC 70 LITERS AT 95% WELL. TRIED HER WITH A SMALL SIP OF WATER, SHE TOLERATED WELL WITH NO COUGHING. GAVE HER A PILL TO SWALLOW WITH SOME WATER, TOLERATED WELL AGAIN. WILL CONTINUE TO GIVE PILLS WITH SMALL AMOUNTS OF WATER TODAY. SHE IS NOT COUGHING OR DESTATING WITH THE SMALL SIPS OF WATER.
--- NOTE | 2021-05-14 14:52 | NUR ---
Review of pt with intesivist. will stay the course for now will reevuate daily.
--- NOTE | 2021-05-14 17:16 | NUR ---
PATIENT HAD A GOOD DAY. SHE HAS REMAINED ON HFNC 70 LITERS AT 90% FIO2, SPO2 83-96% DEPENDING ON LEVEL OF ACTIVITY. SHE HAS HAD A FEW ICE CHIPS TODAYS AND IS SWALLOWING BETTER WITH WATER, SO SHE WAS GIVEN HER ORAL PILLS STARTING IN LATE MORNING. SHE HAS BEEN BEING TURNED Q2 SHE ALLOWS ONLY TO HER RIGHT AND SUPINE SIDES. SHE STILL DESTATS WHEN TURNED TO HER LEFT SIDE. HOPEFULLY DIET CAN BE ADVANCED TOLERATED TOMORROW. CHANGED OUT CANISTER TO RIGHT CHEST TUBE LABELED #1. HER DAUGHTER HAS BEEN AT BEDSIDE SINCE 1400 TILL 1800.
--- NOTE | 2021-05-14 22:58 | NUR ---
UPDATE: AGITATION & CONFUSION PT PULLING @ BiPAP MASK. APPEARS ANXIOUS & CONFUSED. SPEECH IS SLURRED & PT IS UNABLE TO MAKE NEEDS KNOWN. GIVEN SHORT BREAK FROM BiPAP FOR SWABS & ORAL CARE. W/IN LESS THAN 1min, SATS DROPPED SIGNIFICANTLY FROM 93% to 11% & HR INC FROM 70s TO 1teens. MASK REPLACED & W/IN 2mins, PT RECOVERED TO BASELINE. ADDITIONALLY, TRENDING MAPs FOR THE PAST 1.5hr HAVE BEEN 50-60s. DR SAVAGE UPDATED & ORDERS RECEIVED FOR 500ml NS FLUID BOLUS, & HALDOL PRN.
--- NOTE | 2021-05-15 00:20 | NUR ---
UPDATE: PHONE CALL W/ DAUGHTER. SPOKE W/ DAUGHTER, BRYANT, & GIVEN A THOROUGH & DETAILED UPDATE ON THE PT'S PROGRESSION T/O THE EVENING, LABS, BiPAP SETTINGS, MEDS, & PLAN FOR ANXIETY MANAGEMENT. DAUGHTER SEEMED RECEPTIVE & AGREEABLE TO THE PLAN OF CARE. SHE ADDS THE PT REALLY FINDS ALOT OF COMFORT IN HER MUSIC & REQUESTS THE MUSIC BE PAUSED IF NEEDED BUT TO PLEASE MAKE SURE IT IS PLAYING WHILE SHE IS RESTING.
[2021-05-15 04:38] LABS: BASOPHILS ABSOLUTE AUTO 0.03 K/mm3 (0.00-0.23); BASOPHILS PERCENT AUTO 0 % (0-2); EOSINOPHILS PERCENT AUTO 0 % (0-6); Hematocrit 20.7 % (33.0-51.0); Hemoglobin 6.4 g/dL (11.5-16.0); IMMATURE GRAN ABSOLUTE AUTO 0.25 K/mm3 (0.00-0.10); IMMATURE GRAN PERCENT AUTO 1 % (0-1); LYMPHOCYTES ABSOLUTE AUTO 0.39 K/mm3 (0.84-5.20); LYMPHOCYTES PERCENT AUTO 2 % (21-46); MONOCYTES ABSOLUTE AUTO 0.36 K/mm3 (0.16-1.47); MONOCYTES PERCENT AUTO 2 % (4-13); Mean Corpuscular HGB 27.7 pg (26.0-34.0); Mean Corpuscular HGB Conc 30.9 g/dL (31.5-36.5); Mean Corpuscular Volume 90 fL (80-100); Mean Platelet Volume 9.8 fL (9.1-12.4); NEUTROPHILS ABSOLUTE AUTO 16.78 K/mm3 (1.96-9.15); NEUTROPHILS PERCENT AUTO 94 % (41-73); NRBC ABSOLUTE 0.02 K/mm3 (0.00-0.02); NRBC Auto 0.1 /100 WBC (0.0-0.2); Platelet Count 157 K/mm3 (150-400); RDW Coefficient Variation 15.4 % (11.7-14.2); RDW Standard Deviation 49.9 fL (35.1-46.3); Red Blood Cell Count 2.31 M/mm3 (3.80-5.20); White Blood Cell Count 17.81 K/mm3 (4.00-11.30)
[2021-05-15 04:54] LABS: Magnesium, Blood 2.3 mg/dL (1.6-2.4)
[2021-05-15 04:55] LABS: Albumin, Blood 1.8 g/dL (3.4-5.0); Anion Gap 5 mmol/L (6-16); Blood Urea Nitrogen 46 mg/dL (8-24); Bun/Creatinine Ratio 39.7 (12.0-20.0); CO2, Blood 25 mmol/L (21-32); Calcium, Blood 8.8 mg/dL (8.5-10.1); Chloride, Blood 115 mmol/L (98-108); Creatinine, Blood 1.16 mg/dL (0.40-1.00); Glomerular Filtration Rate 47 (60-); Glucose, Blood 273 mg/dL (70-99); Phosphorus, Blood 3.5 mg/dL (2.5-4.9); Potassium, Blood 4.4 mmol/L (3.5-5.5); Sodium, Blood 145 mmol/L (136-145)
--- NOTE | 2021-05-15 07:00 | NUR ---
SHIFT SUMMARY: PT WAS QUITE ANXIOUS & CONFUSED T/O THE NIGHT. OFTEN PULLING @ VS EQUIP & PULLING OFF BiPAP. PT WAS TRIALED ON HF NC FOR COMFORT & IN ATTEMPT TO DEC HER ANXIETY. AFTER APPROX 30min, SHE BEGAN TO SAT IN THE 80s. BiPAP IS NOW IN PLACE AGAIN, SATS >90%. CHEST TUBE DRESSING CHANGED, REPLACED W/ MORE SUBSTANTIAL OCCLUSIVE DRESSINGS. IT STILL APPEARS TO BE LEAKING BLOOD FROM AROUND THE INSERTION SITE, HOWEVER NO AIR LEAK OR SUCKING NOTED FROM EITHER INSERTION SITE. NO NEW OR WORSENING CREPITUS. DR SAVAGE IS AWARE. PLAN TO TRANSFUSE 1 UNIT PRBCs TODAY & DISCUSS POSSIBLE INTUBATION W/ DAY SHIFT WINDOW SYSTEMS ADMINISTRATOR IF PT CONTINUES TO DO POORLY ON BiPAP.
--- NOTE | 2021-05-15 09:53 | NUR ---
ASSUMED PT CARE THIS AM, PT WAS AGITATED PER NOC REPORT, PULLING OF BIPAP, AND WITH ALTERED ALOC. AT ASSUMPTION OF CARE PT SEDATED ON PRECEDEX 1.4, BIPAP SETTINGS 18/12 100%. LUNG COARSE/RONCHI R>L. CHEST TUBE IN PLACE X 2 TO RIGHT LATERAL CHEST. AIR LEAK PRESENT. DUVALL IN TO ASSESS CHEST TUBE SECONDARY TO LEAKING AT SITE. PT RECIEVING 1 UNIT PRBC. FC INTACT AND PATENT. PO MEDS HELD SECONDARY TO BIPAP DEPENDENT/NPO AT THIS TIME. DTR POOJA UPDATED ON PHONE.
[2021-05-15 12:11] LABS: Hemoglobin 8.3 g/dL (11.5-16.0); Mean Corpuscular HGB Conc 31.9 g/dL (31.5-36.5); Mean Corpuscular Volume 88 fL (80-100); Mean Platelet Volume 10.2 fL (9.1-12.4); NRBC ABSOLUTE 0.03 K/mm3 (0.00-0.02); NRBC Auto 0.2 /100 WBC (0.0-0.2); Platelet Count 162 K/mm3 (150-400); RDW Coefficient Variation 15.7 % (11.7-14.2); RDW Standard Deviation 50.4 fL (35.1-46.3); Red Blood Cell Count 2.96 M/mm3 (3.80-5.20); White Blood Cell Count 19.47 K/mm3 (4.00-11.30)
[2021-05-15 13:13] LABS: BAND PERCENT MAN 1 % (0-8); BASOPHILS PERCENT MAN 0 % (0-2); EOSINOPHILS PERCENT MAN 0 % (0-6); LYMPHOCYTES ABSOLUTE MAN 0.19 K/mm3 (0.84-5.20); LYMPHOCYTES PERCENT MAN 1 % (21-46); METAMYELOCYTE ABSOLUTE MAN 0.38 K/mm3 (0.00-0.00); METAMYELOCYTE PERCENT MAN 2 % (0-0); MONOCYTES ABSOLUTE MAN 0.38 K/mm3 (0.16-1.47); MONOCYTES PERCENT MAN 2 % (4-13); MYELOCYTE ABSOLUTE MAN 0.38 K/mm3 (0.00-0.00); MYELOCYTE PERCENT MAN 2 % (0-0); SEG NEUTROPHILS PERCENT MAN 92 % (41-73); TOTAL CELLS COUNTED 100
--- NOTE | 2021-05-15 15:02 | NUR ---
Update 05/15/21: 60 YOF admitted to hospital in respiratory failure with recent hx. of COVID pneumonia. Pneumothorax in hospital setting. Chest tube in place x 2. Patient is currently managed by critical care team in ICU. Pt. is a re-admit with prior hospitalization due to COVID. Post discharge pt. was transferred to [facility] COVID unit. Disposition unknown at this point. Pt. likely to need extensive rehab. Plan to continue to monitor patient's progress and assist in care coordination as needed.
--- NOTE | 2021-05-15 16:37 | NUR ---
Spiritual care visit conducted. I spend over 30 minutes with patient's son, Morales, and the patient. Patient is mostly nonresponsive. Morales talks about wondering about his mom continuing to want this level of support and if she would have different thoughts then previously discussed if she knew the recovery road ahead. We talk about listening to patient's body and what it will indicate in the next couple of days. Morales is admittedly shaken by watching the patient continue to fight and struggle to survive. I provide therapeutic listening, gentle supervisor counseling and guidance and prayer. Morales responds well and shows signs of being encouraged in his derik and increased peace over the medical decisions that may be coming for him to make.
--- NOTE | 2021-05-15 18:20 | NUR ---
SHIFT SUMMARY PRECEDEX TITRATED DOWN TO 1 DURING SHIFT; PT CALM, ABLE TO FOLLOW SIMPLE COMMANDS, LETHARGIC, BUT ATTEMPTS TO TAKE OFF BIPAP WHEN PRECEDEX DECREASED TO 0.8. DISCUSSED WITH MD DUVALL. PLAN TO LET PT SLEEP TONIGHT, GOAL TO TITRATE OFF SEDATION TOMORROW TOLERATED. BIPAP ADJUSTED TO 14/12, FIO2 90-100% TO MAINTAIN SATS 88 AND GREATER. MD DUVALL IN TO ASSESS CHEST TUBES. CHEST TUBE 2 INTACT, PATENT; PER MD DUVALL CHEST TUBE 1 NONFUNCTIONAL BUT PLAN TO LEAVE IN PLACE FOR NOW. DISCUSSED WITH MD AND RT TRIALING PT ON AIRVO THIS EVENING, RT STATES PT DID NOT TOLERATE THIS WELL THIS AM DURING CHANGE OF SHIFT AND DESATTED QUICKLY. PLAN TO LET PT REST ON BIPAP TONIGHT, ATTEMPT AIRVO IN AM. H/H IMPROVED TO 8.3/ AFTER 1 UNIT PRBC. UO 350. PT REPOSITIONED Q 2 HRS. PTS DTR GIULIA AND SON EMIL UPDATED THROUGHOUT SHIFT BY RN AND MD. PLAN TO DISCUSS NUTRITION IN AM.
--- NOTE | 2021-05-15 21:00 | NUR ---
ASSUMED CARE AT 1900 PT LAYING IN BED ON BIPAP FACE MASK WITH SETTINGS 14/12, FIO2 100%. PT VERY LETHARGIC AND OBTUNDED; OCCATIONALLY ANSWERS Y/N QUESTIONS; OCCATIONALLY FOLLOWS DIRECTION OF SQUEEZING HANDS; DID NOT OPE YEYES WHEN ASKED; PRECEDEX INFUSING AT 1.4MCG/KG/HR. BOTH RT LATERAL CHEST TUBES BUBBLING/FLUCTUATING; SEROSANGUINOUS DRAINAGE FROM TUBE; SMALL AMOUNT OF DRAINAGE AROUND INSERTION SITE OF BOTH CHEST TUBES. HR 50'S. SBP 130'S. CORONA IN PLACE AND DRAINING TO GRAVITY. SEE SHIFT ASSESSMENT FOR FULL ASSESSMENT.
--- NOTE | 2021-05-16 02:13 | NUR ---
UPDATE AT 2230 PT SPO2 WAS SUSTAINING 85-86%. DR DUVALL CALLED AND PROVIDED INSTRUCTION THAT 85% WAS ACCEPTABLE AND TO ALSO REPOSITION THE PT SO HER LEFT LUNG WAS DOWN, RT LUNG WAS UP, AND TO HAVE PT SITTING ALL THE WAY UP. AFTER REPOSITIONING PT INSTRUCTED, SPO2 DECREASED INTO THE LOW 80'S TO HIGH 70'S AND THAN STARTED SUSTAINING 75%. AT 2330 DR DUVALL CALLED AND NOTIFIED OF CONDITION, INSTRUCTIONS FOLLOWED TO INTUBATE PT. DR AMAROEZ ON SITE AND WAS ABLE TO INTUBATE PT. BEFORE INTUBATED, PT WAS BECOMING MORE ANXIOUS EVEN AFTER PRN ATIVAN, HALDOL, AND FENTANYL WAS GIVEN. PT WAS OPENING HER EYES BUT NOT FOLLOWING DIRECTIONS. 2352: 2MG VERSED GIVEN 2353: 15MG ETOMIDATE GIVEN 2354: 100MG SUCC'S GIVEN INTUBATED AT 2358: 7.5 ETT, 24CM @ GUMS; OG INSERTED FOLLOWED BY CHEST XRAY. XRAY READ BY DR PAZ AND APPROVED PLACEMENT. VENT SETTINGS AC 16, TV 355, PEEP 15, FIO2 100%. PROPOFOL AND LEVOPHED STARTED AND TITRATED. SEE FLOW SHEET FOR TITRATION. FAMILY CALLED AND NOTIFIED OF INTUBATION. AT [address] DUVALL AGAIN DUE TO SPO2 CONSISTANTLY 80% WITH THE SAME VENT SETTINGS ABOVE. PT PULLING 280 TV, RATE 24, AND ABD BREATHING. PROPOFOL 60MCG/KG/MIN AT THIS TIME; LEVOPHED AT 3MCG/MIN. NEW ORDERS PROVIDED TO START NIMBEX AND GIVEN THE APPROVAL TO INCEARSE PEEP UP TO 20 NEEDED. WILL CONT TO MONITOR.
[2021-05-16 03:36] LABS: PCO2 Arterial 60.9 mmHg (35-45); PO2 Arterial 61.2 mmHg (80-100); pH Blood Arterial 7.08 (7.35-7.45)
[2021-05-16 04:30] LABS: BASOPHILS PERCENT AUTO 0 % (0-2); EOSINOPHILS ABSOLUTE AUTO 0.01 K/mm3 (0.00-0.68); EOSINOPHILS PERCENT AUTO 0 % (0-6); Hematocrit 25.7 % (33.0-51.0); Hemoglobin 8.2 g/dL (11.5-16.0); IMMATURE GRAN ABSOLUTE AUTO 2.57 K/mm3 (0.00-0.10); IMMATURE GRAN PERCENT AUTO 7 % (0-1); LYMPHOCYTES ABSOLUTE AUTO 1.51 K/mm3 (0.84-5.20); LYMPHOCYTES PERCENT AUTO 4 % (21-46); MONOCYTES ABSOLUTE AUTO 0.51 K/mm3 (0.16-1.47); MONOCYTES PERCENT AUTO 1 % (4-13); Mean Corpuscular HGB 28.8 pg (26.0-34.0); Mean Corpuscular HGB Conc 31.9 g/dL (31.5-36.5); Mean Corpuscular Volume 90 fL (80-100); Mean Platelet Volume 9.5 fL (9.1-12.4); NEUTROPHILS ABSOLUTE AUTO 30.88 K/mm3 (1.96-9.15); NEUTROPHILS PERCENT AUTO 87 % (41-73); NRBC ABSOLUTE 0.43 K/mm3 (0.00-0.02); NRBC Auto 1.2 /100 WBC (0.0-0.2); Platelet Count 264 K/mm3 (150-400); RDW Coefficient Variation 16.9 % (11.7-14.2); RDW Standard Deviation 56.1 fL (35.1-46.3); Red Blood Cell Count 2.85 M/mm3 (3.80-5.20); White Blood Cell Count 35.58 K/mm3 (4.00-11.30)
[2021-05-16 04:44] LABS: Albumin, Blood 1.8 g/dL (3.4-5.0); Anion Gap 10 mmol/L (6-16); Blood Urea Nitrogen 44 mg/dL (8-24); Bun/Creatinine Ratio 36.4 (12.0-20.0); CO2, Blood 22 mmol/L (21-32); Calcium, Blood 8.9 mg/dL (8.5-10.1); Chloride, Blood 115 mmol/L (98-108); Creatinine, Blood 1.21 mg/dL (0.40-1.00); Glomerular Filtration Rate 45 (60-); Glucose, Blood 340 mg/dL (70-99); Magnesium, Blood 2.2 mg/dL (1.6-2.4); Phosphorus, Blood 5.9 mg/dL (2.5-4.9); Potassium, Blood 4.2 mmol/L (3.5-5.5); Sodium, Blood 147 mmol/L (136-145)
[2021-05-16 04:47] LABS: BAND PERCENT MAN 11 % (0-8); BASOPHILS PERCENT MAN 0 % (0-2); EOSINOPHILS ABSOLUTE MAN 0.35 K/mm3 (0.00-0.68); EOSINOPHILS PERCENT MAN 1 % (0-6); METAMYELOCYTE ABSOLUTE MAN 1.06 K/mm3 (0.00-0.00); METAMYELOCYTE PERCENT MAN 3 % (0-0); MONOCYTES PERCENT MAN 0 % (4-13); MYELOCYTE ABSOLUTE MAN 0.35 K/mm3 (0.00-0.00); MYELOCYTE PERCENT MAN 1 % (0-0); NEUTROPHILS ABSOLUTE MAN 33.44 K/mm3 (1.96-9.15); PROMYELOCYTE ABSOLUTE MAN 0.35 K/mm3 (0.00-0.00); PROMYELOCYTE PERCENT MAN 1 % (0-0); SEG NEUTROPHILS PERCENT MAN 83 % (41-73); TOTAL CELLS COUNTED 100
--- NOTE | 2021-05-16 07:26 | NUR ---
UPDATE/END OF SHIFT SUMMARY AROUND 0300 PT BP AND SPO2 NOT READING ON MONITOR; TROUBLESHOOTING RESULTED IN ONLY BP MEAN SHOWING IN THE 50'S; DOPPLER BP SHOWED SBP IN 50'S TOO, LEVOPHED TITRATED UP TO 25MCG/MIN; SPO2 OCCATIONALLY NOW READING IN THE 70'S; CONT TO NOT BE VENT COMPLIENT. DR DUVALL CALLED REGARDING CHANGES AND CAME TO UNIT. DR DUVALL ENDED UP PLACING A CENTRAL LINE IN THE RT IJ. AFTERWARDS NEW INSTRUCTIONS WERE TO KEEP PT FLAT FOR BEST VENTALATION. NEW ORDERS FOR VASOPRESSIN, VANCO, AND CEFEPINE. PT IS PARALIZED AND SEDATED. PROPOFOL INFUSING AT 20MCG/KG/MIN, BIS 30-40'S; NIMBEX INFUSING AT 6MCG/KG/MIN; TOF 1/4. INTUBATED WITH VENT SETTINGS AC 36, TV 380, PEEP 14, FIO2 100%. CHEST TUBES STILL IN PLACE TO RT LATERAL CHEST; LARGE AIR LEAKS NOTED; DR DUVALL AWEAR. HR 60-90'S. SBP 120-170; LEVOPHED TITRATED DOWN TO 2MCG/MIN. OG CLAMPED. CORONA IN PLACE AND DRAINING TO GRAVITY. REPORT GIVEN TO STEPHAN Juarez CALLED PT DAUGHTER BRYANT AT 0600 TO UPDATE ABOUT PARALIZING AND CENTRAL LINE PLACEMENT. DR DUVALL TO CALL HER LATER TODAY TO GIVE MORE DETAILS REGARDING PT CONDITION.
--- NOTE | 2021-05-16 08:00 | NUR ---
ASSUMED CARE OF PT, REPORT RCV'D FROM STEFANIE HOLDEN. PT INTUBATED, SEDATED, AND PARALYZED. VENT SETTINGS AC 36/350/14/100% WITH SATS LOW TO MID 80%. NIMBEX AT 6, PROPOFOL @ 20 MCG/KG/MIN, LEVOPHED @ 5, VASO @ 0.04. 2 RIGHT LATERAL CHEST TUBES TO CONTINUOUS SUCTION. CHEST TUBE #1 HAS CONTINUOUS BUBBLING IN CHAMBER C D/T PERSISTENT PNEUMO. RIGHT UPPER CHEST PUNCTURE FROM ATTEMPTED ANTERIOR CHEST TUBE PLACEMENT. DRESSING CHANGED ON RIGHT ANTERIOR PUNCTURE. GAUZE AND PRESSURE DRESSING APPLIED TO SECURE CHEST TUBES. OGT CLAMPED. CORONA PATENT AND DRAINING CLOUDY URINE WITH SEDIMENT. SKIN COOL WITH MOTTLING TO EXTREMETIES. SEE SHIFT ASSESSMENT.
--- NOTE | 2021-05-16 14:07 | NUR ---
Spiritual care visit conducted. Patient's family is bedside. Dr. Gonzales compassionately explains patient's condition and answers family's questions. Family decides to change patient's status to comfort care only. I gather family and say a prayer. I am present with family as RT Peace extubates patient. A life review is conducted with the family as they tell wonderful stories about the patient and express their love to her. Patient expires very peacefully. I provide a final prayer and gather home information ([facility] in [place]). Family continue to grieve appropriately with tears and laughter. Family graciously voice appreciation to the ICU staff as they exit ICU.
--- NOTE | 2021-05-16 14:57 | NUR ---
PT'S FAMILY AT BEDSIDE THIS MORNING FOLLOWING CONVERSATION WITH DR. DUVALL. ATTEMPTS TO WEAN PT OFF PRESSORS AND NIMBEX UNSUCCESFUL. DAUGHTER (BRYANT) AND SON SPOKE WITH PASTORAL CARE AND DECIDED TO MAKE PT COMFORT CARE. NIMBEX TURNED OFF AT 1115 FOR ANTICIPATED EXTUBATION. EXTUBATION AT 1200, TIME OF 1225. PT'S FAMILY AND BAND [employer]SA[employer] OPERATOR JOHNY BAE AT BEDSIDE T/O. DAUGHTER BRYANT TOOK PT'S BELONGINGS WITH HER AND REQUESTED BODY BE RELEASED TO [facility]. [facility] CALLED AT 1350, BODY PICKED UP AT 1445.
== END 2021-05-16 12:25 | DRG 208 ==
LOC: ER 23:04 → PCU 23:59 → ICUW 05-09 20:59
PROVIDERS: Family Medicine; Internal Medicine; Internal Medicine Critical Care Medicine; Student in an Organized Health Care Education/Training Program; ADMIT Internal Medicine
PROC: 8E0ZXY6 Isolation (ICD-10-PCS; 2021-04-29)
PROC: 3E0333Z Introduction of Anti-inflammatory into Peripheral Vein, Percutaneous Approach (ICD-10-PCS; 2021-04-30)
PROC: 0W9930Z Drainage of Right Pleural Cavity with Drainage Device, Percutaneous Approach (ICD-10-PCS; principal; 2021-05-08)
PROC: 5A09457 Assistance with Respiratory Ventilation, 24-96 Consecutive Hours, Continuous Positive Airway Pressure (ICD-10-PCS; 2021-05-10)
PROC: 0W9930Z Drainage of Right Pleural Cavity with Drainage Device, Percutaneous Approach (ICD-10-PCS; 2021-05-10)
PROC: 5A0935A Assistance with Respiratory Ventilation, Less than 24 Consecutive Hours, High Flow/Velocity Cannula (ICD-10-PCS; 2021-05-12)
PROC: 5A1935Z Respiratory Ventilation, Less than 24 Consecutive Hours (ICD-10-PCS; 2021-05-16)
PROC: 0BH18EZ Insertion of Endotracheal Airway into Trachea, Via Natural or Artificial Opening Endoscopic (ICD-10-PCS; 2021-05-16)
PROC: 05HM33Z Insertion of Infusion Device into Right Internal Jugular Vein, Percutaneous Approach (ICD-10-PCS; 2021-05-16)
PROC: 3E033XZ Introduction of Vasopressor into Peripheral Vein, Percutaneous Approach (ICD-10-PCS; 2021-05-16)
DX: U07.1 COVID-19 (principal); J12.82 Pneumonia due to coronavirus disease 2019; J96.21 Acute and chronic respiratory failure with hypoxia; I26.99 Other pulmonary embolism without acute cor pulmonale; G92.9 Unspecified toxic encephalopathy; Z66 Do not resuscitate; Z51.5 Encounter for palliative care; Z68.41 Body mass index [BMI] 40.0-44.9, adult; N17.9 Acute kidney failure, unspecified; J90 Pleural effusion, not elsewhere classified; J93.9 Pneumothorax, unspecified; J95.812 Postprocedural air leak; I10 Essential (primary) hypertension; E78.5 Hyperlipidemia, unspecified; F41.9 Anxiety disorder, unspecified; R77.8 Other specified abnormalities of plasma proteins; Z78.1 Physical restraint status; E11.65 Type 2 diabetes mellitus with hyperglycemia; E66.01 Morbid (severe) obesity due to excess calories; E03.9 Hypothyroidism, unspecified; Z28.21 Immunization not carried out because of patient refusal; K21.9 Gastro-esophageal reflux disease without esophagitis; Z79.4 Long term (current) use of insulin; Z79.899 Other long term (current) drug therapy; Z90.49 Acquired absence of other specified parts of digestive tract; Z90.710 Acquired absence of both cervix and uterus
CPT/HCPCS: 0241U; 31500; 32551; 36415; 36430; 36556; 36600; 51702; 71045; 80048; 80053; 80069; 81001; 81003; 82803; 82947; 83735; 83880; 84145; 84484; 85025; 86140; 86850; 86900; 86901; 86923; 93005; 93010; 94002; 94003; 94640; 94660; 94762; 96365; 96375; 97110; 97161; 97530; 99285-25; A9270; C1729; C1751; J0330; J0360; J0456; J0692; J0696; J1100; J1170; J1630; J1650; J1815; J1940; J2060; J2250; J2270; J2704; J2920; J2930; J3010; J3370; J7030; J7040; J7042; J7050; J7060; J7070; P9016